=== PATIENT | male | born 1940 | race Caucasian/White ===

== ENCOUNTER 2016-04-23 06:00 | Outpatient (CLI) | payer MEDICARE ==
[~2016-04-23] VITALS: Ht 188 cm; Wt 103.0 kg
[~2016-04-23 06:00] MED LIST: ASP325T; ASP325TEC; ASP81TEC PO; ATOR80TA; CHOL2000; CLPD75T; CYCL10TA9 PO; ERGO400C; GLUC1CAP37 PO; MULT1TAB63; NAPR-243 PO; NEBI5TAB8 PO; TRM50T PO; WRF5T PO; [UNRECOGNIZED DRUG - CODE]; [UNRECOGNIZED DRUG - OTHER] TP
[2016-04-23] MEDS ORDERED: CHOL500050 PO (12:24)
[2016-04-23] MEDS ORDERED: APIX2.5T PO (12:24)
== END 2016-04-23 12:32 ==
LOC: PREOP 06:00
PROVIDERS: ATTEND Internal Medicine
DX: Z01.818 Encounter for other preprocedural examination (principal); Z12.11 Encounter for screening for malignant neoplasm of colon; Z86.010 Personal history of colon polyps

== ENCOUNTER 2016-04-25 07:14 | Day surgery (SDC) | payer MEDICARE ==
[~2016-04-25] VITALS: Ht 188 cm; Wt 103.0 kg
[~2016-04-25 07:14] MED LIST changes: +APIX2.5T PO; +CHOL500050 PO
[2016-04-25] MEDS ORDERED: 1/2 NS IV SOLUTION 1,000 ML IV STA (07:40)
--- NOTE | 2016-04-25 07:40 | Pre-Op Note & Conscious Sedat ---
Pre-Operative Progress Note H&P Reviewed The H&P was reviewed, patient examined and no changes noted. Date H&P Reviewed: Apr 25, 2016 Time H&P Reviewed: 07:39 Conscious Sedation Pre-Proced ASA Class: 2 Airway Mallampati Classification: ([place] appropriate class) I. II. III, IV Lungs Heart ASA score ASA 1: a normal healthy patient ASA 2: a patient with a mild systemic disease (mid diabetes, controlled hypertension, obesity ASA 3: a patient with a severe systemic disease that limits activity (angina , COPD, prior Myocardial infarction) ASA 4: a patient with an incapacitating disease that is a constant threat to life (CHF, renal failure) ASA 5: a moribund patient not expected to survive 24 hrs. (ruptured aneurysm) ASA 6: a declared brain patient whose organs are being harvested. For emergent operations, add the letter E after the classification Grade 2 Sedation Plan: Analgesia, Amnesia, Plan communicated to team members, Discussed options with patient/fam, Discussed risks with patient/fam Note The patient is an appropriate candidate to undergo the planned procedure, sedation, and anesthesia. The patient immediately re-assessed prior to indication. MARIO ESTEVEZ MD Apr 25, 2016 07:40
[2016-04-25] MEDS ORDERED: 1/2 NS IV SOLUTION 1,000 ML IV ONE (07:44)
[2016-04-25] MEDS ORDERED: FLUMAZENIL (ROMAZICON) 0.1 MG/ML 5 ML VIAL INJ PRN (07:45)
[2016-04-25] MEDS ORDERED: MIDAZOLAM 2 MG/2 ML (VERSED) VIAL IVP PRN (07:45)
[2016-04-25] MEDS ORDERED: NALOXONE 0.4 MG/ML 1 ML (NARCAN) VIAL IVP PRN (07:45)
[2016-04-25] MEDS ORDERED: LIDOCAINE JELLY 2% (XYLOCAINE) 5 ML TUBE MM PRN (07:45)
[2016-04-25 08:04] VITALS: BP 135/77
[2016-04-25] MEDS ORDERED: fentaNYL INJECTION 100 MCG/2 ML AMP ONE ×2 (08:48→09:23)
[2016-04-25] MEDS ORDERED: MIDAZOLAM 2 MG/2 ML (VERSED) VIAL ONE ×2 (08:48)
[2016-04-25] MEDS ORDERED: LIDOCAINE JELLY 2% (XYLOCAINE) 5 ML TUBE ONE (08:49)
[2016-04-25] MEDS: fentaNYL INJECTION 100 MCG/2 ML AMP IVP PRN ×3 (09:03→09:24)
[2016-04-25 09:45] VITALS: BP 145/79
[2016-04-25 10:10] VITALS: BP 141/95
[2016-04-25 10:21] VITALS: BP 141/95
--- NOTE | 2016-04-28 09:41 | PROCEDURE REPORT ---
PROCEDURE PHYSICIAN: MARIO ESTEVEZ DATE OF PROCEDURE: 04/25/2016 COLONOSCOPY SUMMARY: INDICATION FOR THE PROCEDURE: Screening colonoscopy deemed to be of higher than average risk due to a past history of prostate cancer and radiation therapy. PROCEDURE: The patient was placed in the lateral decubitus position. Prior to undergoing colonoscopy, digital rectal evaluation was performed. Anal sphincter tone was normal. No evidence for prostatic tissue was present and no nodularity was noted. No abnormalities were noted to digital inspection of the anal canal or distal rectal vault. The colonoscope was inserted into the rectum and under direct visualization, advanced to the cecum. The cecum was identified by identification of the ileocecal valve and cecal strap. Photographic documentation was obtained. A careful inspection was made as the colonoscope was withdrawn. The patient tolerated the procedure well. FINDINGS: There was no evidence for internal or external hemorrhoids. 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 No evidence for blood was noted in the colon and no evidence for neoplasia was noted. Moderate diverticular disease prominently noted the sigmoid colon was noted and several right-sided diverticulum were noted as well. No other abnormalities were noted on today's colonoscopy and no evidence for neoplasia was identified. ASSESSMENT: Moderate diverticular disease predominantly noted in the sigmoid colon but with several ascending colonic diverticulum and transverse colonic diverticulum being appreciated as well. 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 There was no palpable evidence for prostatic tissue or cancer. Job ID: [id number] Dictated Date: 04/25/2016 10:48:17 Bulk Mail Clerk Date: 04/28/2016 09:36:40 / ketan SALOMON
--- NOTE | 2016-04-30 07:28 | HISTORY AND PHYSICAL ---
DATE OF ADMISSION: 04/25/2016 DICTATING PHYSICIAN: Dr. Rubio COLONOSCOPY HISTORY AND PHYSICAL: Mr. Sosa is a 75-year-old a white male, in otherwise good health who is being set-up for preventative colonoscopy. He is deemed to be of higher than average risk due to past history of prostate cancer diagnosed in 2004 for which he underwent a radical prostatectomy. There has been no evidence for recurrence. He underwent colonoscopy in 2010, at which time he had evidence for mild diverticular disease. He did not have evidence for neoplasia at that time. He does have some intermittent abdominal pain, but has noted no evidence for rectal bleeding. He reports no bowel habit change and his weight has been stable. PAST MEDICAL HISTORY: Significant for: 1. Carotid endarterectomy in 2006 for critical disease. 2. Moderate coronary disease without history of acute coronary syndrome and has had no evidence for progression of the disease since starting statin therapy and antihypertensive therapy. He exercises on a regular basis. 3. He has had a history of DVT and persistent elevation in d-dimer therapy when he has been off of anticoagulant therapy so he has been on Eliquis 2.5 b.i.d. without evidence for recurrence. FAMILY HISTORY: Pertinent for colon polyps in several family members. He has not aware of any family history for colon cancer. PHYSICAL EXAMINATION: Reveals a white male, appearing younger than his stated age. Blood pressure was 146/80. HEENT EXAMINATION: Unremarkable. NECK: Reveals no JVD, adenopathy or bruits. CHEST: Clear. CV: Reveals regular rate and rhythm without murmur, S3 or S4. ABDOMEN: Soft, supple without masses, organomegaly or tenderness. RECTAL EXAM: Deferred to the time of colonoscopy scheduled for May 02. EXTREMITIES: Reveal trace bilateral edema. Chronic large vessel varicosities are noted bilaterally unchanged. Homans sign is negative. SKIN EVALUATION: Does reveal an actinic keratosis on the helix of the left ear. No other suspicious nevi are noted. He did undergo cryotherapy to this lesion and expectations for erythema, swelling and possible blistering were discussed with the patient. ASSESSMENT: The patient was set-up for colonoscopy for prevention. He has a past history of prostate cancer. He has a family history for colon polyps. He has a personal past history for colon polyps. He was set-up for April 25. Prep instructions were given and questions were answered. Job ID: [id number] Dictated Date: 04/21/2016 18:04:00 Grape Cutter Date: 04/22/2016 08:12:20/ketan
== END 2016-04-25 10:26 | disposition home or self-care (01) ==
LOC: ENDO 07:14
PROVIDERS: ATTEND Internal Medicine
DX: Z12.11 Encounter for screening for malignant neoplasm of colon (principal); K57.30 Diverticulosis of large intestine without perforation or abscess without bleeding; Z86.010 Personal history of colon polyps; Z85.46 Personal history of malignant neoplasm of prostate; Z92.3 Personal history of irradiation

== ENCOUNTER → 2018-01-21 | Outpatient (CLI) | payer MEDICARE ==
--- NOTE | 2018-01-21 15:14 | Diagnostic Imaging Report ---
INDICATION: Low back pain. TIME OF EXAM: 12:54 PM FINDINGS: Three views of the lumbar spine were obtained. Curvature and alignment are normal. Vertebral body heights are maintained. No acute compression fracture is seen. There is significant degenerative disc disease at all levels with significant variable disc space narrowing and marginal spurring. There is multilevel facet arthropathy. Abdominal aorta is heavily calcified. IMPRESSION: Lumbar spondylosis. No acute bony abnormality is detected. Dictated by: Dictated on workstation # [id number]
--- NOTE | 2018-01-21 15:15 | Diagnostic Imaging Report ---
INDICATION: Low back pain and leg weakness. TIME OF EXAM: 12:56 p.m. FINDINGS: The sacroiliac joints have a normal appearance. No sclerosis, ankylosis or osseous erosion is seen. There are multiple surgical clips in the pelvis. IMPRESSION: Unremarkable SI joints. Dictated by: Dictated on workstation # [id number]
== END ==
LOC: RAD 12:17
PROVIDERS: ATTEND Family Medicine
DX: M47.816 Spondylosis without myelopathy or radiculopathy, lumbar region (principal)
CPT/HCPCS: 72100; 72202

== ENCOUNTER → 2018-02-04 | Outpatient (CLI) | payer MEDICARE ==
--- NOTE | 2018-02-04 09:19 | Diagnostic Imaging Report ---
CLINICAL INDICATION: Patient with calcified aorta and back pain. EXAM: Ultrasound of the abdominal aorta. COMPARISON STUDY: None. FINDINGS: The abdominal aorta has smooth contour and caliber without evidence of aneurysms. The maximum AP and transverse diameters for the upper, mid, and distal abdominal aorta are 2.2 cm x 1.7 cm, 2.1 cm x 1.7 cm, and 1.8 cm x 1.7 cm, respectively. Both common iliac artery contours are smooth with normal caliber with the right and left measuring 1.1 cm and 1.1 cm in greatest AP dimension. IMPRESSION: There is no evidence of aneurysmal dilation of the abdominal aorta or bilateral common iliac arteries. Dictated by: Dictated on workstation # [id number]
--- NOTE | 2018-02-04 10:11 | Diagnostic Imaging Report ---
PROCEDURE: MRI lumbar spine. TECHNIQUE: Multiplanar, multisequence MRI of the lumbar spine was performed without contrast. INDICATION: Chronic low back pain. History of prostate cancer. COMPARISON: Lumbar spine radiographs 01/21/2018. FINDINGS: Transitional segment anatomy. For the purposes of this report, there are five lumbar type vertebral bodies with a vestigial disc at S1-S2. Normal alignment. Vertebral body heights are preserved. There are moderate to advanced diffuse degenerative endplate changes which are greatest at L5-S1 where there is fusion of the vertebral bodies. Bone marrow signal is otherwise unremarkable. No abnormal signal in the conus which terminates at L2. Normal morphology of the cauda equina. The visualized abdominal and pelvic contents are unremarkable. L1-L2: No spinal canal, lateral recess or neural foraminal narrowing. L2-L3: Posterior disc osteophyte complex and ligamentous hypertrophy result in mild spinal canal and bilateral lateral recess narrowing. There is also mild bilateral neural foraminal narrowing. L3-L4: Posterior disc osteophyte complex, ligamentous hypertrophy and facet arthropathy all contribute to moderate spinal canal and bilateral lateral recess narrowing. There is moderate right and advanced left neural foraminal narrowing. L4-L5: Posterior disc osteophyte complex, ligamentous hypertrophy and facet arthropathy result in advanced right and mild left lateral recess narrowing. There is mild spinal canal narrowing. Advanced bilateral neural foraminal narrowing. L5-S1: No spinal canal, lateral recess or neural foraminal narrowing. IMPRESSION: 1. Transitional segment anatomy. Please note the numbering on this report may differ from prior radiology or procedure reports. 2. Spondylotic changes result in moderate spinal canal narrowing at L3-L4. No other high-grade spinal canal narrowing. 3. Scattered moderate and advanced neural foraminal and lateral recess narrowing as above. 4. No acute osseous findings. Dictated by: Dictated on workstation # [id number]
--- NOTE | 2018-02-04 10:37 | Diagnostic Imaging Report ---
PROCEDURE: MRI pelvis without contrast. TECHNIQUE: Multiplanar, multisequence MRI of the pelvis was performed without contrast. INDICATION: Back pain. There is a small area of increased T2 signal identified in right aspect of the sacrum, approximately level of S2. This is nonspecific but could represent a very small area of insufficiency fracture. The primary abnormality is an area of the curvilinear low signal on T1-weighted images within the supra-acetabular location on the left. This shows moderate surrounding edema and is consistent with an insufficiency fracture. The superior and inferior pubic rami are unremarkable. Iliac bones appear unremarkable. Proximal femora are unremarkable. IMPRESSION: Findings consistent with pelvic insufficiency fracture in the left supra-acetabular location. There is also a small area of indeterminate edema in the right sacral ala which may represent a second location of insufficiency fracture. Left sacral ala is unremarkable. No other significant abnormality is seen. Dictated by: Dictated on workstation # [id number]
== END ==
LOC: RAD 07:45
PROVIDERS: ATTEND Nurse Practitioner Family
DX: M48.061 Spinal stenosis, lumbar region without neurogenic claudication (principal); M25.78 Osteophyte, vertebrae; M46.86 Other specified inflammatory spondylopathies, lumbar region; M99.73 Connective tissue and disc stenosis of intervertebral foramina of lumbar region; M47.817 Spondylosis without myelopathy or radiculopathy, lumbosacral region; I70.0 Atherosclerosis of aorta; M53.3 Sacrococcygeal disorders, not elsewhere classified; Z85.46 Personal history of malignant neoplasm of prostate; Z98.1 Arthrodesis status
CPT/HCPCS: 72148; 72195; 76775

== ENCOUNTER → 2018-03-04 | Outpatient (CLI) | payer MEDICARE ==
--- NOTE | 2018-03-04 14:43 | Diagnostic Imaging Report ---
INDICATION: Prostate cancer with radiation. COMPARISON: None. FINDINGS: AP Spine L1-L4: [BMD (g/cm2): 1.602] [T-Score: 3.0] [Z-Score: 2.9] [BMD Previous: ] [BMD % Change: ] LT Hip Neck: [BMD (g/cm2): .0879] [T-Score: -1.5] [Z-Score: -0.5] LT Hip Total: [BMD (g/cm2):1.079] [T-Score:-0.2] [Z-Score: 0.3] [BMD Previous: ] [BMD % Change: ] RT Hip Neck: [BMD (g/cm2):0.922] [T-Score:-1.1] [Z-Score:-0.2] RT Hip Total: [BMD (g/cm2):1.004] [T-score:-0.7] [Z-Score:-0.2] [BMD Previous: ] [BMD % Change: ] *Indicates significant change from prior examination based on 95% confidence level. World Health Organization criteria for BMD interpretation classify patients as Normal (T-score at or above -1.0), Osteopenic (T-score between -1.0 and -2.5) or Osteoporotic (T-score at or below -2.5). LIMITATIONS AND MODIFICATION: None. FRACTURE RISK (FRAX SCORE): The ten year probability of (%): Major Osteoporotic Fracture: [ ] Hip Fracture: [ ] IMPRESSION: 1. Normal bone mineral density. 2. Baseline examination. 3. See below National Osteoporosis Foundation guidelines on when to potentially initiate pharmacologic therapy. Based on the National Osteoporosis Foundation Guidelines, pharmacologic treatment should be initiated in any of the following, unless clinical conditions suggest otherwise: * Any patient with prior fragility fracture of the hip or vertebrae. A spine fracture indicates 5X risk for subsequent spine fracture and 2X risk for subsequent hip fracture. * Osteoporosis (T-score <-2.5). * Postmenopausal women and men age 50 and older with low bone mass/osteopenia (T-score between -1.0 and -2.5) by DXA and 10-year major osteoporotic fracture greater than 20% or a 10-year probability of hip fracture greater than 3%. These fracture risks are supplied above in the FRAX score, if applicable. * Clinician judgment and/or patient preferences may indicate treatment for people with 10-year fracture probabilities above or below these levels. Dictated by: Dictated on workstation # [id number]
== END ==
LOC: RAD 09:33
PROVIDERS: ATTEND Nurse Practitioner Family
DX: M89.9 Disorder of bone, unspecified (principal); C61 Malignant neoplasm of prostate; Z92.21 Personal history of antineoplastic chemotherapy
CPT/HCPCS: 36415; 77080; 82306

== ENCOUNTER 2018-10-26 09:28 | Inpatient (IN) | payer MEDICARE | END 2018-10-28 13:12 | disposition home or self-care (01) | LOC: 4TH 09:28 | DX: I48.0 Paroxysmal atrial fibrillation (principal); I50.21 Acute systolic (congestive) heart failure; D68.2 Hereditary deficiency of other clotting factors; C79.10 Secondary malignant neoplasm of unspecified urinary organs; I25.10 Atherosclerotic heart disease of native coronary artery without angina pectoris; I73.9 Peripheral vascular disease, unspecified; E78.00 Pure hypercholesterolemia, unspecified; I10 Essential (primary) hypertension; I07.1 Rheumatic tricuspid insufficiency; I65.23 Occlusion and stenosis of bilateral carotid arteries; R23.0 Cyanosis; M19.91 Primary osteoarthritis, unspecified site; Z90.79 Acquired absence of other genital organ(s); Z85.46 Personal history of malignant neoplasm of prostate; Z86.718 Personal history of other venous thrombosis and embolism; Z86.711 Personal history of pulmonary embolism; Z79.01 Long term (current) use of anticoagulants; Z97.4 Presence of external hearing-aid ==

== ENCOUNTER → 2018-10-26 | Outpatient (CLI) | payer MEDICARE ==
[~2018-10-26] MED LIST changes: +ACET-2650 PO; +APIX5TAB PO; +ATOR40TA70 PO; +DIGO250T15 PO; +DILT120C82 PO; +METO-395 PO; +TIZA2TAB4 PO; +TRAM50TA2 PO; +TRIA1CAP4 PO
== END ==
LOC: CARD 07:52
PROVIDERS: ATTEND Internal Medicine
DX: I08.1 Rheumatic disorders of both mitral and tricuspid valves (principal); I48.91 Unspecified atrial fibrillation
CPT/HCPCS: 93306

== ENCOUNTER 2018-12-15 07:15 | Observation (INO) | payer MEDICARE ==
[2018-12-15] VITALS (16 sets, daily range): BP systolic 94–161; BP diastolic 60–109
[~2018-12-15] VITALS: Ht 187 cm; Wt 91.2 kg
[2018-12-15] MEDS ORDERED: NS IV 1000 ML 1,000 ML IV SCH (07:21)
[2018-12-15] MEDS ORDERED: LIDOCAINE 2% VISCOUS 15 ML UDC ONE (07:26)
[2018-12-15] MEDS ORDERED: NS IV 1000 ML 1,000 ML ONE (07:26)
[2018-12-15 07:56] LABS: HEMOGLOBIN 14.1 G/DL (13.3-17.7); RED CELL DISTRIBUTION WIDTH 14.7 % (10.0-14.5); WHITE BLOOD COUNT 6.6 10^3/uL (4.3-11.0)
[2018-12-15 08:09] LABS: ALANINE AMINOTRANSFERASE 23 U/L (0-55); ALBUMIN 4.3 GM/DL (3.2-4.5); ALKALINE PHOSPHATASE 93 U/L (40-136); BUN/CREATININE RATIO 19; CALCIUM 9.4 MG/DL (8.5-10.1); CARBON DIOXIDE 28 MMOL/L (21-32); CHLORIDE 102 MMOL/L (98-107); GFR ESTIMATED > 60; GLUCOSE 100 MG/DL (70-105); POTASSIUM 3.9 MMOL/L (3.6-5.0); SODIUM 139 MMOL/L (135-145); TOTAL PROTEIN 7.2 GM/DL (6.4-8.2)
[2018-12-15] MEDS ORDERED: proPOfol 200 MG/20 ML (DIPRIVAN) VIAL IV ONE (08:17)
[2018-12-15] MEDS ORDERED: MIDAZOLAM 5 MG/5 ML (VERSED) VIAL ONE (08:18)
--- NOTE | 2018-12-15 08:18 | Diagnostic Imaging Report ---
Indication: Atrial fibrillation Frontal chest obtained at 747 hours am, and compared to 1:25 PM Heart and mediastinal silhouette are normal appearance. There are mild chronic appearing increased basilar markings which are similar to the prior study. There is no new consolidation or pneumothorax or pleural fluid. IMPRESSION: Chronic appearing increased basilar markings. No acute consolidation or pleural fluid. Dictated by: Dictated on workstation # [id number]
[2018-12-15] MEDS ORDERED: meTOprolol 5 MG/5 ML (LOPRESSOR) VIAL ONE (08:47)
--- NOTE | 2018-12-15 08:50 | NUR ---
SPOKE WITH PT, WENT THRU EXT MED HISTORY WELL CALLING RUBÉN TO COMPLETE THE MED REC. ALL MEDICATIONS HAVE GOOD FILL DATES AND PT WAS ABLE TO TELL ME HOW HE TAKES ALL HIS HOME MEDS. OTC MEDS: ACETAMINOPHEN 650M PRN
--- NOTE | 2018-12-15 08:54 | Anesthesia-General Post-Op ---
MAC Patient Condition Mental Status/LOC: Same as Preop Cardiovascular: Satisfactory Nausea/Vomiting: Absent Respiratory: Satisfactory Pain: Controlled Complications: Absent Post Op Complications Complications None Follow Up Care/Instructions Patient Instructions None needed. Anesthesiology Discharge Order Discharge Order Patient is doing well, no complaints, stable vital signs, no apparent adverse anesthesia problems. No complications reported per nursing. ANGEL MARTINEZ CRNA Dec 15, 2018 08:54
--- NOTE | 2018-12-15 08:54 | Anesthesia-Procedure Note ---
Procedures/Interventions Procedure Start/Stop/Diagnosis Date of Procedure: Dec 15, 2018 (0835) Start Time: 08:35 Referring Physician: Arlene Stop Time: 08:48 MIRACLE/Cardioversion Anesthesia Type: MAC ASA Class: 3 Medications Versed 2mg, Propofol 100mg Monitors and Equipment: BP Cuff - Right, Continuous EKG, End Tidal CO2, IV, Pulse Oximeter READING,ANGEL Mullins CRNA Dec 15, 2018 08:54
--- NOTE | 2018-12-15 08:56 | Cardiac Procedure Note-CS/ASA ---
Pre-Procedure Note Pre-Op Procedure Note H&P Reviewed The H&P was reviewed, patient examined and no changes noted. Date H&P Reviewed: Dec 15, 2018 (0835) Time H&P Reviewed: 08:56 Conscious Sedation Pre-Proced Time 08:56 ASA Score 3 For ASA 3 and 4: Consider anesthesia and medical clearance. Also, for patients with a history of failed moderate sedation consider anesthesia. Airway Lungs Heart ASA score ASA 1: a normal healthy patient ASA 2: a patient with a mild systemic disease (mid diabetes, controlled hypertension, obesity x ASA 3: a patient with a severe systemic disease that limits activity (angina, COPD, prior Myocardial infarction) ASA 4: a patient with an incapacitating disease that is a constant threat to life (CHF, renal failure) ASA 5: a moribund patient not expected to survive 24 hrs. (ruptured aneurysm) ASA 6: a declared brain- patient whose organs are being harvested. For emergent operations, add the letter E after the classification Mallampati Classification Grade 3 Sedation Plan Analgesia, Amnesia, Plan communicated to team members, Discussed options with patient/fam, Discussed risks with patient/fam The patient is an appropriate candidate to undergo the planned procedure, sedation, and anesthesia. The patient immediately re-assessed prior to indication. MOE SIMON MD Dec 15, 2018 08:56
--- NOTE | 2018-12-15 08:57 | Cardioversion ---
Cardioversion PROCEDURE PHYSICIAN: Moe Jacobs DATE OF PROCEDURE: 12/15/18 DIRECT EXTERNAL ELECTRICAL CARDIOVERSION: Indications: Atrial Fibrillation with rapid ventricular rate Preoperative diagnoses: Atrial Fibrillation with rapid ventricular rate Postoperative diagnosis: Sinus rhythm, Successful Electrical Cardioversion Anesthesia: By Anesthesia services Complications: None Specimen: None Contrast: 0 Flouroscopy: none Procedure Details: The patient was brought the slab stripper after informed consent was taken, all the risks and complications were explained including the risk of stroke. Electrical cardioversion was carried out with anesthesia support with propofol. 200 joules of synchronized shock was delivered through external patches which promptly restored sinus rhythm. The patient tolerated the procedure well. Conclusions: Successful MIRACLE with electrical cardioversion with no complication, patient stayed in sinus rhythm for a few minutes then went back to atrial fibrillation. Patient will be admitted and loaded with amiodarone and an attempt for cardioversion tomorrow morning Final Diagnosis: Paroxysmal atrial fibrillation Palpitation Hypertension Hyperlipidemia MOE JACOBS MD Dec 15, 2018 8:57 am
[2018-12-15] MEDS ORDERED: DRON400T2 PO (09:00)
[2018-12-15] MEDS ORDERED: DRONEDARONE TABLET 400 MG TABLET PO SCH (09:00)
[2018-12-15] MEDS ORDERED: AMIODARONE INJECTION 450 MG in D5W IV SOLUTION (EXCEL) 250 ML IV SCH (09:15)
[2018-12-15] MEDS ORDERED: AMIODARONE FOR BOLUS 150 MG in D5W 100 ML IVPB 100 ML IV ONE ×4 (09:15)
[2018-12-15] MEDS: AMIODARONE INJECTION 450 MG in D5W IV SOLUTION (EXCEL) 250 ML IV SCH ×2 (09:30→18:03)
--- NOTE | 2018-12-15 09:55 | NUR ---
DURING PROCEDURE VERSED 2MG IV AND PROPOFOL 100MG IV USED PER ANESTHESIA.
[2018-12-15] MEDS ORDERED: meTOprolol 5 MG/5 ML (LOPRESSOR) VIAL IV ONE (10:00)
[2018-12-15] MEDS: meTOprolol SUCCINATE 100 MG (TOPROL XL) TAB PO SCH (10:45)
[2018-12-15] MEDS: AMIODARONE 200 MG (CORDARONE) TAB PO SCH ×2 (10:45→20:07)
[2018-12-15] MEDS: DIGOXIN 0.25 MG (LANOXIN) TAB PO SCH (10:45)
[2018-12-15] MEDS: APIXABAN 5 MG (ELIQUIS) TABLET PO SCH ×2 (10:45→20:07)
[2018-12-15] MEDS: TRIAMTERENE/HCTZ 75-50 (MAXZIDE,DYAZIDE) TABLET PO SCH (11:24)
[2018-12-16] VITALS (8 sets, daily range): BP systolic 97–125; BP diastolic 53–78
[2018-12-16] MEDS ORDERED: NS IV 500 ML 500 ML ONE (07:31)
[2018-12-16] MEDS ORDERED: proPOfol 200 MG/20 ML (DIPRIVAN) VIAL IV ONE (07:37)
[2018-12-16] MEDS ORDERED: LIDOCAINE 2% VISCOUS 15 ML UDC ONE (07:37)
[2018-12-16] MEDS ORDERED: MIDAZOLAM 2 MG/2 ML (VERSED) VIAL ONE (07:37)
[2018-12-16] MEDS ORDERED: fentaNYL INJECTION 100 MCG/2 ML AMP ONE (07:38)
--- NOTE | 2018-12-16 08:23 | Cardiac Procedure Note-CS/ASA ---
Pre-Procedure Note Pre-Op Procedure Note H&P Reviewed The H&P was reviewed, patient examined and no changes noted. Date H&P Reviewed: Dec 16, 2018 (0835) Time H&P Reviewed: 08:00 Conscious Sedation Pre-Proced Time 08:00 ASA Score 3 For ASA 3 and 4: Consider anesthesia and medical clearance. Also, for patients with a history of failed moderate sedation consider anesthesia. Airway Lungs Heart ASA score ASA 1: a normal healthy patient ASA 2: a patient with a mild systemic disease (mid diabetes, controlled hypertension, obesity x ASA 3: a patient with a severe systemic disease that limits activity (angina, COPD, prior Myocardial infarction) ASA 4: a patient with an incapacitating disease that is a constant threat to life (CHF, renal failure) ASA 5: a moribund patient not expected to survive 24 hrs. (ruptured aneurysm) ASA 6: a declared brain- patient whose organs are being harvested. For emergent operations, add the letter E after the classification Mallampati Classification Grade 3 Sedation Plan Analgesia, Amnesia, Plan communicated to team members, Discussed options with patient/fam, Discussed risks with patient/fam The patient is an appropriate candidate to undergo the planned procedure, sedation, and anesthesia. The patient immediately re-assessed prior to indication. MOE SIMON MD Dec 16, 2018 08:23
--- NOTE | 2018-12-16 08:24 | Cardioversion ---
Cardioversion PROCEDURE PHYSICIAN: Moe Jacobs DATE OF PROCEDURE: 12/16/18 DIRECT EXTERNAL ELECTRICAL CARDIOVERSION: Indications: Atrial Fibrillation with rapid ventricular rate Preoperative diagnoses: Atrial Fibrillation with rapid ventricular rate Postoperative diagnosis: Sinus rhythm, Successful Electrical Cardioversion History: 78 years old gentleman with atrial fibrillation, underwent MIRACLE with electrical cardioversion yesterday, failed to maintain sinus rhythm, he was started on amiodarone bolus and a drip and scheduled for cardioversion today Anesthesia: By Anesthesia services Complications: None Specimen: None Contrast: 0 Flouroscopy: none Procedure Details: The patient was brought the geochemical laboratory technician after informed consent was taken, all the risks and complications were explained including the risk of stroke. Electrical cardioversion was carried out with anesthesia support with propofol. 200 joules of synchronized shock was delivered through external patches which promptly restored sinus rhythm. The patient tolerated the procedure well. Conclusions: Successful electrical cardioversion in terminating atrial fibrillation Final Diagnosis: Paroxysmal atrial fibrillation Frequent PVCs Hypertension Hyperlipidemia MOE JACOBS MD Dec 16, 2018 08:24
--- NOTE | 2018-12-16 08:26 | Cardiology Progress Note ---
Subjective Date Seen by Provider: Dec 16, 2018 Time Seen by Provider: 08:25 Subjective/Events-last exam Patient is laying down in bed, feeling better. No new complaint Review of Systems General: No Chills, No Night Sweats, No Fatigue, No Malaise, No Appetite, No Other HEENT: No Head Aches, No Visual Changes, No Eye Pain, No Ear Pain, No Dysphasia, No Sinus Congestion, No Post Nasal Drip, No Sore Throat, No Other Pulmonary: No Dyspnea, No Cough, No Pleuritic Chest Pain, No Other Cardiovascular: No: Chest Pain, Palpitations, Orthopnea, Paroxysmal Noc. Dyspnea, Edema, Lt Headedness, Other Objective-Cardiology Exam Last Set of Vital Signs Vital Signs 12/15/18 12/16/18 12/16/18 08:47 04:00 08:00 Temp 36.4 Pulse 66 Resp 26 B/P (MAP) 125/65 (85) O2 Delivery Room Air O2 Flow Rate 3.00 Capillary Refill : I&O Intake and Output 12/16/18 00:00 Intake Total 1400 ml Output Total 1320 ml Balance 80 ml Intake Oral 1050 ml IV Total 350 ml Output Urine Total 1320 ml # Bowel Movements 1 General: Alert, Oriented X3, Cooperative HEENT: Atraumatic, PERRLA Neck: Supple, No JVD, No Thyromegaly Lungs: Clear to Auscultation, Normal Air Movement Heart: Regular Rate, Normal S1, Normal S2, No Murmurs Abdomen: Normal Bowel Sounds, Soft, No Tenderness, No Hepatosplenomegaly, No Masses Extremities: No Clubbing, No Cyanosis, No Edema, Normal Pulses, No Tenderness/Swelling Skin: No Rashes, No Breakdown, No Significant Lesion Neuro: Normal Gait, Normal Speech, Strength at 5/5 X4 Ext, Normal Tone, Sensat ion Intact Psych/Mental Status: Mental Status NL, Mood NL A/P-Cardiology Admission Diagnosis Paroxysmal atrial fibrillation Premature ventricular contractions Hypertension Hyperlipidemia Assessment/Plan Paroxysmal atrial fibrillation, underwent MIRACLE with electrical cardioversion yesterday, failed to maintain sinus rhythm, I started him on amiodarone bolus and a drip and repeated cardioversion today and it was successful in terminating atrial fibrillation Hypertension, borderline hypotension with medication Frequent premature ventricular contractions. Hyperlipidemia. MOE SIMON MD Dec 16, 2018 08:26
[2018-12-16] MEDS ORDERED: AMIO200T4 PO (08:28)
[2018-12-16] MEDS ORDERED: DILTIAZEM 120 MG (CARDIZEM CD) CAP PO SCH (09:00)
[2018-12-16] MEDS: AMIODARONE 200 MG (CORDARONE) TAB PO SCH (09:04)
[2018-12-16] MEDS: meTOprolol SUCCINATE 100 MG (TOPROL XL) TAB PO SCH (09:05)
[2018-12-16] MEDS: TRIAMTERENE/HCTZ 75-50 (MAXZIDE,DYAZIDE) TABLET PO SCH (09:05)
[2018-12-16] MEDS: DIGOXIN 0.25 MG (LANOXIN) TAB PO SCH (09:05)
[2018-12-16] MEDS: APIXABAN 5 MG (ELIQUIS) TABLET PO SCH (09:05)
--- NOTE | 2018-12-16 09:45 | NUR ---
Pt is [employer] and involved with local [employer]. Associate Sales Manager provided prayer and blessing.
--- NOTE | 2018-12-16 10:27 | Progress Note ---
Standard Progress Note Progress Notes/Assess & Plan Date Seen by a Provider: Dec 16, 2018 Time Seen by a Provider: 08:00 Progress/Assessment & Plan consult for sedation for cardioversion. asa3. start time 0800 end time 804. 2mg versed given and 40mg propofol. tolerated procedure well NUPUR GREEN CRNA Dec 16, 2018 10:26
--- NOTE | 2018-12-16 16:22 | NUR ---
0745--LIDOCAINE GIVEN 075--TIME IN 756--1 SHOCK GIVEN@ 200 JOULES, PT IN SR 08--TIME OUT V/S: HR 62, RESP 13, BP 125/65, O2 100 2L NC, TEMP 36.3 ANESTHESIOLOGIST GAVE: 2 OF VERSED AND 40 OF PROPOFOL
== END 2018-12-16 11:17 | disposition home or self-care (01) ==
LOC: CATH 07:15 → ICU 09:30
PROVIDERS: ADMIT Internal Medicine Cardiovascular Disease; ATTEND Internal Medicine Cardiovascular Disease
DX: I48.0 Paroxysmal atrial fibrillation (principal); I25.10 Atherosclerotic heart disease of native coronary artery without angina pectoris; I65.29 Occlusion and stenosis of unspecified carotid artery; I11.9 Hypertensive heart disease without heart failure; E78.2 Mixed hyperlipidemia; Z79.899 Other long term (current) drug therapy; Z79.01 Long term (current) use of anticoagulants; Z86.718 Personal history of other venous thrombosis and embolism; Z85.46 Personal history of malignant neoplasm of prostate; Z90.79 Acquired absence of other genital organ(s); Z87.891 Personal history of nicotine dependence; Z83.3 Family history of diabetes mellitus; Z82.3 Family history of stroke; Z82.49 Family history of ischemic heart disease and other diseases of the circulatory system; Z80.9 Family history of malignant neoplasm, unspecified
CPT/HCPCS: 36415; 71045; 80053; 85027; 87081; 93005; 93312; 93320; 93325; 99211

== ENCOUNTER → 2019-05-30 | Outpatient (CLI) | payer MEDICARE ==
[~2019-05-30] VITALS: Ht 188 cm; Wt 97.0 kg
[~2019-05-30] MED LIST changes: +AMIO200T4 PO; +CATHETER FLUSH 10 ML SYR IV PRN; +DRON400T2 PO; -METO-395 PO; +MTP100TCR PO; +REGADENOSON 0.4 MG/5 ML SYR (LEXISCAN) IV ONE; -TRAM50TA2 PO
[2019-05-30 09:15] VITALS: BP 106/78
--- NOTE | 2019-05-30 15:08 | STRESS TEST ---
DATE OF SERVICE: 05/30/2019 EXERCISE AND LEXISCAN MYOVIEW STRESS REPORT REFERRING PHYSICIAN: Martin Rubio MD Baseline heart rate is 68, baseline blood pressure 135/88. Baseline EKG is sinus rhythm with no ischemic changes. In summary, the patient was injected with 10.92 mCi of technetium-99 Myoview and the resting images were obtained. Then, the patient started exercising with a baseline heart rate, blood pressure and EKG mentioned above. The patient was able to exercise for 6 minutes on standard Darren protocol, unable to achieve maximum heart rate. Test was terminated and converted to Lexiscan Myoview stress test. The patient received 0.4 mg of Lexiscan followed by 28.3 mCi of technetium-99 Myoview. Throughout the test, there were no EKG changes. The resting and stress images were reviewed and compared in the short axis, horizontal long axis, and vertical long axis views. Review of the images showed diaphragmatic attenuation with mild decreased uptake involving the inferoapical segment and inferolateral wall with subtle reversibility. SSS is 5, SDS 3, TID value 1.05. On the gated images, the left ventricle appeared to be normal size with normal contractility. Calculated ejection fraction 51%. CONCLUSION: 1. The patient tolerated Lexiscan well, unable to exercise beyond 6 minutes on standard Darren protocol. There are no EKG changes on exercise. 2. Diaphragmatic attenuation affecting the quality of the images with mild decreased uptake at the inferoapical segment and the apical segment of the inferolateral wall with no significant ischemia or infarction. 3. Normal left ventricular size with normal contractility. Calculated ejection fraction 51%. Job ID: [id number] DocumentID: [id number] Dictated Date: 05/30/2019 12:44:24 Investment Analyst Date: 05/30/2019 15:08:01 Dictated By: MOE SIMON MD
== END ==
LOC: CARD 07:53
PROVIDERS: ATTEND Internal Medicine Cardiovascular Disease
DX: I25.10 Atherosclerotic heart disease of native coronary artery without angina pectoris (principal); I65.29 Occlusion and stenosis of unspecified carotid artery; I10 Essential (primary) hypertension; E78.2 Mixed hyperlipidemia
CPT/HCPCS: 78452; 93017

== ENCOUNTER → 2019-06-10 | Outpatient (CLI) | payer MEDICARE ==
[~2019-06-10] MED LIST changes: -CATHETER FLUSH 10 ML SYR IV PRN; -REGADENOSON 0.4 MG/5 ML SYR (LEXISCAN) IV ONE
--- NOTE | 2019-06-10 12:52 | Diagnostic Imaging Report ---
PROCEDURE: CT abdomen and pelvis without contrast. TECHNIQUE: Multiple contiguous axial images were obtained through the abdomen and pelvis without the use of intravenous contrast. Auto Exposure Controls were utilized during the CT exam to meet ALARA standards for radiation dose reduction. INDICATION: Prostate carcinoma with increasing PSA. COMPARISON: Correlation is made with prior CT from 04/11/2014. FINDINGS: The lung bases are clear. No discrete liver mass is detected. Gallbladder is unremarkable. No biliary ductal dilatation is seen. Pancreas and spleen are unremarkable. No adrenal mass is detected. Kidneys contain tiny calcifications which may represent nonobstructing calculi. There is no hydronephrosis. Aorta is heavily calcified but nonaneurysmal. There is a soft tissue density in the left periaortic location, suggestive of an enlarged lymph node. This measures 2.2 x 1.3 cm. This was not present on prior exam. A second lymph node inferior to this, anterior to the left iliopsoas muscle at the level of the aortic bifurcation, is enlarged measuring 1.5 x 1.6 cm. This is new as well. Just inferior to this, another lymph node is seen anterior to left psoas muscle measuring 1.8 x 1.4 cm. This is new. No mesenteric lymphadenopathy is identified. The small and large bowel loops appear to be normal in caliber. There is no obstruction. There is no free fluid or fluid collection. There are postop changes of prostatectomy. A nodule to the right of the rectum and adjacent to the surgical clip has decreased in size measuring 1.3 cm compared with 1.8 cm. No inguinal lymphadenopathy is seen. The bladder is unremarkable. Evaluation of the bony structures does show development of a lytic lesion involving the right aspect of the L4 vertebral body as well as the right aspect of the L5 vertebral body. There is a lytic lesion of the right L4 transverse process and pedicle as well. A lytic lesion of the right iliac bone is noted. IMPRESSION: 1. Development of enlarged lymph nodes in the left periaortic location of the central retroperitoneum as well as left common iliac location when compared with prior CT from 04/11/2014. This is concerning for developing metastatic disease. Developing osteolytic lesions in the lower lumbar spine and right iliac bone are also noted, concerning for metastatic disease. Dictated by: Dictated on workstation # [id number]
--- NOTE | 2019-06-10 15:26 | Diagnostic Imaging Report ---
INDICATION: Prostate carcinoma and elevated PSA. COMPARISON: No prior bone scans are available for comparison. TECHNIQUE: Patient was administered 26.2 mCi technetium-99m MDP intravenously and whole-body imaging was performed after three-hour delay. FINDINGS: Uptake of activity by the axial and appendicular skeleton is noted. There is uptake by the kidneys with excretion into urinary bladder. There is some mild uptake in the upper right midline chest in the region of the sternoclavicular junction. This is indeterminate. There is also uptake in the lower lumbar spine on the right side. This likely accounts for activity within the lytic lesion noted on recent CT. No other suspicious abnormalities are seen. IMPRESSION: Findings suggestive of a metastatic lesion in the lower lumbar spine on the right side correlating with the lytic lesion on CT. There is an indeterminate lesion at the sternoclavicular junction on the right side. Dictated by: Dictated on workstation # [id number]
== END ==
LOC: CARD 11:39
PROVIDERS: ATTEND Urology
DX: R97.21 Rising PSA following treatment for malignant neoplasm of prostate (principal); Z85.46 Personal history of malignant neoplasm of prostate; R59.0 Localized enlarged lymph nodes; M89.9 Disorder of bone, unspecified
CPT/HCPCS: 74176; 78306

== ENCOUNTER 2019-06-23 07:17 | Outpatient (CLI) | payer MEDICARE ==
[2019-06-23] VITALS (15 sets, daily range): BP systolic 121–161; BP diastolic 72–92
[~2019-06-23] VITALS: Ht 188 cm; Wt 97.0 kg
[2019-06-23] MEDS ORDERED: NS IV 1000 ML 1,000 ML IV STA (08:04)
[2019-06-23 08:06] LABS: BASOPHILS % (AUTO) 0 % (0-10); EOSINOPHILS # (AUTO) 0.1 10^3/uL (0.0-0.3); EOSINOPHILS % (AUTO) 3 % (0-10); HEMATOCRIT 38 % (40-54); HEMOGLOBIN 12.3 G/DL (13.3-17.7); LYMPHOCYTES # (AUTO) 0.7 X 10^3 (1.0-4.0); LYMPHOCYTES % (AUTO) 14 % (12-44); MEAN CORPUSCULAR HEMOGLOBIN 30 PG (25-34); MEAN CORPUSCULAR HGB CONC 33 G/DL (32-36); MEAN CORPUSCULAR VOLUME 93 FL (80-99); MEAN PLATELET VOLUME 9.8 FL (7.4-10.4); MONOCYTES # (AUTO) 0.7 X 10^3 (0.0-1.0); MONOCYTES % (AUTO) 12 % (0-12); NEUTROPHILS # (AUTO) 3.7 X 10^3 (1.8-7.8); NEUTROPHILS % (AUTO) 71 % (42-75); PLATELET COUNT 222 10^3/uL (130-400); RED CELL DISTRIBUTION WIDTH 14.4 % (10.0-14.5); WHITE BLOOD COUNT 5.3 10^3/uL (4.3-11.0)
[2019-06-23] MEDS ORDERED: LIDOCAINE 1% INJ 20 ML 20 ML VIAL INJ ONE (08:15)
[2019-06-23] MEDS ORDERED: fentaNYL INJECTION 100 MCG/2 ML AMP IVP ONE (08:15)
[2019-06-23] MEDS ORDERED: MIDAZOLAM 2 MG/2 ML (VERSED) VIAL IVP ONE (08:15)
[2019-06-23 08:20] LABS: INR 1.1 (0.8-1.4); PROTHROMBIN TIME PATIENT 14.3 SEC (12.2-14.7)
[2019-06-23 08:40] LABS: BAND NEUTROPHILS 3 %; BASOPHILS % (MANUAL) 2 %; EOSINOPHILS % (MANUAL) 2 %; LYMPHOCYTES % (MANUAL) 19 %; MONOCYTES % (MANUAL) 12 %; NEUTROPHILS % (MANUAL) 62 %; RBC MORPH NORMAL
[2019-06-23] MEDS ORDERED: LIDOCAINE 1% INJ 20 ML 20 ML VIAL ONE (08:42)
[2019-06-23] MEDS ORDERED: NS IV 1000 ML 1,000 ML ONE (08:42)
[2019-06-23] MEDS ORDERED: fentaNYL INJECTION 100 MCG/2 ML AMP ONE (08:42)
[2019-06-23] MEDS ORDERED: MIDAZOLAM 2 MG/2 ML (VERSED) VIAL ONE (08:42)
--- NOTE | 2019-06-23 09:36 | Pre-Op Note & Conscious Sedat ---
Pre-Operative Progress Note H&P Reviewed The H&P was reviewed, patient examined and no changes noted. Date H&P Reviewed: Jun 23, 2019 Time H&P Reviewed: 08:00 Pre-Op Diagnosis: prostate cancer Conscious Sedation Pre-Proced Time 08:00 ASA Score 2 For ASA 3 and 4: Consider anesthesia and medical clearance. Also, for patients with a history of failed moderate sedation consider anesthesia. Airway Lungs Heart ASA score ASA 1: a normal healthy patient ASA 2: a patient with a mild systemic disease (mid diabetes, controlled hypertension, obesity ASA 3: a patient with a severe systemic disease that limits activity (angina, COPD, prior Myocardial infarction) ASA 4: a patient with an incapacitating disease that is a constant threat to life (CHF, renal failure) ASA 5: a moribund patient not expected to survive 24 hrs. (ruptured aneurysm) ASA 6: a declared brain- patient whose organs are being harvested. For emergent operations, add the letter E after the classification Mallampati Classification Grade 2 Sedation Plan Analgesia, Amnesia, Plan communicated to team members, Discussed options with patient/fam, Discussed risks with patient/fam The patient is an appropriate candidate to undergo the planned procedure, sedation, and anesthesia. The patient immediately re-assessed prior to indication. ISHMAEL CAPONE MD Jun 23, 2019 09:36
--- NOTE | 2019-06-23 09:42 | Diagnostic Imaging Report ---
INDICATION: Lytic lesion of the right iliac bone. Patient presents for CT-guided biopsy. TECHNIQUE: All CT scans use one or more of the following dose optimizing techniques: automated exposure control, MA and/or KvP adjustment based on a patient size and exam type, or iterative reconstruction. The patient was brought to the CT suite placed on table in the prone position. Axial imaging through the pelvis was performed to evaluate appropriate entry site. The procedure was performed utilizing conscious sedation with radiology nursing and constant patient monitoring. Patient was given 100 mg fentanyl intravenously and 1 mg of Versed intravenously. Total procedure time 19 minutes. Low back is prepped and draped in usual sterile fashion. A small amount of 1% lidocaine was utilized for local anesthesia. Bone marrow biopsy needle was advanced and placed with its tip along the posterior cortex of the right iliac bone. Bone marrow drill was utilized to advance the needle through the cortex. Needle was placed with its tip adjacent to the lytic lesion in the right iliac bone. Core biopsy was then obtained. The biopsy needle was then reinserted and placed with its tip along the posterior cortex right iliac bone. Needle was advanced through the cortex utilizing bone marrow drill. Tip was placed adjacent to the lytic lesion for a 2nd time. A 2nd core biopsy was obtained. Needle was withdrawn and hemostasis was obtained. Patient tolerated the procedure well and left the department in stable condition. IMPRESSION: Successful CT-guided right iliac lytic bone lesion biopsy, utilizing conscious sedation. Pathology results are currently pending. Dictated by: Dictated on workstation # [id number]
[2019-06-23] MEDS ORDERED: HYDROcodone/APAP 5 MG/325 MG (LORTAB) TAB PO PRN (09:45)
== END 2019-06-23 12:10 | disposition home or self-care (01) ==
LOC: SDC 07:17
PROVIDERS: ATTEND Internal Medicine Hematology & Oncology
DX: C79.51 Secondary malignant neoplasm of bone (principal); C61 Malignant neoplasm of prostate; C77.2 Secondary and unspecified malignant neoplasm of intra-abdominal lymph nodes; I65.23 Occlusion and stenosis of bilateral carotid arteries; I25.10 Atherosclerotic heart disease of native coronary artery without angina pectoris; I10 Essential (primary) hypertension; E78.2 Mixed hyperlipidemia; I73.9 Peripheral vascular disease, unspecified; I48.0 Paroxysmal atrial fibrillation; D68.51 Activated protein C resistance; Z86.718 Personal history of other venous thrombosis and embolism; Z79.899 Other long term (current) drug therapy; Z79.01 Long term (current) use of anticoagulants; Z96.659 Presence of unspecified artificial knee joint; Z87.891 Personal history of nicotine dependence
CPT/HCPCS: 36415; 77012; 85007; 85027; 85610; 85730; 99156; 99157

== ENCOUNTER 2019-06-24 22:22 | Emergency (ER) | payer MEDICARE ==
[~2019-06-24] VITALS: Ht 187 cm; Wt 96.4 kg
[2019-06-24] MEDS ORDERED: BISACODYL 10 MG SUPP (DULCOLAX) ONE (23:09)
[2019-06-24] MEDS ORDERED: BISACODYL 10 MG SUPP (DULCOLAX) PR ONE (23:15)
--- NOTE | 2019-06-24 23:23 | ED GI ---
General Chief Complaint: Rect Problems Stated Complaint: PAIN IN RECTUM Nursing Triage Note: Pt ambulates to RM 6 with c/o rectal pain/cramping/burning x 4 hrs, pt states his last bowel movement was this am. Pt has Hx of prostate Ca. Sepsis Screen: No Definite Risk Source of Information: Patient Exam Limitations: No Limitations History of Present Illness Date Seen by Provider: Jun 24, 2019 Time Seen by Provider: 22:57 Initial Comments Here with report of rectal pain and cramping for the last 4 hours. States his last bowel movement he thinks was this morning. Denies blood in the stool or urine currently. Had biopsy due to concerns of prostate cancer with metastasis a few days ago. Currently off his Eliquis. States that he feels like he has to go to have a bowel movement but can't get anything out. He tried soap and the rectum to see if he can get it to move but states that it felt hard there and he did not produce a bowel movement. Denies hemorrhoids. Denies fever or chills. Denies nausea or vomiting. Denies other complaint currently. Timing/Duration: 4-6 Hours Severity/Quality: Moderate, Aching Location: Other (rectal) Radiation: No Radiation Activities at Onset: None Modifying Factors: Improves With Other (has sensation of need to have bowel movement but can't go) Associated Symptoms: No Back Pain, No Chest Pain, No Fever/Chills, No Nausea/Vomiting, No Weakness Allergies and Home Medications Allergies Coded Allergies: No Known Drug Allergies (Unverified , 04/23/16) Home Medications Acetaminophen 650 Mg Tablet.er, 650 MG PO Q6H PRN for PAIN-MILD, (Reported) Amiodarone HCl 200 Mg Tablet, 200 MG PO UD Take 2 tablets twice daily for 2 weeks then Take one tablet twice daily Prescribed by: MOE SIMON on 12/16/18 0828 Apixaban 5 Mg Tablet, 5 MG PO BID Prescribed by: MARIO RUBIO on 10/28/18 08 Atorvastatin Calcium 40 Mg Tablet, 40 MG PO DAILY, (Reported) Digoxin 250 Mcg Tablet, 0.25 MG PO DAILY Prescribed by: MARIO RUBIO on 10/28/18 0841 Diltiazem HCl 120 Mg Cap.er.24h, 120 MG PO DAILY Prescribed by: MOE SIMON on 10/28/18 1301 Metoprolol Succinate 100 Mg Tab.er.24h, 100 MG PO DAILY, (Reported) Tizanidine HCl 2 Mg Tablet, 2-4 MG PO Q6H PRN for MUSCLE SPASMS, (Reported) Tramadol HCl 50 Mg Tablet, 50 MG PO QID PRN for PAIN-MODERATE, (Reported) Triamterene/Hydrochlorothiazid 1 Each Capsule, 1 CAP PO DAILY, (Reported) Patient Home Medication List Home Medication List Reviewed: Yes Review of Systems Review of Systems Constitutional: see HPI; No chills, No fever Respiratory: Denies Cough, Denies Wheezing Cardiovascular: Denies Chest Pain; Edema Gastrointestinal: Denies Abdominal Pain; Constipated; Denies Rectal Bleeding; Other (rectal pain) Genitourinary: Burning (chronic), Hematuria (intermittent but not recently) Musculoskeletal: no symptoms reported Skin: no symptoms reported Past Lkhqnrc-Pevztr-Ssvver Hx Past Med/Social Hx: Reviewed Nursing Past Med/Soc Hx Patient Social History Alcohol Use: Denies Use Number of Drinks Today: AA Alcohol Beverage of Choice: Beer Recreational Drug Use: No Smoking Status: Never a Smoker Recent Foreign Travel: No Contact w/Someone Who Travel: No Recent Infectious Disease Expo: No Recent Hopitalizations: No Immunizations Up To Date Date of Pneumonia Vaccine: Jun 21, 2018 Date of Influenza Vaccine: Dec 31, 2015 Seasonal Allergies Seasonal Allergies: No Past Medical History Surgeries: Yes (RIGHT KNEE REPLACEMENT, CAROTID ARTERY) Prostatectomy Respiratory: No Cardiac: Yes Deep Vein Thrombosis, High Cholesterol Neurological: No Reproductive Disorders: No Sexually Transmitted Disease: No HIV/AIDS: No Genitourinary: No Gastrointestinal: No Musculoskeletal: Yes (back ) Arthritis Endocrine: No HEENT: No 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 13.4oz. [id number]; 27.00 BMI Method: General Appearance: WD/WN, no apparent distress HEENT: PERRL/EOMI, pharynx normal Neck: full range of motion, supple Respiratory: lungs clear, normal breath sounds Cardiovascular: no murmur, bradycardia Gastrointestinal: normal bowel sounds, non tender, soft, no organomegaly, no pulsatile mass Rectal: heme positive stool (trace); No mass; other (normal rectal some with no hemorrhoids. Moderate sized stool ball noted in the rectum. No obvious gross blood.) Extremities: non-tender, no calf tenderness, pedal edema (1-2+ bilateral lower extremities to mid tibia) Neurologic/Psychiatric: alert, oriented x 3 Skin: normal color, warm/dry Progress/Results/Core Measures Results/Orders Lab Results Laboratory Tests Test 06/24/19 23:50 Range/Units Urine Color YELLOW Urine Clarity CLEAR Urine pH 5.5 5-9 Urine Specific [place] >=1.030 1.016-1.022 Urine Protein NEGATIVE NEGATIVE Urine Glucose (UA) NEGATIVE NEGATIVE Urine Ketones NEGATIVE NEGATIVE Urine Nitrite NEGATIVE NEGATIVE Urine Bilirubin NEGATIVE NEGATIVE Urine Urobilinogen 1.0 < = 1.0 MG/DL Urine Leukocyte Esterase NEGATIVE NEGATIVE Urine RBC (Auto) NEGATIVE NEGATIVE Urine RBC RARE /HPF Urine WBC 5-10 H /HPF Urine Crystals PRESENT H /LPF Urine Amorphous Sediment FEW DIMPLE URATES H /LPF Urine Bacteria TRACE /HPF Urine Casts NONE /LPF Urine Mucus MODERATE H /LPF Urine Culture Indicated NO My Orders Orders - LEVAR LAM MD Bisacodyl Suppository (Dulcolax Supposit (06/24/19 23:15) Bisacodyl Suppository (Dulcolax Supposit (06/24/19 23:09) Ua Culture If Indicated (06/24/19 23:25) Medications Given in ED Current Medications Medications Dose Ordered Sig/Tony Route Start Time Stop Time Status Last Admin Dose Admin Bisacodyl 20 mg ONCE ONCE ND 06/24/19 23:15 06/24/19 23:16 DC 06/24/19 23:19 20 MG Vital Signs/I&O 06/24/19 22:30 Temp 36.6 Pulse 50 Resp 20 B/P (MAP) 127/64 (85) Pulse Ox 97 O2 Delivery Room Air Blood Pressure Mean: 85 Progress Progress Note : Progress Note Seen and evaluated. Rectal exam performed and stool ball noted. Dulcolax suppository 2 placed. We will also try a UA. Monitor patient. 0015: Patient had large bowel movement and is actually feeling better. Urine shows a few white cells and trace bacteria. We will send for culture but hold antibiotics pending culture results. I will send a copy of the chart to Dr. Rubio. Patient did have trace heme positive stool. He has had negative colonoscopy for the patient in the past but this can be rechecked through his primary physician. He is on Eliquis although is off of that currently. Patient instructed to follow-up for this as well. Patient instructed on constipation instructions. Also instructed and return precautions. Discharged home with return precautions. Patient verbalize understanding instructions and agreement with plan. Departure Impression Primary Impression: Constipation Qualified Codes: K59.00 - Constipation, unspecified Disposition: HOME, SELF-CARE Condition: Improved Departure-Patient Inst. Decision time for Depature: 00:24 Referrals: MARIO RUBIO MD (PCP/Family) Primary Care Physician Patient Instructions: Constipation, Adult (DC) Add. Discharge Instructions: All discharge instructions reviewed with patient and/or family. Voiced understanding. You had a trace amount of blood in her stool. This should be followed up with your Dr. Follow-up with both Dr. Rubio and Dr. Portillo for recheck and further evaluation. Return for worse pain, fever, vomiting, weakness, breathing problems or other concerns as needed. You need to drink an adequate amount of fluid. You may take MiraLAX or the generic one capful once or twice daily as needed to keep stools soft. You may increase or decrease the dose as needed to keep stools in normal range. You should increase fiber in your diet. Copy Copies To 1: MARIO RUBIO MD Copies To 2: RUBIN PORTILLO MD, TIMOTHY D MD Jun 24, 2019 23:23
--- NOTE | 2019-06-24 23:40 | NUR ---
Pt assisted to bedside commode with standby assist. Call light in reach, privacy provided. Pt denies any further needs at this time.
[2019-06-25] LABS: BILIRUBIN,URINE NEGATIVE (NEGATIVE); CLARITY,URINE CLEAR; COLOR,URINE YELLOW; GLUCOSE, URINE (UA) NEGATIVE (NEGATIVE); KETONES,URINE NEGATIVE (NEGATIVE); LEUKOCYTE ESTERASE ,URINE NEGATIVE (NEGATIVE); NITRITE,URINE NEGATIVE (NEGATIVE); PH,URINE 5.5 (5-9); PROTEIN,URINE NEGATIVE (NEGATIVE)
[2019-06-25 00:07] LABS: AMORPHOUS SEDIMENT,UR FEW AMOR URATES /LPF; BACTERIA,URINE TRACE /HPF; RBC,URINE RARE /HPF
[2019-06-25 00:33] VITALS: BP 123/83
== END 2019-06-25 00:40 | disposition home or self-care (01) ==
LOC: EDUNIT# 22:22 → ER 22:24
DX: K59.00 Constipation, unspecified (principal); E78.00 Pure hypercholesterolemia, unspecified; M19.91 Primary osteoarthritis, unspecified site; Z85.46 Personal history of malignant neoplasm of prostate; Z92.3 Personal history of irradiation; Z86.718 Personal history of other venous thrombosis and embolism; Z96.651 Presence of right artificial knee joint; Z79.899 Other long term (current) drug therapy; Z97.4 Presence of external hearing-aid
CPT/HCPCS: 81000; 87088; 99282

== ENCOUNTER 2019-08-12 12:56 | Outpatient (RCR) | payer MEDICARE ==
[2019-08-08 08:58] LABS: BASOPHILS % (AUTO) 1 % (0-10); EOSINOPHILS # (AUTO) 0.1 10^3/uL (0.0-0.3); EOSINOPHILS % (AUTO) 2 % (0-10); HEMATOCRIT 39 % (40-54); HEMOGLOBIN 12.9 G/DL (13.3-17.7); LYMPHOCYTES # (AUTO) 0.9 X 10^3 (1.0-4.0); LYMPHOCYTES % (AUTO) 14 % (12-44); MEAN CORPUSCULAR HEMOGLOBIN 31 PG (25-34); MEAN CORPUSCULAR HGB CONC 33 G/DL (32-36); MEAN CORPUSCULAR VOLUME 93 FL (80-99); MEAN PLATELET VOLUME 9.6 FL (7.4-10.4); MONOCYTES # (AUTO) 0.8 X 10^3 (0.0-1.0); MONOCYTES % (AUTO) 12 % (0-12); NEUTROPHILS # (AUTO) 4.3 X 10^3 (1.8-7.8); NEUTROPHILS % (AUTO) 71 % (42-75); PLATELET COUNT 234 10^3/uL (130-400); WHITE BLOOD COUNT 6.1 10^3/uL (4.3-11.0)
[2019-08-08 09:22] LABS: ALANINE AMINOTRANSFERASE 32 U/L (0-55); ALBUMIN 4.2 GM/DL (3.2-4.5); ALKALINE PHOSPHATASE 98 U/L (40-136); BILIRUBIN,TOTAL 0.8 MG/DL (0.1-1.0); BUN/CREATININE RATIO 15; CALCIUM 9.3 MG/DL (8.5-10.1); CARBON DIOXIDE 25 MMOL/L (21-32); CHLORIDE 104 MMOL/L (98-107); CREATININE SERUM 1.03 MG/DL (0.60-1.30); GFR ESTIMATED > 60; GLUCOSE 87 MG/DL (70-105); POTASSIUM 4.3 MMOL/L (3.6-5.0); SODIUM 140 MMOL/L (135-145); TOTAL PROTEIN 7.3 GM/DL (6.4-8.2)
[~2019-08-12 12:56] MED LIST changes: -TIZA2TAB4 PO; +TIZA2TAB7 PO
== END 2019-09-15 | disposition home or self-care (01) ==
LOC: ONC 12:56
PROVIDERS: ATTEND Internal Medicine Hematology & Oncology
DX: C61 Malignant neoplasm of prostate (principal); C77.2 Secondary and unspecified malignant neoplasm of intra-abdominal lymph nodes; I73.9 Peripheral vascular disease, unspecified; I65.29 Occlusion and stenosis of unspecified carotid artery; I25.10 Atherosclerotic heart disease of native coronary artery without angina pectoris; I10 Essential (primary) hypertension; E78.5 Hyperlipidemia, unspecified; I48.0 Paroxysmal atrial fibrillation; I82.409 Acute embolism and thrombosis of unspecified deep veins of unspecified lower extremity; Z90.79 Acquired absence of other genital organ(s); Z98.890 Other specified postprocedural states
CPT/HCPCS: 80053; 84153; 85025; 99214

== ENCOUNTER → 2019-09-19 | Outpatient (CLI) | payer MEDICARE ==
--- NOTE | 2019-09-19 11:01 | Diagnostic Imaging Report ---
PROCEDURE: MRI lumbar spine. TECHNIQUE: Multiplanar, multisequence MRI of the lumbar spine was performed without contrast. INDICATION: Back pain, history of prostate cancer. Exam compared with lumbar MRI 02/04/[address] of the abdomen and pelvis 06/10/2019, the CT having sagittal and coronal reconstructions. Since the comparison study, T2 hyper and 1 hypointense bubbly lucent lytic-like changes involve the right L5 hemivertebral body extending into its posterior and into its right pedicle, corresponding with spondylitic changes as seen on earlier CT. The process extends into the base of the right L5 transverse process. No intracanalicular extension of abnormal soft tissue and no resultant high-grade stenosis. This is new from the comparison MRI, given its development and the history suspicious for metastatic disease. A small lesion involving the top of the posterior aspect of the right iliac bone noted. Small new T2 hyperintense lesion in the L3 vertebral body inferiorly present the remaining levels unremarkable aside from chronic degenerative changes to the discs endplates and facets. No paravertebral soft tissue mass or fluid collection. There is normal dispersal of the nerves of the cauda equina. IMPRESSION: Marrow lesion right in the L5 vertebral body pedicle and transverse process with partial involvement of the top of the right innominate bone not substantially changed when correlated with the CT of 05/2019 but all new from the study of 2017, suspicious for multifocal bony metastases. Dictated by: Dictated on workstation # [id number]
== END ==
LOC: RAD 08:30
PROVIDERS: ATTEND Physician Assistant
DX: G95.9 Disease of spinal cord, unspecified (principal); M54.9 Dorsalgia, unspecified
CPT/HCPCS: 72148

== ENCOUNTER → 2019-09-29 | Outpatient (CLI) | payer MEDICARE ==
[~2019-09-29] MED LIST changes: +DIATRIZOATE 30% 300 ML (CYSTOGRAFIN) VIAL UR ONE
--- NOTE | 2019-09-29 14:15 | Diagnostic Imaging Report ---
INDICATION: Urethral stricture. Patient brought to the fluoroscopy suite placed on table in the supine position slightly rolled to the right. Cystografin contrast was injected into the penile urethra in retrograde fashion under fluoroscopic observation. Spot films were obtained. A total of 27 seconds of fluoroscopic time was utilized. Images demonstrate focal fairly short segment narrowing of the anterior urethra. This appears to be near the junction of the penile and bulbous urethra. Contrast does pass beyond the stricture. Contrast is seen within the posterior urethra with reflux into the urinary bladder. 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 Dictated by: Dictated on workstation # [id number]
== END ==
LOC: RAD 12:41
PROVIDERS: ATTEND Urology
DX: N35.919 Unspecified urethral stricture, male, unspecified site (principal)
CPT/HCPCS: 74450

== ENCOUNTER 2019-10-06 07:15 | Outpatient (RCR) | payer MEDICARE ==
[~2019-10-06] VITALS: Ht 187 cm; Wt 102.2 kg
[~2019-10-06 07:15] MED LIST changes: -DIATRIZOATE 30% 300 ML (CYSTOGRAFIN) VIAL UR ONE
== END 2019-10-06 10:38 | disposition home or self-care (01) ==
LOC: PREOP 07:15
PROVIDERS: ATTEND Urology
DX: Z01.818 Encounter for other preprocedural examination (principal); N35.919 Unspecified urethral stricture, male, unspecified site; R31.0 Gross hematuria; Z20.828 Contact with and (suspected) exposure to other viral communicable diseases
CPT/HCPCS: 87635

== ENCOUNTER 2019-10-11 06:17 | Day surgery (SDC) | payer MEDICARE ==
[~2019-10-11] VITALS: Ht 187 cm; Wt 102.2 kg
[2019-10-11] VITALS (9 sets, daily range): BP systolic 111–146; BP diastolic 63–84
[2019-10-11] MEDS ORDERED: cefTRIAXone FOR IV USE 1,000 MG in WATER (STERILE) FOR INJECTION 10 ML IV ONE (06:45)
[2019-10-11] MEDS ORDERED: ONDANSETRON 4 MG/2 ML (SDV) Z0FRAN ONE (06:54)
[2019-10-11] MEDS ORDERED: LIDOCAINE PF 2% 5 ML (XYLOCAINE) VIAL ONE (06:54)
[2019-10-11] MEDS ORDERED: fentaNYL INJECTION 100 MCG/2 ML AMP ONE (06:54)
[2019-10-11] MEDS ORDERED: SEVOFLURANE (ULTANE) 15 ML INHAL SOLN ONE ×3 (06:54→08:15)
[2019-10-11] MEDS ORDERED: proPOfol 200 MG/20 ML (DIPRIVAN) VIAL IV ONE (06:54)
--- NOTE | 2019-10-11 07:05 | Progress Note-Pre Operative ---
Pre-Operative Progress Note H&P Reviewed The H&P was reviewed, patient examined and no changes noted. Date Seen by Provider: Oct 11, 2019 Time Seen by Provider: 07:05 Date H&P Reviewed: Oct 11, 2019 Time H&P Reviewed: 07:05 Pre-Operative Diagnosis: URETHRAL STRICTURE RUBIN PORTILLO MD Oct 11, 2019 07:05
--- NOTE | 2019-10-11 07:06 | Progress Note-Post Operative ---
Post-Operative Progess Note Surgeon (s)/Railroad Car Inspector (s) Surgeon RUBIN PORTILLO MD Railroad Car Inspector: NONE Pre-Operative Diagnosis URETHRAL STRICTURE Post-Operative Diagnosis SAME Procedure & Operative Findings Date of Procedure 10/11/19 Procedure Performed/Findings F&F UD AND CYSTOSCOPY Anesthesia Type GENERAL Estimated Blood Loss Estimated blood loss (mL): NEGLIGIBLE Specimens/Packing Specimens Removed NONE Packing: NONE RUBIN PORTILLO MD Oct 11, 2019 07:06
--- NOTE | 2019-10-11 07:08 | Discharge Inst-Urology ---
Discharge Inst-Urology Reconcile Patient Problems Problems Reviewed?: Yes Final Diagnosis URETHRAL STRICTURE Patient Instructions/Follow Up Plan/Assessment/Instructions Discharge with [place] and leg bag day time and large bag night time with instructions Come to office 9 am to change [place] Stay off Eliquis Please make appointment to been seen in office in 2 weeks for cystoscopy Increase oral fluids for 48 hours and then as needed. Diet and Activity as tolerated. If questions or concerns contact your physician Or seek help at emergency department. RUBIN PORTILLO MD Oct 11, 2019 07:08
[2019-10-11] MEDS: LACTATED RINGERS 1,000 ML IV PRN ×2 (07:45→08:45)
[2019-10-11] MEDS ORDERED: PHEN-640 PO (07:52)
[2019-10-11] MEDS ORDERED: SULF1TAB35 PO (07:52)
[2019-10-11] MEDS ORDERED: ATROPINE INJ 0.4 MG/ML SDV ONE (08:05)
[2019-10-11] MEDS ORDERED: DEXAMETHASONE 10 MG/ML (DECADRON) 1 ML VIAL ONE (08:15)
[2019-10-11] MEDS ORDERED: ONDANSETRON 4 MG/2 ML (SDV) Z0FRAN IVP PRN (09:15)
[2019-10-11] MEDS ORDERED: morphine INJ 10 MG/ML 1ML (SYR OR VIAL) IVP ONE (09:15)
--- NOTE | 2019-10-11 10:09 | OPERATIVE REPORT ---
DATE OF SERVICE: 10/11/2019 PREOPERATIVE DIAGNOSIS: Urethral stricture. POSTOPERATIVE DIAGNOSIS: Urethral stricture. OPERATION PERFORMED: Cystoscopy with filiform and follower dilatation of stricture and insertion of catheter. SURGEON: Barrett Portillo MD ANESTHESIA: General. COMPLICATIONS: None. DESCRIPTION OF PROCEDURE: Under satisfactory general anesthesia, the patient in lithotomy position, genitalia were prepped and draped in the usual sterile fashion. A 23-Malian cystoscope was introduced in the bladder. Again, visualized a pinpoint stricture anterior urethra. I went ahead and passed a 6-Malian filiform through it under vision, followed by an 8-Malian follower and removed the cystoscope, dilated the stricture to #22-Malian, then inserted a 18-Malian [place] catheter over a [place]cill guide into the bladder, removed the guide and the filiform, inflated the balloon to 10 mL, connected the catheter to leg bag the return of which was pink. Estimated blood loss was less than 50 mL, none of which was replaced. The patient tolerated the procedure and anesthesia well and was sent to recovery room in stable condition. PLAN: We will have him come in the office for soft dilatation, hopefully up to at least a 22-Malian and then we will scope him again at the office in 2 weeks to check on the stricture as well as the bladder for his history of gross hematuria since I could not scope him totally today. The stricture would not admit the rigid scope, even 17, and I did not want to take any chances. Job ID: [id number] DocumentID: [id number] Dictated Date: 10/11/2019 08:44:05 Business Continuity Director Date: 10/11/2019 10:08:25 Dictated By: BARRETT PORTILLO MD [facility]
--- NOTE | 2019-10-11 10:37 | Anesthesia-General Post-Op ---
General Patient Condition Mental Status/LOC: Same as Preop Cardiovascular: Satisfactory Nausea/Vomiting: Absent Respiratory: Satisfactory Pain: Controlled Complications: Absent Post Op Complications Complications None Follow Up Care/Instructions Patient Instructions None needed. Anesthesia/Patient Condition Patient Condition Patient is doing well, no complaints, stable vital signs, no apparent adverse anesthesia problems. MARIELLA MIRELES DO Oct 11, 2019 10:37
== END 2019-10-11 10:35 | disposition home or self-care (01) ==
LOC: SDC 06:17
PROVIDERS: ATTEND Urology
DX: N35.914 Unspecified anterior urethral stricture, male (principal); I10 Essential (primary) hypertension; I25.10 Atherosclerotic heart disease of native coronary artery without angina pectoris; I73.9 Peripheral vascular disease, unspecified; M19.90 Unspecified osteoarthritis, unspecified site; Z86.718 Personal history of other venous thrombosis and embolism; R31.0 Gross hematuria; I48.91 Unspecified atrial fibrillation; E78.5 Hyperlipidemia, unspecified; M06.9 Rheumatoid arthritis, unspecified; Z11.2 Encounter for screening for other bacterial diseases; Z79.01 Long term (current) use of anticoagulants; Z79.899 Other long term (current) drug therapy
CPT/HCPCS: 87081

== ENCOUNTER 2019-11-11 08:38 | Outpatient (RCR) | payer MEDICARE ==
[2019-10-12 10:05] LABS: BASOPHILS % (AUTO) 0 % (0-10); EOSINOPHILS % (AUTO) 0 % (0-10); HEMATOCRIT 38 % (40-54); HEMOGLOBIN 12.7 G/DL (13.3-17.7); LYMPHOCYTES # (AUTO) 0.8 X 10^3 (1.0-4.0); LYMPHOCYTES % (AUTO) 4 % (12-44); MEAN CORPUSCULAR HEMOGLOBIN 31 PG (25-34); MEAN CORPUSCULAR HGB CONC 33 G/DL (32-36); MEAN CORPUSCULAR VOLUME 94 FL (80-99); MEAN PLATELET VOLUME 9.7 FL (7.4-10.4); MONOCYTES # (AUTO) 1.7 X 10^3 (0.0-1.0); MONOCYTES % (AUTO) 8 % (0-12); NEUTROPHILS # (AUTO) 17.9 X 10^3 (1.8-7.8); NEUTROPHILS % (AUTO) 88 % (42-75); PLATELET COUNT 230 10^3/uL (130-400); WHITE BLOOD COUNT 20.4 10^3/uL (4.3-11.0)
[2019-10-12 10:25] LABS: ALANINE AMINOTRANSFERASE 38 U/L (0-55); ALKALINE PHOSPHATASE 89 U/L (40-136); BILIRUBIN,TOTAL 0.7 MG/DL (0.1-1.0); BUN/CREATININE RATIO 21; CALCIUM 9.5 MG/DL (8.5-10.1); CARBON DIOXIDE 23 MMOL/L (21-32); CHLORIDE 106 MMOL/L (98-107); CREATININE SERUM 1.12 MG/DL (0.60-1.30); GFR ESTIMATED > 60; GLUCOSE 93 MG/DL (70-105); POTASSIUM 4.4 MMOL/L (3.6-5.0); SODIUM 139 MMOL/L (135-145); TOTAL PROTEIN 6.9 GM/DL (6.4-8.2)
[~2019-11-11 08:38] MED LIST changes: +PHEN-640 PO; +SULF1TAB35 PO
[2019-11-11] MEDS ORDERED: ZOLEDRONIC ACID (CANCER CTR) 4 MG in NS (IVPB) CANCER CENTER 100 ML IV NR (09:21)
== END 2019-12-12 15:15 | disposition home or self-care (01) ==
LOC: ONC 08:38
PROVIDERS: ATTEND Internal Medicine Hematology & Oncology
DX: C61 Malignant neoplasm of prostate (principal); C77.2 Secondary and unspecified malignant neoplasm of intra-abdominal lymph nodes; I73.9 Peripheral vascular disease, unspecified; I65.29 Occlusion and stenosis of unspecified carotid artery; I25.10 Atherosclerotic heart disease of native coronary artery without angina pectoris; E78.2 Mixed hyperlipidemia; I10 Essential (primary) hypertension; I48.0 Paroxysmal atrial fibrillation; I82.409 Acute embolism and thrombosis of unspecified deep veins of unspecified lower extremity; Z90.79 Acquired absence of other genital organ(s); Z98.890 Other specified postprocedural states
CPT/HCPCS: 80053; 84153; 85025; 96365; 99213

== ENCOUNTER 2020-01-10 10:45 | Inpatient (IN) | payer MEDICARE ==
[~2020-01-10] VITALS: Ht 185 cm; Wt 101.0 kg
--- NOTE | 2020-01-10 11:00 | ED Cardiac General ---
History of Present Illness General Stated Complaint: CP Source: patient Exam Limitations: no limitations History of Present Illness Date Seen by Provider: Jan 10, 2020 Time Seen by Provider: 10:48 Initial Comments Patient is a 79-year-old male who presents to the emergency room today with a chief complaint of shortness of breath with exertion, feeling lightheaded and dizzy with exertion. Patient states that he takes metoprolol with a history of A. fib. He is chronically anticoagulated on Eliquis as well. Patient ran out of his metoprolol a few days ago and refilled it yesterday and started taking it again. Patient denies any alterations or changes in his dosing. Patient states that when he walks he has pain in his bilateral shoulders with exertion. He states this is relieved when he is at rest. He does not have a history of coronary artery disease however has a history of a previous carotid endarterectomy. Patient denies any recent fevers, chills, productive cough or other illness. He denies any problems with bowel or bladder. Arrives to the emergency room alert oriented in no acute distress. All other review of systems reviewed and negative except as stated above. Allergies and Home Medications Allergies Coded Allergies: No Known Drug Allergies (Unverified , 10/05/19) Home Medications Amiodarone HCl 200 Mg Tablet, 200 MG PO BID, (Reported) Apixaban 5 Mg Tablet, 5 MG PO BID, (Reported) Atorvastatin Calcium 40 Mg Tablet, 40 MG PO DAILY, (Reported) Diltiazem HCl 120 Mg Cap.er.24h, 125 MG PO DAILY, (Reported) Metoprolol Succinate 100 Mg Tab.er.24h, 100 MG PO DAILY, (Reported) Tizanidine HCl 2 Mg Tablet, 2-4 MG PO Q6H PRN for MUSCLE SPASMS, (Reported) Triamterene/Hydrochlorothiazid 1 Each Capsule, 1 CAP PO DAILY PRN for SWELLING, (Reported) Patient Home Medication List Home Medication List Reviewed: Yes Review of Systems Review of Systems Constitutional: dizziness EENTM: No Symptoms Reported Respiratory: Shortness of Air Cardiovascular: No Symptoms Reported Gastrointestinal: No Symptoms Reported Genitourinary: No Symptoms Reported Musculoskeletal: muscle cramps (bilateral shoulders) Past Luqrxrz-Iuuvej-Xftvby Hx Patient Social History Alcohol Beverage of Choice: Beer 2nd Hand Smoke Exposure: No Recent Foreign Travel: No Contact w/Someone Who Travel: No Recent Hopitalizations: No Immunizations Up To Date Date of Pneumonia Vaccine: Jun 21, 2018 Date of Influenza Vaccine: Dec 27, 2018 Seasonal Allergies Seasonal Allergies: No Past Medical History Surgeries: Yes (RIGHT KNEE REPLACEMENT, CAROTID ARTERY, ) Prostatectomy Respiratory: No Currently Using CPAP: No Currently Using BIPAP: No Cardiac: Yes (HX AFIB) Atrial Fibrillation, Deep Vein Thrombosis, High Cholesterol, Hypertension Neurological: No Reproductive Disorders: No Sexually Transmitted Disease: No HIV/AIDS: No Genitourinary: Yes Prostate Problems Gastrointestinal: No Musculoskeletal: Yes (back ) Arthritis Endocrine: No HEENT: Yes (GLASSES) Loss of Vision: Denies Hearing Impairment: Hard of Hearing, Bilateral Hearing Aide Cancer: Yes Prostate Did You Recieve Any Treatments: Yes What Type of Treatment Did You: Radiation Psychosocial: No Integumentary: No Blood Disorders: No Adverse Reaction/Blood Tranf: No (N/A) Family Medical History Cardiomyopathy 19 FATHER Diabetes mellitus paternal grandmother maternal grandmother FH: breast cancer 19 MOTHER Physical Exam Vital Signs Vital Signs - First Documented 01/10/20 10:45 Temp 36.3 Pulse 36 Resp 17 B/P (MAP) 102/62 (75) Pulse Ox 97 Capillary Refill : Height, Weight, BMI Height: 6'2.00" Weight: 213lbs. 13.4oz. 96.470222rt; 29.22 BMI Method: General Appearance: No Apparent Distress, WD/WN HEENT: PERRL/EOMI Neck: Full Range of Motion Respiratory: Chest Non Tender, Lungs Clear, Normal Breath Sounds, No Accessory Muscle Use, No Respiratory Distress Cardiovascular: Regular Rate, Rhythm, Normal Peripheral Pulses, Bradycardia Gastrointestinal: Normal Bowel Sounds, Non Tender, Soft Extremity: Normal Capillary Refill, Pedal Edema Neurologic/Psychiatric: Alert, Oriented x3, No Motor/Sensory Deficits, Normal Mood/Affect Skin: Normal Color, Warm/Dry Progress/Results/Core Measures Results/Orders Lab Results Laboratory Tests Test 01/10/20 10:50 Range/Units White Blood Count 7.4 4.3-11.0 10^3/uL Red Blood Count 3.58 L 4.30-5.52 10^6/uL Hemoglobin 11.0 L 13.3-17.7 g/dL Hematocrit 35 L 40-54 % Mean Corpuscular Volume 98 80-99 fL Mean Corpuscular Hemoglobin 31 25-34 pg Mean Corpuscular Hemoglobin Concent 32 32-36 g/dL Red Cell Distribution Width 14.2 10.0-14.5 % Platelet Count 203 130-400 10^3/uL Mean Platelet Volume 10.0 9.0-12.2 fL Immature Granulocyte % (Auto) 1 % Neutrophils (%) (Auto) 78 H 42-75 % Lymphocytes (%) (Auto) 11 L 12-44 % Monocytes (%) (Auto) 9 0-12 % Eosinophils (%) (Auto) 1 0-10 % Basophils (%) (Auto) 0 0-10 % Neutrophils # (Auto) 5.8 1.8-7.8 10^3/uL Lymphocytes # (Auto) 0.8 L 1.0-4.0 10^3/uL Monocytes # (Auto) 0.6 0.0-1.0 10^3/uL Eosinophils # (Auto) 0.1 0.0-0.3 10^3/uL Basophils # (Auto) 0.0 0.0-0.1 10^3/uL Immature Granulocyte # (Auto) 0.1 0.0-0.1 10^3/uL Sodium Level 138 135-145 MMOL/L Potassium Level 4.4 3.6-5.0 MMOL/L Chloride Level 105 98-107 MMOL/L Carbon Dioxide Level 24 21-32 MMOL/L Anion Gap 9 5-14 MMOL/L Blood Urea Nitrogen 24 H 7-18 MG/DL Creatinine 1.12 0.60-1.30 MG/DL Estimat Glomerular Filtration Rate > 60 BUN/Creatinine Ratio 21 Glucose Level 123 H 70-105 MG/DL Calcium Level 8.4 L 8.5-10.1 MG/DL Creatine Kinase MB 2.4 <6.6 NG/ML Troponin I 0.038 H <0.028 NG/ML Thyroid Stimulating Hormone (TSH) 2.49 0.35-4.94 UIU/ML My Orders Orders - TODD HYDE MD Cbc With Automated Diff (01/10/20 10:54) Basic Metabolic Panel (01/10/20 10:54) Chest 1 View, Ap/Pa Only (01/10/20 10:54) Ed Iv/Invasive Line Start (01/10/20 10:54) Oxygen-Administer 07,19 (01/10/20 10:54) Continuous Ekg Monitoring (01/10/20 10:54) Ekg Tracing (01/10/20 10:54) Troponin I (01/10/20 11:37) Creatine Kinase Mb (01/10/20 11:37) Vital Signs/I&O 01/10/20 10:45 Temp 36.3 Pulse 36 Resp 17 B/P (MAP) 102/62 (75) Pulse Ox 97 Progress Progress Note : Time: 11:46 (I spoke with Dr. Jacobs regarding this patient he asked me to finally call Dr. Hamm for admission.) Progress Note I spoke with Dr. Macedo regarding this patient he kindly asks to contact Dr. Fan who is also on-call for cardiology for admission 1209 will admit to Primary Care with consult to cardiology Initial ECG Rhythm: S.Albaro Initial ECG Impression: Sinus Bradycardia, 3rd Degree AV Block (38bpm) Diagnostic Imaging Diagonstic Imaging: Xray Plain Films/CT/US/NM/MRI: chest Comments [facility], [place] NAME: ARIEL BARAKAT [facility] REC#: [id number] PT STATUS: REG ER : 1940 PHYSICIAN: TODD HYDE MD ADMIT DATE: 01/10/20/ER Signed Date of Exam:01/10/20 CHEST 1 VIEW, AP/PA ONLY HISTORY: Shortness of breath and bradycardia. COMPARISON: 12/15/2018 TECHNIQUE: Frontal view of the chest. FINDINGS: Lung volumes are normal. There are chronic interstitial markings in the lung bases. No new consolidation is seen. There is no pleural effusion or pneumothorax. The cardiac silhouette is stable in size. There is an old left-sided rib fracture. There are degenerative changes in the shoulders and spine. IMPRESSION: 1. Stable chronic basilar interstitial markings with no acute pulmonary abnormality seen. Dictated by: Dictated on workstation # [id number] Dict: 01/10/20 1111 Trans: 01/10/20 1133 [id number] Interpreted by: ANGLELA CHESTER MD Electronically signed by: ANGELLA CHESTER MD 01/10/20 1133 Critical Care Note Critical Care Start Time: 10:48 Stop Time: 11:45 Total Time (minutes) Critical care time 45 minutes spent in the evaluation and management of this patient with symptomatic bradycardia, review of the medical records, discussion with the nuclear radiologist on-call as well as the patient's personal nuclear radiologist, discussion with hospitalist for admission Departure Communication (Admissions) Time/Spoke to Admitting Phy: 12:[address] Arnold who accepts the patient for admission Time/Spoke to Consulting Phy: 12:[address] Macedo as well as Dr. Fan who accepts the patient in consultation Impression Primary Impression: Symptomatic bradycardia Disposition: ADMITTED INPATIENT Condition: Stable Admissions Decision to Admit Reason: Admit from ER (General) Decision to Admit/Date: Jan 10, 2020 Time/Decision to Admit Time: 12:09 Departure-Patient Inst. Referrals: MARIO ESTEVEZ MD (PCP/Family) Primary Care Physician TODD HYDE MD Jan 10, 2020 11:00
[2020-01-10 11:01] LABS: BASOPHILS % (AUTO) 0 % (0-10); EOSINOPHILS # (AUTO) 0.1 10^3/uL (0.0-0.3); EOSINOPHILS % (AUTO) 1 % (0-10); HEMATOCRIT 35 % (40-54); LYMPHOCYTES # (AUTO) 0.8 10^3/uL (1.0-4.0); LYMPHOCYTES % (AUTO) 11 % (12-44); MEAN CORPUSCULAR HEMOGLOBIN 31 pg (25-34); MEAN CORPUSCULAR HGB CONC 32 g/dL (32-36); MEAN CORPUSCULAR VOLUME 98 fL (80-99); MONOCYTES # (AUTO) 0.6 10^3/uL (0.0-1.0); MONOCYTES % (AUTO) 9 % (0-12); NEUTROPHILS # (AUTO) 5.8 10^3/uL (1.8-7.8); NEUTROPHILS % (AUTO) 78 % (42-75); PLATELET COUNT 203 10^3/uL (130-400); WHITE BLOOD COUNT 7.4 10^3/uL (4.3-11.0)
[2020-01-10 11:12] LABS: CHLORIDE 105 MMOL/L (98-107); POTASSIUM 4.4 MMOL/L (3.6-5.0); SODIUM 138 MMOL/L (135-145)
[2020-01-10 11:13] LABS: CALCIUM 8.4 MG/DL (8.5-10.1); GLUCOSE 123 MG/DL (70-105)
--- NOTE | 2020-01-10 11:14 | Diagnostic Imaging Report ---
HISTORY: Shortness of breath and bradycardia. COMPARISON: 12/15/2018 TECHNIQUE: Frontal view of the chest. FINDINGS: Lung volumes are normal. There are chronic interstitial markings in the lung bases. No new consolidation is seen. There is no pleural effusion or pneumothorax. The cardiac silhouette is stable in size. There is an old left-sided rib fracture. There are degenerative changes in the shoulders and spine. IMPRESSION: 1. Stable chronic basilar interstitial markings with no acute pulmonary abnormality seen. Dictated by: Dictated on workstation # [id number]
[2020-01-10 11:15] LABS: CARBON DIOXIDE 24 MMOL/L (21-32)
[2020-01-10 11:17] LABS: CREATININE SERUM 1.12 MG/DL (0.60-1.30); GFR ESTIMATED > 60
[2020-01-10 11:18] LABS: BUN/CREATININE RATIO 21
[2020-01-10 11:58] LABS: CREATINE KINASE MB 2.4 NG/ML (<6.6)
--- NOTE | 2020-01-10 12:20 | Consultation-Cardiology ---
HPI-Cardiology Cardiology Consultation: Date of Consultation 01/10/20 Time Seen by a Provider: 13:30 Date of Admission 01-10-2020 Attending Physician Admitting Physician Mario Rubio MD Consulting Physician Primary Towboat Pilot: Rachel Rajan MD HPI: Chief Complaint: Symptomatic sinus bradycardia Mr. Sosa is a 79 year old male admitted to ICU 2 from the ED with symptomatic sinus bradycardia. He reports he takes Metoprolol, Cardizem CD and Amiodarone at home d/t a h/o PAF for which he had cardioversion last yr by Dr. Jacobs. He states he had been without his Metoprolol for a few days, but he had previously only been taking it every other day, he was able to get it refilled a couple days ago and started taking it again. His last dose was last night. He states he walked his dog this morning, but did feel SOB, which has been persistent for a couple days, but progressively getting worse. He does not report any CP. He reports he has been having back pain and going to the chiropractor in [place]. His took him today and dropped him off at the door. He reports feeling weak, dizzy, SOB, and very off balance. He denies any syncope or near syncope. He states after his appt he went to [facility] and was again very weak, SOB, dizzy, and was having discomfort radiating across his shoulders and into his arms bilat. His symptoms would improve with rest. He continued to feel unwell and went to Dr. Jacobs's office where he was directed to the ED. He currently reports no discomfort or SOB while lying in the bed. He has chronic mild bilat LE swelling which is least in the morning and worse at the end of the day. No c/o n/v/d. No c/o fever or chills. Review of Systems-Cardiology Review of Systems Constitutional: As described under HPI Eyes: No vision change Ears/Nose/Throat: No epistaxis Respiratory: As described under HPI Cardiovascular: As described under HPI Gastrointestinal: No diarrhea, No vomiting Genitourinary: No dysuria, No hematuria Musculoskeletal: As describe under HPI Skin: No rash on exposed areas, No ulcerations on exposed areas Psychiatric/Neurological: As described under HPI Hematologic: no symptoms reported KAP-Afdkgn-Xbjfqk Hx Patient Social History Alcohol Use: Occasionally Uses Recreational Drug Use: No Smoking Status: Never a Smoker 2nd Hand Smoke Exposure: No Recent Foreign Travel: No Recent Infectious Disease Expo: No Hospitalization with Isolation: Denies Immunizations Up To Date Date of Pneumonia Vaccine: Jun 21, 2018 Date of Influenza Vaccine: Dec 27, 2018 Past Medical History PMH As described under Assessment. Family Medical History Family Medical History: History of father having cardiomyopathy. Family History: 19 MOTHER FH: breast cancer 19 FATHER Cardiomyopathy paternal grandmother Diabetes mellitus maternal grandmother Diabetes mellitus Allergies and Home Medications Allergies Coded Allergies: No Known Drug Allergies (Unverified , 10/05/19) Home Medications Amiodarone HCl 200 Mg Tablet, 200 MG PO UD Take 2 tablets twice daily for 2 weeks then Take one tablet twice daily Prescribed by: MOE JACOBS on 12/16/18 0828 Atorvastatin Calcium 40 Mg Tablet, 40 MG PO DAILY, (Reported) Digoxin 250 Mcg Tablet, 0.25 MG PO DAILY Prescribed by: MARIO RUBIO on 10/28/18 0841 Diltiazem HCl 120 Mg Cap.er.24h, 120 MG PO DAILY Prescribed by: MOE JACOBS on 10/28/18 1301 Metoprolol Succinate 100 Mg Tab.er.24h, 100 MG PO DAILY, (Reported) Phenazopyridine HCl 200 Mg Tablet, 1 TAB PO BID Prescribed by: JONAS RHOADES on 10/11/19 0752 Sulfamethoxazole/Trimethoprim 1 Each Tablet, 1 EACH PO BID Prescribed by: JONAS RHOADES on 10/11/19 0752 Triamterene/Hydrochlorothiazid 1 Each Capsule, 1 CAP PO DAILY PRN for SWELLING, (Reported) Physical Exam-Cardiology Physical Exam Vital Signs/I&O 01/10/20 01/10/20 10:45 13:13 Temp 36.3 Pulse 36 36 Resp 17 17 B/P (MAP) 102/62 (75) 136/78 (75) Pulse Ox 97 99 Capillary Refill : Less Than 3 Seconds Constitutional: AAO x 3, well-developed, well-nourished HEENT: PERRL, hearing is well preserved Neck: No carotid bruit; carotid pulses are 2 + bilaterally Respiratory: No accessory muscle use, No respiratory distress; chest expansion is symmetric, chest is bilaterally symmetric, lungs clear to auscultation Cardiovascular: No JVD; bradycardia, S1 and S2 Gastrointestinal: No tender; soft, audible bowel sounds Extremities: other (mild bilat LE swelling) Neurologic/Psychiatric: grossly intact (moves all extremities) Skin: No rash on exposed areas, No ulcerations on exposed areas Data Review Labs Laboratory Tests 01/10/20 10:50: White Blood Count 7.4, Red Blood Count 3.58L, Hemoglobin 11.0L, Hematocrit 35L, Mean Corpuscular Volume 98, Mean Corpuscular Hemoglobin 31, Mean Corpuscular H emoglobin Concent 32, Red Cell Distribution Width 14.2, Platelet Count 203, Mean Platelet Volume 10.0, Immature Granulocyte % (Auto) 1, Neutrophils (%) (Auto) 78H, Lymphocytes (%) (Auto) 11L, Monocytes (%) (Auto) 9, Eosinophils (%) (Auto) 1, Basophils (%) (Auto) 0, Neutrophils # (Auto) 5.8, Lymphocytes # (Auto) 0.8L, Monocytes # (Auto) 0.6, Eosinophils # (Auto) 0.1, Basophils # (Auto) 0.0, Immature Granulocyte # (Auto) 0.1, Sodium Level 138, Potassium Level 4.4, Chloride Level 105, Carbon Dioxide Level 24, Anion Gap 9, Blood Urea Nitrogen 24H, Creatinine 1.12, Estimat Glomerular Filtration Rate > 60, BUN/Creatinine Ratio 21, Glucose Level 123H, Calcium Level 8.4L, Creatine Kinase MB 2.4, Troponin I 0.038H Radiology NAME: ARIEL SOSA [facility] REC#: [id number] PT STATUS: REG ER : 1940 PHYSICIAN: TODD HYDE MD ADMIT DATE: 01/10/20/ER Signed Date of Exam:01/10/20 CHEST 1 VIEW, AP/PA ONLY HISTORY: Shortness of breath and bradycardia. COMPARISON: 12/15/2018 TECHNIQUE: Frontal view of the chest. FINDINGS: Lung volumes are normal. There are chronic interstitial markings in the lung bases. No new consolidation is seen. There is no pleural effusion or pneumothorax. The cardiac silhouette is stable in size. There is an old left-sided rib fracture. There are degenerative changes in the shoulders and spine. IMPRESSION: 1. Stable chronic basilar interstitial markings with no acute pulmonary abnormality seen. Dictated by: Dictated on workstation # [id number] Dict: 01/10/20 1111 Trans: 01/10/20 1133 [id number] Interpreted by: ANGELLA CHESTER MD Electronically signed by: ANGELLA CHESTER MD 01/10/20 1133 ECG Impression ECG Initial ECG Rhythm: S.Albaro A/P-Cardiology Assessment/Admission Diagnosis Sinus bradycardia with 3rd degree AV block Coronary artery disease 40-50% mid right nonobstructive disease per cardiac cath of Dec 10, [address] Jacobs Stress test done May [address] Jacobs revealed no ischemia or infarct Echocardiogram of Dec 16, [address] Jacobs showed dilated LA or LA appendage; no clot or thrombus; LVEF 60%; mild MR H/O Paroxysmal atrial fibrillation with rapid ventricular response, was hospitalized in October 2018 with atrial fibrillation and rapid ventricular response. Had a MIRACLE showed dilated left atrium and left atrial appendage with echogenic density suggestive of thrombus normal left ventricular function. Repeat MIRACLE on December 16, 2018 showed resolution of the thrombus, underwent electrical cardioversion which was successful in terminating atrial fibrillation return to atrial fibrillation, loaded with amiodarone then had another cardioversion and was successful in resolving atrial fibrillation. Had been maintained on amiodarone, Toprol and Cardizem. OAC with Eliquis 5mg BID History of multiple DVT Status post hematuria, secondary to kidney stone Carotid stenosis, history of R CEA [facility] by [facility] in [place], [place] Normal [place], aorto screen was normal done by [facility] in 2017 Prostate cancer with recurrence, followed by Dr. 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 Discussion and Recomendations Symptomatic sinus bradycardia with 3rd degree AV block - hold all rate lowering agents May need to consider implant of PPM Continue OAC with Eliquis d/t h/o PAF Keep on tele Monitor lab - replace electrolytes as indicated We would like to thank medical services for this consult Further recs will be based on his hospital course TIFFANY BARAKAT Jan 10, 2020 12:20
--- NOTE | 2020-01-10 13:11 | History & Physical-Hospitalist ---
YUEJAZMYNLISET, 01/10/20 1311: History of Present Illness HPI/Chief Complaint Mr. Sosa is a 79-year-old male who presented to the ED for increasing shortness of breath over the past 2-3 days. He noticed that he had increasing shortness of breath when climbing steps or walking to his car. He went to the chiropractor today in [place] and noticed that he had shortness of breath again along with being lightheaded, dizzy, and losing his balance. He was helped to the office and the treatment was completed. Then, he and his went to [facility] and he had the same symptoms there but had increasing muscle aches in his shoulders. He left [facility] and went directly to Dr. Jacobs's office and was sent to the ED. Source: patient Exam Limitations: no limitations Date Seen 01/10/20 Time Seen by a Provider: 13:00 Attending Physician PCP Martin Rubio MD Referring Physician Date of Admission Home Medications & Allergies Home Medications Reviewed patient Home Medication Reconciliation performed by pharmacy medication reconciliations sound effects technician and/or nursing. Patients Allergies have been reviewed. Allergies Allergies Coded Allergies No Known Drug Allergies (Unverified10/05/19) Past Hbtgkzw-Xyumwr-Kraota Hx Patient Social History Alcohol Use: Denies Use Recreational Drug Use: No Smoking Status: Never a Smoker 2nd Hand Smoke Exposure: No Recent Foreign Travel: No Contact w/other who traveled: No Recent Hopitalizations: No Recent Infectious Disease Expo: No Immunizations Up To Date Date of Pneumonia Vaccine: Jun 21, 2018 Date of Influenza Vaccine: Dec 27, 2018 Seasonal Allergies Seasonal Allergies: No Past Medical History Surgeries: Orthopedic (R total knee), Prostatectomy, Vascular Surgery (carotid endarterectomy) Currently Using CPAP: No Currently Using BIPAP: No Cardiac: Atrial Fibrillation (on Eliquis), Deep Vein Thrombosis, High Cholesterol, Hypertension Reproductive: No Sexually Transmitted Disease: No HIV/AIDS: No Musculoskeletal: Arthritis Loss of Vision: Denies Hearing Impairment: Hard of Hearing, Bilateral Hearing Aide Cancer: Prostate Did You Recieve Any Treatments: Yes What Type of Treatment Did You: Radiation History of Blood Disorders: No Adverse Reaction to Blood Escalera: No (N/A) Family History Cardiomyopathy 19 FATHER Diabetes mellitus paternal grandmother maternal grandmother FH: breast cancer 19 MOTHER Review of Systems Constitutional: dizziness, weakness EENTM: hearing loss (hearing aids); No blurred vision Respiratory: No cough; dyspnea on exertion Cardiovascular: No chest pain, No palpitations Gastrointestinal: No abdominal pain, No nausea, No vomiting Genitourinary: No dysuria, No hematuria Musculoskeletal: back pain, muscle cramps Skin: No dryness, No rash Psychiatric/Neurological: Denies Anxiety, Denies Depressed; Numbness (bilateral feet) Physical Exam Physical Exam Vital Signs Vital Signs - First Documented 01/10/20 10:45 Temp 36.3 Pulse 36 Resp 17 B/P (MAP) 102/62 (75) Pulse Ox 97 Capillary Refill : Less Than 3 Seconds Height, Weight, BMI Height: 6'2.00" Weight: 213lbs. 13.4oz. 96.901902om; 29.00 BMI Method: General Appearance: No Apparent Distress, WD/WN Eyes: Bilateral Eye PERRL, Bilateral Eye EOMI HEENT: No Pale Conjunctivae (L), No Pale Conjunctivae (R) Neck: Non Tender, Supple Respiratory: Lungs Clear, Normal Breath Sounds Cardiovascular: No Murmur, Bradycardia Gastrointestinal: Normal Bowel Sounds, Non Tender, Soft Extremity: Normal Capillary Refill, Pedal Edema, Swelling (2+ pitting edema bilateral lower extremities) Neurologic/Psychiatric: Alert, Oriented x3, Normal Mood/Affect Skin: Normal Color, Warm/Dry Results Results/Procedures Labs Laboratory Tests 01/10/20 10:50 Patient resulted labs reviewed. Imaging: Reviewed Imaging Report Imaging Date of Exam:01/10/20 CHEST 1 VIEW, AP/PA ONLY HISTORY: Shortness of breath and bradycardia. COMPARISON: 12/15/2018 TECHNIQUE: Frontal view of the chest. FINDINGS: Lung volumes are normal. There are chronic interstitial markings in the lung bases. No new consolidation is seen. There is no pleural effusion or pneumothorax. The cardiac silhouette is stable in size. There is an old left-sided rib fracture. There are degenerative changes in the shoulders and spine. IMPRESSION: 1. Stable chronic basilar interstitial markings with no acute pulmonary abnormality seen. Dictated by: Dictated on workstation # [id number] Dict: 01/10/20 1111 Trans: 01/10/20 1133 [id number] Interpreted by: ANGELLA CHESTER MD Electronically signed by: ANGELLA CHESTER MD 01/10/20 1133 Assessment/Plan Assessment and Plan 1. Symptomatic bradycardia * Patient having increasing shortness of breath, lightheadedness, and dizziness for 2-3 days * On arrival, HR 36 * EKG revealed bradycardia and 3rd degree AV block * Cardiology consulted, appreciate their assistance * On tele 2. Elevated troponin, likely NSTEMI Type 2 secondary to bradycardia * Troponin in ED 0.038, will trend * EKG revealed bradycardia and 3rd degree AV block * Cardiology consulted, appreciate their assistance 3. Atrial fibrillation * CHADsVASc 6 * HASBLED 3 * Diagnosed 1 year ago and required cardioversion * Currently taking diltiazem, amiodarone, and metoprolol succinate * Will hold metoprolol due to symptomatic bradycardia * On Eliquis for anticoagulation * On tele 4. Hypertension * Currently normotensive * Patient takes metoprolol, will hold due to symptomatic bradycardia 5. Hyperlipidemia * Continue home medication 6. 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 Blum Diet: cardiac FULL CODE PPx: VANDANA Banks MD 01/10/202140: Past Njrscur-Vnevdp-Weoexh Hx Past Med/Social Hx: Reviewed Nursing Past Med/Soc Hx Family History Cardiomyopathy 19 FATHER Diabetes mellitus paternal grandmother maternal grandmother FH: breast cancer 19 MOTHER Assessment/Plan Admission Diagnosis Bradycardia Admission Status: Inpatient Order (span 2 midnights) Reason for Inpatient Admission: see below Assessment and Plan Patient admitted with symptomatic bradycardia. Likely iatrogenic from rate controlling meds. Will hold all of them for now and monitor on telemetry. Cardiology consulted, appreciate assistance. Continue OAC. Diagnosis/Problems Diagnosis/Problems (1) Symptomatic bradycardia Status: Acute (2) A-fib Qualifiers: Atrial fibrillation type: paroxysmal Qualified Codes: I48.0 - Paroxysmal atrial fibrillation Supervisory-Addendum Brief Verification & Attestation Participated in pt care: history, MDM, physical Personally performed: exam, history, MDM, supervision of care Care discussed with: Medical Student Procedures: n/a Results interpretation: Verified all documentation Verification and Attestation of Medical Student E/M Service A medical student performed and documented this service in my presence. I reviewed and verified all information documented by the medical student and made modifications to such information, when appropriate. I personally performed the physical exam and medical decision making. Vandana Paiz, Jan 10, 2020,21:41 LISET ARMENTA, Jan 10, 2020 13:11 VANDANA PAIZ MD Jan 10, 2020 21:41
[2020-01-10] MEDS ORDERED: CATHETER FLUSH 10 ML SYR IV PRN ×2 (13:45→14:00)
[2020-01-10] MEDS: NS IV 1000 ML 1,000 ML IV SCH (13:57)
--- NOTE | 2020-01-10 13:57 | NUR ---
ARIEL BARAKAT admitted to room CU2-1, with an admitting diagnosis of BRADYCARDIA, on 01/10/20 from [place] via WHEELCHAIR, accompanied by STAFF.ARIEL BARAKAT introduced to surroundings, call light, bed controls, phone, TV, temperature control, lights, meal times, smoking policy, visitor policy, side rail policy, bathrooms and showers. Patient Rights given to patient in the handbook. ARIEL BARAKAT verbalizes understanding that [facility] is not responsible for the loss or damage to any personal effects or valuables that are kept in the patients posession during their hospitalization. The following Patient Care Plans were discussed with the PT: Discharge Planning. ARIEL BARAKAT verbalizes understanding of Interdisciplinary Patient Education. Patient and/or family were informed about the Rapid Response Team and its purpose.
[2020-01-10] MEDS ORDERED: DILT-27 PO (15:01)
[2020-01-10] MEDS ORDERED: AMIO200T4 PO (15:01)
[2020-01-10] MEDS ORDERED: APIX5TAB PO (15:01)
[2020-01-10] MEDS ORDERED: TIZA2TAB7 PO (15:07)
--- NOTE | 2020-01-10 15:41 | Consultation-Cardiology ---
HPI-Cardiology Cardiology Consultation: Date of Consultation 01/10/20 Time Seen by a Provider: 14:30 Date of Admission Attending Physician Valencia Paiz MD Admitting Physician Martin Rubio MD Consulting Physician PAMELLA WHITTINGTON MD, MA, FACP, FACC, FSCAI, CCDS HPI: Chief Complaint: Reason for cardiology consult: Symptomatic bradycardia HPI Mr. Sosa is a 79 year old male admitted to ICU 2 from the ED with symptomatic sinus bradycardia. He reports he takes Metoprolol, Cardizem CD and Amiodarone at home d/t a h/o PAF for which he had cardioversion last yr by Dr. Jacobs. He states he had been without his Metoprolol for a few days, but he had previously only been taking it every other day, he was able to get it refilled a couple days ago and started taking it again. His last dose was last night. He states he walked his dog this morning, but did feel SOB, which has been persistent for a couple days, but progressively getting worse. He does not report any CP. He reports he has been having back pain and going to the chiropractor in [place]. His took him today and dropped him off at the door. He reports feeling weak, dizzy, SOB, and very off balance. He denies any syncope or near syncope. He states after his appt he went to [facility] and was again very weak, SOB, dizzy, and was having discomfort radiating across his shoulders and into his arms bilat. His symptoms would improve with rest. He continued to feel unwell and went to Dr. Jacobs's office where he was directed to the ED. He currently reports no discomfort or SOB while lying in the bed. He has chronic mild bilat LE swelling which is least in the morning and worse at the end of the day. No c/o n/v/d. No c/o fever or chills. Review of Systems-Cardiology Review of Systems Constitutional: As described under HPI Eyes: No vision change Ears/Nose/Throat: No epistaxis Respiratory: As described under HPI Cardiovascular: As described under HPI Gastrointestinal: No diarrhea, No vomiting Genitourinary: No dysuria, No hematuria Musculoskeletal: As describe under HPI Skin: No rash on exposed areas, No ulcerations on exposed areas Psychiatric/Neurological: As described under HPI Hematologic: no symptoms reported RVN-Trkutj-Wozwil Hx Patient Social History Alcohol Use: Denies Use Recreational Drug Use: No Smoking Status: Never a Smoker 2nd Hand Smoke Exposure: No Recent Foreign Travel: No Recent Infectious Disease Expo: No Hospitalization with Isolation: Denies Immunizations Up To Date Date of Pneumonia Vaccine: Jun 21, 2018 Date of Influenza Vaccine: Dec 28, 2019 Past Medical History PMH As described under Assessment. Family Medical History Family Medical History: History of father having cardiomyopathy. Family History: Cardiomyopathy 19 FATHER Diabetes mellitus paternal grandmother maternal grandmother FH: breast cancer 19 MOTHER Allergies and Home Medications Allergies Coded Allergies: No Known Drug Allergies (Unverified , 10/05/19) Home Medications Amiodarone HCl 200 Mg Tablet, 200 MG PO BID, (Reported) Apixaban 5 Mg Tablet, 5 MG PO BID, (Reported) Atorvastatin Calcium 40 Mg Tablet, 40 MG PO DAILY, (Reported) Diltiazem HCl 120 Mg Cap.er.24h, 125 MG PO DAILY, (Reported) Metoprolol Succinate 100 Mg Tab.er.24h, 100 MG PO DAILY, (Reported) Tizanidine HCl 2 Mg Tablet, 2-4 MG PO Q6H PRN for MUSCLE SPASMS, (Reported) Triamterene/Hydrochlorothiazid 1 Each Capsule, 1 CAP PO DAILY PRN for SWELLING, (Reported) Patient Home Medication List Home Medication List Reviewed: Yes Physical Exam-Cardiology Physical Exam Vital Signs/I&O 01/10/20 01/10/20 01/10/20 01/10/20 10:45 13:13 13:53 14:00 Temp 36.3 Pulse 36 36 48 Resp 17 17 B/P (MAP) 102/62 (75) 136/78 (75) Pulse Ox 97 99 99 O2 Delivery Room Air Capillary Refill : Less Than 3 Seconds Constitutional: AAO x 3, well-developed, well-nourished HEENT: PERRL, hearing is well preserved Neck: No carotid bruit; carotid pulses are 2 + bilaterally Respiratory: No accessory muscle use, No respiratory distress; chest expansion is symmetric, chest is bilaterally symmetric, lungs clear to auscultation Cardiovascular: No JVD; bradycardia, S1 and S2 Gastrointestinal: No tender; soft, audible bowel sounds Extremities: other (mild bilat LE swelling) Neurologic/Psychiatric: grossly intact (moves all extremities) Skin: No rash on exposed areas, No ulcerations on exposed areas Data Review Labs Laboratory Tests 01/10/20 10:50: White Blood Count 7.4, Red Blood Count 3.58L, Hemoglobin 11.0L, Hematocrit 35L, Mean Corpuscular Volume 98, Mean Corpuscular Hemoglobin 31, Mean Corpuscular Hemoglobin Concent 32, Red Cell Distribution Width 14.2, Platelet Count 203, Mean Platelet Volume 10.0, Immature Granulocyte % (Auto) 1, Neutrophils (%) (Auto) 78H, Lymphocytes (%) (Auto) 11L, Monocytes (%) (Auto) 9, Eosinophils (%) (Auto) 1, Basophils (%) (Auto) 0, Neutrophils # (Auto) 5.8, Lymphocytes # (Auto) 0.8L, Monocytes # (Auto) 0.6, Eosinophils # (Auto) 0.1, Basophils # (Auto) 0.0, Immature Granulocyte # (Auto) 0.1, Sodium Level 138, Potassium Level 4.4, Chloride Level 105, Carbon Dioxide Level 24, Anion Gap 9, Blood Urea Nitrogen 24H, Creatinine 1.12, Estimat Glomerular Filtration Rate > 60, BUN/Creatinine Ratio 21, Glucose Level 123H, Calcium Level 8.4L, Creatine Kinase MB 2.4, Tropo renetta I 0.038H, Thyroid Stimulating Hormone (TSH) 2.49 A/P-Cardiology Assessment/Admission Diagnosis Profound bradycardia that appears to a junctional or low atrial rhythm, likely related to medications Coronary artery disease 40-50% mid right nonobstructive disease per cardiac cath of Dec 10, [address] Jacobs Stress test done May [address] Jacobs revealed no ischemia or infarct Echocardiogram of Dec 16, [address] Jacobs showed dilated LA or LA appendage; no clot or thrombus; LVEF 60%; mild MR H/O Paroxysmal atrial fibrillation with rapid ventricular response, was hospitalized in October 2018 with atrial fibrillation and rapid ventricular response. Had a MIRACLE showed dilated left atrium and left atrial appendage with echogenic density suggestive of thrombus normal left ventricular function. Repeat MIRACLE on December 16, 2018 showed resolution of the thrombus, underwent electrical cardioversion which was successful in terminating atrial fibrillation return to atrial fibrillation, loaded with amiodarone then had another cardioversion and was successful in resolving atrial fibrillation. Had been maintained on amiodarone, Toprol and Cardizem. OAC with Eliquis 5mg BID History of multiple DVT Status post hematuria, secondary to kidney stone Carotid stenosis, history of R CEA [facility] in [place], [place] Normal [place], aorto screen was normal done by [facility] in 2017 Prostate cancer with recurrence, followed by Dr. 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 Discussion and Recomendations Appears to be on metoprolol and diltiazem and amiodarone. We will stop them all. If and when heart rate recovers, some of these may be added back to the regimen Continue OAC with Eliquis d/t h/o PAF Keep on tele Monitor lab - replace electrolytes as indicated We would like to thank Medical services for this consult Further recs will be based on his hospital course Clinical Quality Measures DVT/VTE Risk/Contraindication: Risk Factor Score Per Nursin RFS Level Per Nursing on Admit: 3=High PAMELLA WHITTINGTON MD FACP [facility] CCDS Jan 10, 2020 15:41
[2020-01-10] MEDS ORDERED: CALC-823 PO (16:01)
[2020-01-10] MEDS ORDERED: ACET-2650 PO (16:01)
--- NOTE | 2020-01-10 16:04 | NUR ---
SPOKE WITH THE PT (I CALLED HIS ROOM PHONE), THERE WAS A MEDICATION LIST ON HIS CHART, I WENT THRU THE EXT MED HISTORY AND CALLED RUBÉN TO COMPLETE THE MED REC PT WAS ABLE TO TELL ME HOW/WHEN HE TAKES EACH MEDICATION ACCORDING TO THE PT HE TAKES TRIAMTERENE/ HCTZ NEEDED ON THE MEDICATION LIST IT HAS TRAMADOL 50MG AND THE PT ALSO MENTIONED THAT HE TAKES IT PRN, HOWEVER THE LAST TIME THIS MEDICATION WAS FILLED WAS DECEMBER 2018- DUE TO THE PRESCRIPTION BEING I DID NOT INCLUDE IT ON THE MED REC OTC MEDS: CALCIUM TYLENOL
[2020-01-10] MEDS: APIXABAN 5 MG (ELIQUIS) TABLET PO SCH (19:30)
[2020-01-11] MEDS: NS IV 1000 ML 1,000 ML IV SCH (03:05)
[2020-01-11 04:00] LABS: BASOPHILS % (AUTO) 1 % (0-10); EOSINOPHILS # (AUTO) 0.1 10^3/uL (0.0-0.3); EOSINOPHILS % (AUTO) 1 % (0-10); HEMATOCRIT 35 % (40-54); HEMOGLOBIN 11.3 g/dL (13.3-17.7); LYMPHOCYTES # (AUTO) 0.8 10^3/uL (1.0-4.0); LYMPHOCYTES % (AUTO) 12 % (12-44); MEAN CORPUSCULAR HEMOGLOBIN 31 pg (25-34); MEAN CORPUSCULAR HGB CONC 32 g/dL (32-36); MEAN CORPUSCULAR VOLUME 95 fL (80-99); MEAN PLATELET VOLUME 10.1 fL (9.0-12.2); MONOCYTES # (AUTO) 0.6 10^3/uL (0.0-1.0); MONOCYTES % (AUTO) 9 % (0-12); NEUTROPHILS % (AUTO) 76 % (42-75); PLATELET COUNT 201 10^3/uL (130-400); WHITE BLOOD COUNT 6.6 10^3/uL (4.3-11.0)
[2020-01-11 04:11] LABS: CHLORIDE 108 MMOL/L (98-107); POTASSIUM 4.2 MMOL/L (3.6-5.0); SODIUM 140 MMOL/L (135-145)
[2020-01-11 04:12] LABS: CALCIUM 8.2 MG/DL (8.5-10.1); GLUCOSE 92 MG/DL (70-105)
[2020-01-11 04:14] LABS: CARBON DIOXIDE 24 MMOL/L (21-32)
[2020-01-11 04:16] LABS: CREATININE SERUM 0.89 MG/DL (0.60-1.30); GFR ESTIMATED > 60; PHOSPHORUS 3.3 MG/DL (2.3-4.7)
[2020-01-11 04:17] LABS: BUN/CREATININE RATIO 17
[2020-01-11 04:18] LABS: MAGNESIUM 2.1 MG/DL (1.6-2.4)
--- NOTE | 2020-01-11 04:37 | Pulmonary Consultation ---
AFIA SCHULZ MED STUDENT 01/11/20 0437: History of Present Illness History of Present Illness Date Seen by Provider: Jan 11, 2020 Time Seen by Provider: 04:33 Date of Admission History of Present Illness Mr. Phil Sosa, "Rolando" is a 79 y/o M presenting with a CC of SoB with activity and dizziness. Sx have been worsening slowly over the past few weeks, but peaked yday with him almost losing his balance and experiencing significant SoB before his chiropractor appointment. Sx continued to worsen and he decided to see Dr. Jacobs who he usually sees for his heart. Dr. Jacobs recommended he go to the ED, where he was found to have a 3rd degree AV block. SoB was worse with movement and activity, and better with rest. Sx were dependent on current activity. He admitted to some chest pain with activity in the past few weeks, but none recently. Allergies and Home Medications Allergies Coded Allergies: No Known Drug Allergies (Unverified , 10/05/19) Home Medications Acetaminophen 650 Mg Tablet.er, 650-1,300 MG PO Q8H PRN for PAIN-MILD (1-4), (Reported) Amiodarone HCl 200 Mg Tablet, 200 MG PO BID, (Reported) Apixaban 5 Mg Tablet, 5 MG PO BID, (Reported) Atorvastatin Calcium 40 Mg Tablet, 40 MG PO DAILY, (Reported) Calcium Carbonate 500 Mg Tablet, 500 MG PO DAILY, (Reported) Diltiazem HCl 120 Mg Cap.er.24h, 125 MG PO DAILY, (Reported) Metoprolol Succinate 100 Mg Tab.er.24h, 100 MG PO HS, (Reported) Tizanidine HCl 2 Mg Tablet, 2-4 MG PO Q6H PRN for MUSCLE SPASMS, (Reported) Triamterene/Hydrochlorothiazid 1 Each Capsule, 1 CAP PO DAILY PRN for SWELLING, (Reported) Past Fuxmjic-Kpfdyo-Xwdtkc Hx Past Med/Social Hx: Reviewed Nursing Past Med/Soc Hx Patient Social History Alcohol Use: Denies Use Number of Drinks Today: AA Recreational Drug Use: No Smoking Status: Never a Smoker 2nd Hand Smoke Exposure: No Recent Foreign Travel: No Contact w/Someone Who Travel: No Recent Infectious Disease Expo: No Recent Hopitalizations: No Physical Abuse: No Sexual Abuse: No Immunizations Up To Date Date of Pneumonia Vaccine: Jun 21, 2018 Date of Influenza Vaccine: Dec 28, 2019 Seasonal Allergies Seasonal Allergies: No Past Medical History Surgeries: Yes (RIGHT KNEE REPLACEMENT, CAROTID ARTERY, ) Orthopedic (R total knee), Prostatectomy, Vascular Surgery (carotid endarterectomy) Respiratory: No Currently Using CPAP: No Currently Using BIPAP: No Cardiac: Yes (HX AFIB) Atrial Fibrillation (on Eliquis, dx in 2019), Deep Vein Thrombosis, High Cholesterol, Hypertension Neurological: No Reproductive Disorders: No Sexually Transmitted Disease: No HIV/AIDS: No Genitourinary: Yes Gastrointestinal: No Musculoskeletal: Yes (back ) Arthritis Endocrine: No HEENT: Yes (GLASSES) Loss of Vision: Denies Hearing Impairment: Hard of Hearing, Bilateral Hearing Aide Cancer: Yes Prostate Did You Recieve Any Treatments: Yes What Type of Treatment Did You: Radiation Psychosocial: No Integumentary: No Blood Disorders: No Adverse Reaction/Blood Tranf: No (N/A) Family Medical History Cardiomyopathy 19 FATHER Diabetes mellitus paternal grandmother maternal grandmother FH: breast cancer 19 MOTHER Review of Systems Constitutional: No: Fever, Chills Respiratory: Shortness of breath; No: Wheezing Cardiovascular: Edema; No: Chest Pain Gastrointestinal: No: Nausea, Abdominal Pain Sepsis Event Evaluation Height, Weight, BMI Height: 6'2.00" Weight: 213lbs. 13.4oz. 96.964490rw; 29.51 BMI Method: Exam Exam Vital Signs Date Time Temp Pulse Resp B/P (MAP) Pulse Ox O2 Delivery O2 Flow Rate FiO2 01/11/20 03:06 37.0 01/11/20 02:00 60 138/79 89 Room Air 01/11/20 01:00 56 01/11/20 01:00 56 137/78 93 Room Air 01/11/20 00:00 53 127/82 91 Room Air 01/10/20 23:05 36.0 01/10/20 23:00 58 127/88 Room Air 01/10/20 22:00 49 112/67 93 Room Air 01/10/20 21:00 52 156/87 Room Air 01/10/20 20:07 100 Room Air 01/10/20 20:00 48 144/78 96 Room Air 01/10/20 19:24 37.0 01/10/20 19:00 52 120/68 98 Room Air 01/10/20 19:00 52 01/10/20 18:00 50 154/109 96 Room Air 01/10/20 17:00 49 139/71 97 Room Air 01/10/20 16:00 36.5 01/10/20 16:00 51 137/72 95 Room Air 01/10/20 15:00 49 135/77 96 Room Air 01/10/20 14:00 99 Room Air 01/10/20 13:53 48 01/10/20 13:45 42 125/78 98 Room Air 01/10/20 13:13 36 17 136/78 (75) 99 01/10/20 10:45 36.3 36 17 102/62 (75) 97 I & O 01/11/20 07:00 Intake Total 2100 ml Output Total 700 ml Balance 1400 ml Height & Weight Height: 6'2.00" Weight: 213lbs. 13.4oz. 96.838137yg; 29.51 BMI Method: General Appearance: No Apparent Distress, WD/WN HEENT: PERRL/EOMI Neck: Full Range of Motion Respiratory: Chest Non Tender, Lungs Clear, Normal Breath Sounds, No Accessory Muscle Use, No Respiratory Distress Cardiovascular: Regular Rate, Rhythm, Normal Peripheral Pulses, Bradycardia, Other (L carotid bruit) Capillary Refill: Less Than 3 Seconds Peripheral Pulses: 2+ Dorsalis Pedis (R), 2+ Left Dors-Pedis (L), 2+ Radial Pulses (R), 2+ Radial Pulses (L) Extremity: Normal Capillary Refill, Pedal Edema Neurologic/Psychiatric: Alert, Oriented x3, No Motor/Sensory Deficits, Normal Mood/Affect Skin: Normal Color, Warm/Dry Results Lab Laboratory Tests 01/10/20 10:50 01/11/20 03:44 PHILIP MURGUIA DO 01/11/20 0618: Allergies and Home Medications Allergies Coded Allergies: No Known Drug Allergies (Unverified , 10/05/19) Home Medications Acetaminophen 650 Mg Tablet.er, 650-1,300 MG PO Q8H PRN for PAIN-MILD (1-4), (Reported) Amiodarone HCl 200 Mg Tablet, 200 MG PO BID, (Reported) Apixaban 5 Mg Tablet, 5 MG PO BID, (Reported) Atorvastatin Calcium 40 Mg Tablet, 40 MG PO DAILY, (Reported) Calcium Carbonate 500 Mg Tablet, 500 MG PO DAILY, (Reported) Diltiazem HCl 120 Mg Cap.er.24h, 125 MG PO DAILY, (Reported) Metoprolol Succinate 100 Mg Tab.er.24h, 100 MG PO HS, (Reported) Tizanidine HCl 2 Mg Tablet, 2-4 MG PO Q6H PRN for MUSCLE SPASMS, (Reported) Triamterene/Hydrochlorothiazid 1 Each Capsule, 1 CAP PO DAILY PRN for SWELLING, (Reported) Past Lucwmsf-Cpkhpr-Jvskan Hx Family Medical History Cardiomyopathy 19 FATHER Diabetes mellitus paternal grandmother maternal grandmother FH: breast cancer 19 MOTHER Review of Systems Time Seen by Provider: 08:36 Exam Exam General Appearance: No Apparent Distress, WD/WN HEENT: PERRL/EOMI Neck: Full Range of Motion Respiratory: Chest Non Tender, Lungs Clear, Normal Breath Sounds, No Accessory Muscle Use, No Respiratory Distress Cardiovascular: Regular Rate, Rhythm, Normal Peripheral Pulses, Bradycardia Extremity: Normal Capillary Refill Neurologic/Psychiatric: Alert, Oriented x3, No Motor/Sensory Deficits, Normal Mood/Affect Skin: Normal Color, Warm/Dry Assessment/Plan Assessment/Plan Bradycardia -Cardiology following -Possible pacemaker CAD Hx of Afib -Coumadin Hx of prostate cancer with mets to bone Supervisory-Addendum Brief Verification & Attestation Participated in pt care: history, MDM, physical Personally performed: exam, history, MDM Care discussed with: Medical Student Procedures: n/a Verification and Attestation of Medical Student E/M Service A medical student performed and documented this service in my presence. I reviewed and verified all information documented by the medical student and made modifications to such information, when appropriate. I personally performed the physical exam and medical decision making. Philip Murguia, Jan 11, 2020,08:35 AFIA SCHULZ STUDENT Jan 11, 2020 04:37 PHILIP MURGUIA DO Jan 11, 2020 06:18
--- NOTE | 2020-01-11 07:32 | Diagnostic Imaging Report ---
INDICATION: Dyspnea Upright portable chest shows cardiomegaly with no failure. No infiltrates or effusions are seen. There is no significant change from 01/10/2020. IMPRESSION: Stable chest. Dictated by: Dictated on workstation # [id number]
[2020-01-11] MEDS: APIXABAN 5 MG (ELIQUIS) TABLET PO SCH (08:34)
[2020-01-11] MEDS ORDERED: TRIAMTERENE/HCTZ 75-50 (MAXZIDE,DYAZIDE) TABLET PO SCH (09:00)
[2020-01-11] MEDS ORDERED: dilTIAZem120 MG (CARDIZEM CD) CAP PO SCH (09:00)
--- NOTE | 2020-01-11 09:09 | Progress Note - Hospitalist ---
Subjective Subjective/Events-last exam Mr. Sosa is feeling well this am during interview. He denies chest pain or shortness of breath. Patient was sitting in chair during questioning and denies shortness of breath during transfer. He denies any bowel movements during hospital course, but believes he will. No other concerns voiced at this time. Objective Exam Vital Signs Vital Signs Date Time Temp Pulse Resp B/P (MAP) Pulse Ox O2 Delivery O2 Flow Rate FiO2 01/11/20 09:00 49 144/77 99 Room Air 01/11/20 03:06 37.0 01/10/20 13:13 17 Capillary Refill : Less Than 3 Seconds General Appearance: No Apparent Distress, WD/WN HEENT: PERRL/EOMI Neck: Non Tender, Supple Respiratory: Lungs Clear, Normal Breath Sounds Cardiovascular: No Murmur, Bradycardia Gastrointestinal: Normal Bowel Sounds, Non Tender, Soft Extremity: Normal Capillary Refill, Pedal Edema Neurologic/Psychiatric: Alert, Normal Mood/Affect Skin: Normal Color Results/Procedures Lab Laboratory Tests 01/11/20 03:44 Patient resulted labs reviewed. Imaging: Reviewed Imaging Report Radiology Date of Exam:01/11/20 CHEST 1 VIEW, AP/PA ONLY INDICATION: Dyspnea Upright portable chest shows cardiomegaly with no failure. No infiltrates or effusions are seen. There is no significant change from 01/10/2020. IMPRESSION: Stable chest. Dictated by: Dictated on workstation # [id number] Dict: 01/11/20 0726 Trans: 01/11/20 0737 [facility] [id number] Interpreted by: AVINASH ALMANZA MD Electronically signed by: AVINASH ALMANZA MD 01/11/20 0737 Assessment/Plan Assessment and Plan Assess & Plan/Chief Complaint 1. Symptomatic bradycardia * Patient having increasing shortness of breath, lightheadedness, and dizziness for 2-3 days * On arrival, HR 36 * EKG revealed bradycardia and 3rd degree AV block * Cardiology consulted, appreciate their assistance * Believed to be iatrogenic due to medications but will evaluate further * TSH 2.49 * On tele 2. Elevated troponin, likely NSTEMI Type 2 secondary to bradycardia, resolved * Troponin in ED 0.038 * 01/10 troponin down to <0.028 * EKG revealed bradycardia and 3rd degree AV block * Cardiology consulted, appreciate their assistance 3. Atrial fibrillation * CHADsVASc 6 * HASBLED 3 * Diagnosed 1 year ago and required cardioversion * Currently taking diltiazem, amiodarone, and metoprolol succinate * Will hold metoprolol due to symptomatic bradycardia * On Eliquis for anticoagulation * On tele * Cardiology consulted for #1, will evaluate medications for atrial fibrillation on d/c 4. Hypertension * Patient takes metoprolol, will hold due to symptomatic bradycardia * Given maxzide this am * Will monitor closely 5. Hyperlipidemia * Continue home medication 6. 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 Blum Diet: cardiac FULL CODE PPx: Eliquis Clinical Quality Measures DVT/VTE Risk/Contraindication: Risk Factor Score Per Nursin RFS Level Per Nursing on Admit: 3=High LISET ARMENTA, Jan 11, 2020 09:09
--- NOTE | 2020-01-11 12:34 | Cardiology Progress Note ---
Subjective Date Seen by Provider: Jan 11, 2020 Time Seen by Provider: 11:30 Subjective/Events-last exam Patient is sitting up in chair, denies any further episode of dizziness. Objective-Cardiology Exam Last Set of Vital Signs Vital Signs 01/10/20 01/11/20 01/11/20 13:13 03:06 09:00 Temp 37.0 Pulse 49 Resp 17 B/P (MAP) 144/77 Pulse Ox 99 O2 Delivery Room Air Capillary Refill : Less Than 3 Seconds I&O Intake and Output 01/11/20 00:00 Intake Total 900 ml Output Total 400 ml Balance 500 ml Intake Oral 900 ml Output Urine Total 400 ml Daily Weight Change No General: Alert, Oriented X3, Cooperative HEENT: Atraumatic, PERRLA Neck: Supple, No JVD, No Thyromegaly Lungs: Clear to Auscultation, Normal Air Movement Heart: Other (bradycardic) Abdomen: Normal Bowel Sounds, Soft, No Tenderness, No Hepatosplenomegaly, No Masses Extremities: No Clubbing, No Cyanosis, No Edema, Normal Pulses, No Tenderness/Swelling Skin: No Rashes, No Breakdown, No Significant Lesion Neuro: Normal Gait, Normal Speech, Strength at 5/5 X4 Ext, Normal Tone, Sensat ion Intact Psych/Mental Status: Mental Status NL, Mood NL Results Lab Laboratory Tests 01/11/20 03:44 A/P-Cardiology Admission Diagnosis Symptomatic bradycardia PAF CAD HTN Assessment/Plan Profound bradycardia that appears to a junctional or low atrial rhythm, likely related to medications, heart rate improving. Denies any further episode of dizziness. Currently off of Cardizem, Toprol XL and Amiodarone Coronary artery disease 40-50% mid right nonobstructive disease per cardiac cath of Dec 10, 2016 Stress test done May 2019 revealed no ischemia or infarct Echocardiogram of Dec 16, 2019 showed dilated LA or LA appendage; no clot or thrombus; LVEF 60%; mild MR H/O Paroxysmal atrial fibrillation with rapid ventricular response, was hospitalized in October 2018 with atrial fibrillation and rapid ventricular response. Had a MIRACLE showed dilated left atrium and left atrial appendage with echogenic density suggestive of thrombus normal left ventricular function. Repeat MIRACLE on December 16, 2018 showed resolution of the thrombus, underwent electrical cardioversion which was successful in terminating atrial fibrillation return to atrial fibrillation, loaded with amiodarone then had another cardioversion and was successful in resolving atrial fibrillation. Had been maintained on amiodarone, Toprol and Cardizem. OAC with Eliquis 5mg BID History of multiple DVT Status post hematuria, secondary to kidney stone Carotid stenosis, history of R CEA [facility] in [place], [place], aorto screen was normal [facility] by [facility] in 2017 Prostate cancer with recurrence, followed by Dr. Weller Hypertension, mildly elevated, continue to monitor. Hyperlipidemia, continue to monitor as outpatient. Heterozygous mutation for Factor V Leiden, was found per study October 26, 2011 with one positive allele. OK for discharge from cardiology standpoint. Continue to hold Amiodarone, Cardizem, Toprol XL. F/u as outpatient tomorrow. Clinical Quality Measures DVT/VTE Risk/Contraindication: Risk Factor Score Per Nursin RFS Level Per Nursing on Admit: 3=High NAVID FIELDS Jan 11, 2020 12:34
--- NOTE | 2020-01-11 13:42 | Discharge Inst-Simple/Standard ---
Discharge Inst-Standard Patient Instructions/Follow Up Plan of Care/Instructions/FU: Please continue to take your medications as written. Please follow up with Dr Jacobs tomorrow to follow up this hospital stay. Activity as Tolerated: Yes Discharge Diet: Cardiac Diet Return to The Hospital For: Chest pain, shortness of breath, confusion, weakness, if you feel you are getting worse. VANDANA BEEBE MD Jan 11, 2020 13:42
--- NOTE | 2020-01-11 13:42 | Cardiology Progress Note ---
Subjective Date Seen by Provider: Jan 11, 2020 Time Seen by Provider: 13:37 Subjective/Events-last exam Patient was seen and evaluated, sitting comfortably in bed, heart rate is better Denied any dizziness or lightheadedness. Has been feeling better. Asking to go home. Review of Systems General: No Chills, No Night Sweats, No Fatigue, No Malaise, No Appetite, No Other HEENT: No Head Aches, No Visual Changes, No Eye Pain, No Ear Pain, No Dysphasia, No Sinus Congestion, No Post Nasal Drip, No Sore Throat, No Other Pulmonary: No Dyspnea, No Cough, No Pleuritic Chest Pain, No Other Cardiovascular: No: Chest Pain, Palpitations, Orthopnea, Paroxysmal Noc. Dyspnea, Edema, Lt Headedness, Other Objective-Cardiology Exam Last Set of Vital Signs Vital Signs 01/10/20 01/11/20 01/11/20 13:13 03:06 09:00 Temp 37.0 Pulse 49 Resp 17 B/P (MAP) 144/77 Pulse Ox 99 O2 Delivery Room Air Capillary Refill : Less Than 3 Seconds I&O Intake and Output 01/11/20 00:00 Intake Total 900 ml Output Total 400 ml Balance 500 ml Intake Oral 900 ml Output Urine Total 400 ml Daily Weight Change No General: Alert, Oriented X3, Cooperative HEENT: Atraumatic, PERRLA Neck: Supple, No JVD, No Thyromegaly Lungs: Clear to Auscultation, Normal Air Movement Heart: Regular Rate, Normal S1, Normal S2, No Murmurs Abdomen: Normal Bowel Sounds, Soft, No Tenderness, No Hepatosplenomegaly, No Masses Extremities: No Clubbing, No Cyanosis, No Edema, Normal Pulses, No Tenderness/Swelling Skin: No Rashes, No Breakdown, No Significant Lesion Neuro: Normal Gait, Normal Speech, Strength at 5/5 X4 Ext, Normal Tone, Sensation Intact Psych/Mental Status: Mental Status NL, Mood NL Results Lab Laboratory Tests 01/11/20 03:44 A/P-Cardiology Admission Diagnosis Symptomatic bradycardia PAF CAD HTN Assessment/Plan Sinus node dysfunction, severe bradycardia with escape junctional rhythm, probably underlying sinus node dysfunction that was exacerbated by the combi [place] of diltiazem, Toprol and amiodarone. Currently better once she stopped those medication feeling better. I will discharge him home and keep him off those medication and planning to see him tomorrow in the office and initiate low-dose amiodarone or consider the use of class IC antiarrhythmic medication for his atrial fibrillation. I will avoid use beta blockers and/or calcium channel blockers for now Hypertension, poorly controlled. I'll keep him off his medication today and planning to consider the use of EH inhibitor or ARB tomorrow after evaluating his blood pressure. Coronary artery disease 40-50% mid right nonobstructive disease per cardiac cath of Dec 10, 2016 Stress test done May 2019 revealed no ischemia or infarct Echocardiogram of Dec 16, 2019 showed dilated LA or LA appendage; no clot or thrombus; LVEF 60%; mild MR H/O Paroxysmal atrial fibrillation with rapid ventricular response, was hospitalized in October 2018 with atrial fibrillation and rapid ventricular response. Had a MIRACLE showed dilated left atrium and left atrial appendage with echogenic density suggestive of thrombus normal left ventricular function. Repeat MIRACLE on December 16, 2018 showed resolution of the thrombus, underwent electrical cardioversion which was successful in terminating atrial fibrillation return to atrial fibrillation, loaded with amiodarone then had another cardioversion and was successful in resolving atrial fibrillation. Currently all these medication are on hold and I will see him in the office tomorrow and adjust his treatment plan OAC with Eliquis 5mg BID History of multiple DVT Status post hematuria, secondary to kidney stone Carotid stenosis, history of R CEA monitored by [facility] in [place], [place], aorto screen was normal done by [facility] in 2016 Prostate cancer with recurrence, followed by Dr. Weller Hypertension, mildly elevated, keep him off beta blockers and calcium channel blockers and monitor blood pressure, I will consider the use of EH inhibitor and/or ARB as an outpatient Hyperlipidemia, continue to monitor as outpatient. Heterozygous mutation for Factor V Leiden, was found per study October 26, 2011 with one positive allele. Clinical Quality Measures DVT/VTE Risk/Contraindication: Risk Factor Score Per Nursin RFS Level Per Nursing on Admit: 3=High MOE SIMON MD Jan 11, 2020 1:42 pm
--- NOTE | 2020-01-11 13:54 | Discharge Summary ---
LISET ARMENTA, 01/11/20 1354: Diagnosis/Chief Complaint Date of Admission Jan 10, 2020 at 12:14 Date of Discharge Discharge Date: Jan 11, 2020 Admission Diagnosis Bradycardia Primary Care Martin Rubio MD Discharge Diagnosis (1) Symptomatic bradycardia Status: Acute (2) A-fib Status: Chronic Discharge Summary Procedures/Consulations Dr. Jacobs, Cardiology Discharge Physical Exam Allergies: Coded Allergies: No Known Drug Allergies (Unverified , 10/05/19) Vitals & I&Os Vital Signs Date Time Temp Pulse Resp B/P (MAP) Pulse Ox O2 Delivery O2 Flow Rate FiO2 01/11/20 09:00 49 144/77 99 Room Air 01/11/20 03:06 37.0 01/10/20 13:13 17 General Appearance: No Apparent Distress, WD/WN HEENT: PERRL/EOMI Respiratory: Lungs Clear, Normal Breath Sounds Cardiovascular: No Murmur, Bradycardia Extremity: Normal Capillary Refill, Pedal Edema Skin: Normal Color, Warm/Dry Neurologic/Psychiatric: Alert, Oriented x3 Hospital Course Was the Problem List Reviewed?: Yes Admission Diagnosis: Symptomatic bradycardia Type 2 NSTEMI Paroxysmal atrial fibrillation Hypertension Hyperlipidemia Hx of prostate cancer with recurrence and bone metastasis Discharge Diagnosis: As above Hospital Course: Symptomatic bradycardia- Patient presented to the ED for increasing exertional dyspnea, lightheadedness and dizziness for 2-3 days. On admission, was noted to have HR of 36. EKG performed and revealed bradycardia. Patient has been taking metoprolol succinate, amiodraone, and diltiazem for paroxysmal atrial fibrillation. Home medications were stopped and cardiology was consulted. Plan is to continue holding medications and will discuss further treatment plan with Dr. Jacobs at follow-up appointment tomorrow, 01/11. Elevated troponin, likely NSTEMI Type 2 secondary to bradycardia- Elevated troponin on admission of 0.038. EKG revealed bradycardia. Troponin was trended and back to <0.028 on next check. Cardiology was consulted to evaluate. Paroxysmal atrial fibrillation- Patient has history of paroxysmal atrial fibrillation and being treated with metoprolol succinate, amiodarone, and dil tiazem. Diagnosed 1 year ago and required cardioversion at that time. Is on Eliquis for anticoagulation twice daily. Was placed on telemetry during stay. Cardiology consulted as above. Hypertension- History of hypertension but was normotensive throughout stay. Held metoprolol secondary to #1. Hyperlipidemia- Home medications were continued during stay. Hx of prostate cancer with recurrence and bone metastasis- Patient undergoing treatment at cancer center and sees Dr. Blum. Labs (last 24 hrs) Laboratory Tests 01/10/20 17:07: Troponin I < 0.028 01/11/20 03:44: White Blood Count 6.6, Red Blood Count 3.70L, Hemoglobin 11.3L, Hematocrit 35L, Mean Corpuscular Volume 95, Mean Corpuscular Hemoglobin 31, Mean Corpuscular Hemoglobin Concent 32, Red Cell Distribution Width 14.0, Platelet Count 201, Mean Platelet Volume 10.1, Immature Granulocyte % (Auto) 1, Neutrophils (%) (Auto) 76H, Lymphocytes (%) (Auto) 12, Monocytes (%) (Auto) 9, Eosinophils (%) (Auto) 1, Basophils (%) (Auto) 1, Neutrophils # (Auto) 5.0, Lymphocytes # (Auto) 0.8L, Monocytes # (Auto) 0.6, Eosinophils # (Auto) 0.1, Basophils # (Auto) 0.0, Immature Granulocyte # (Auto) 0.0, Sodium Level 140, Potassium Level 4.2, Chloride Level 108H, Carbon Dioxide Level 24, Anion Gap 8, Blood Urea Nitrogen 15, Creatinine 0.89, Estimat Glomerular Filtration Rate > 60, BUN/Creatinine Ratio 17, Glucose Level 92, Calcium Level 8.2L, Phosphorus Level 3.3, Magnesium Level 2.1 Microbiology 01/10/20 MRSA Screen - Final, Complete MRSA not isolated Patient resulted labs reviewed. Imaging: Reviewed Imaging Report Discharge Home Medications: Active Scripts Active Reported Tylenol Arthritis (Acetaminophen) 650 Mg Tablet.er 650-1,300 Mg PO Q8H PRN Calcium (Calcium Carbonate) 500 Mg Tablet 500 Mg PO DAILY Tizanidine HCl 2 Mg Tablet 2-4 Mg PO Q6H PRN Diltiazem 24Hr ER (Diltiazem HCl) 120 Mg Cap.er.24h 125 Mg PO DAILY Amiodarone HCl 200 Mg Tablet 200 Mg PO BID Eliquis (Apixaban) 5 Mg Tablet 5 Mg PO BID Triamterene-Hctz 37.5-25 mg Cp (Triamterene/Hydrochlorothiazid) 1 Each Capsule 1 Cap PO DAILY PRN Metoprolol Succinate 100 Mg Tab.er.24h 100 Mg PO HS Atorvastatin Calcium 40 Mg Tablet 40 Mg PO DAILY Instructions to patient/family Please see electronic discharge instructions given to patient. Clinical Quality Measures DVT/VTE Risk/Contraindication: Risk Factor Score Per Nursin RFS Level Per Nursing on Admit: 3=High VANDANA PAIZ MD 01/12/20 1625: Discharge Summary Discharge Physical Exam Allergies: Coded Allergies: No Known Drug Allergies (Unverified , 10/05/19) Discussion & Recommendations Discharge Planning: >30 minutes discharge planning Supervisory-Addendum Brief Verification & Attestation Participated in pt care: history, MDM, physical Personally performed: exam, history, MDM, supervision of care Care discussed with: Medical Student Procedures: n/a Results interpretation: Verified all documentation Verification and Attestation of Medical Student E/M Service A medical student performed and documented this service in my presence. I reviewed and verified all information documented by the medical student and made modifications to such information, when appropriate. I personally performed the physical exam and medical decision making. Vandana Paiz, Jan 12, 2020,16:25 Problem Qualifiers (1) A-fib: Atrial fibrillation type: paroxysmal Qualified Codes: I48.0 - Paroxysmal atrial fibrillation LISET ARMENTA, Jan 11, 2020 13:54 VANDANA PAIZ MD Jan 12, 2020 16:25
[2020-01-11 14:22] VITALS: BP 162/91
--- NOTE | 2020-01-11 14:22 | NUR ---
PT DISCHARGED HOME WITH ALL PERSONAL BELONGINGS. FOLLOW UP WITH DR SIMON TOMORROW. PT AWARE. NO FURTHER QUESTIONS VOICED.
== END 2020-01-11 14:22 | disposition home or self-care (01) | DRG 281 ==
LOC: EDUNIT# 10:45 → ER 10:47 → ICU 12:14
PROVIDERS: ADMIT Family Medicine; ATTEND Family Medicine
DX: I48.0 Paroxysmal atrial fibrillation (principal); I21.A1 Myocardial infarction type 2; C79.51 Secondary malignant neoplasm of bone; D68.51 Activated protein C resistance; C61 Malignant neoplasm of prostate; I10 Essential (primary) hypertension; E78.5 Hyperlipidemia, unspecified; I25.10 Atherosclerotic heart disease of native coronary artery without angina pectoris; I49.5 Sick sinus syndrome; Z86.718 Personal history of other venous thrombosis and embolism
CPT/HCPCS: 36415; 71045; 80048; 82553; 83735; 84100; 84443; 84484; 85025; 87081; 93005

== ENCOUNTER 2020-03-08 10:20 | Outpatient (RCR) | payer MEDICARE ==
[2019-12-14 09:56] LABS: BASOPHILS % (AUTO) 1 % (0-10); EOSINOPHILS # (AUTO) 0.1 10^3/uL (0.0-0.3); EOSINOPHILS % (AUTO) 2 % (0-10); HEMATOCRIT 38 % (40-54); HEMOGLOBIN 12.4 g/dL (13.3-17.7); LYMPHOCYTES % (AUTO) 15 % (12-44); MEAN CORPUSCULAR HEMOGLOBIN 31 pg (25-34); MEAN CORPUSCULAR HGB CONC 33 g/dL (32-36); MEAN CORPUSCULAR VOLUME 95 fL (80-99); MEAN PLATELET VOLUME 9.6 fL (9.0-12.2); MONOCYTES # (AUTO) 0.7 10^3/uL (0.0-1.0); MONOCYTES % (AUTO) 11 % (0-12); NEUTROPHILS # (AUTO) 4.5 10^3/uL (1.8-7.8); NEUTROPHILS % (AUTO) 71 % (42-75); PLATELET COUNT 219 10^3/uL (130-400); WHITE BLOOD COUNT 6.4 10^3/uL (4.3-11.0)
[2019-12-14 10:19] LABS: ALANINE AMINOTRANSFERASE 31 U/L (0-55); ALKALINE PHOSPHATASE 76 U/L (40-136); BILIRUBIN,TOTAL 0.8 MG/DL (0.1-1.0); BUN/CREATININE RATIO 22; CARBON DIOXIDE 25 MMOL/L (21-32); CHLORIDE 106 MMOL/L (98-107); CREATININE SERUM 0.89 MG/DL (0.60-1.30); GFR ESTIMATED > 60; GLUCOSE 77 MG/DL (70-105); POTASSIUM 4.5 MMOL/L (3.6-5.0); SODIUM 139 MMOL/L (135-145); TOTAL PROTEIN 6.7 GM/DL (6.4-8.2)
[2020-02-06 15:21] LABS: HEMATOCRIT 40 % (40-54); HEMOGLOBIN 13.1 G/DL (13.3-17.7); LYMPHOCYTES % (AUTO) 14 % (12-44); MEAN CORPUSCULAR HEMOGLOBIN 31 PG (25-34); MEAN CORPUSCULAR HGB CONC 33 G/DL (32-36); MEAN CORPUSCULAR VOLUME 93 FL (80-99); MEAN PLATELET VOLUME 9.6 FL (7.4-10.4); NEUTROPHILS % (AUTO) 73 % (42-75); PLATELET COUNT 265 10^3/uL (130-400); WHITE BLOOD COUNT 7.1 10^3/uL (4.3-11.0)
[2020-02-06 15:22] LABS: BASOPHILS % (AUTO) 0 % (0-10); EOSINOPHILS # (AUTO) 0.1 10^3/uL (0.0-0.3); EOSINOPHILS % (AUTO) 1 % (0-10); MONOCYTES # (AUTO) 0.8 X 10^3 (0.0-1.0); MONOCYTES % (AUTO) 11 % (0-12); NEUTROPHILS # (AUTO) 5.2 X 10^3 (1.8-7.8)
[2020-02-06 15:46] LABS: ALBUMIN 4.2 GM/DL (3.2-4.5); BILIRUBIN,TOTAL 0.8 MG/DL (0.1-1.0); CALCIUM 9.3 MG/DL (8.5-10.1); CREATININE SERUM 1.31 MG/DL (0.60-1.30); TOTAL PROTEIN 7.2 GM/DL (6.4-8.2)
[~2020-03-08 10:20] MED LIST changes: -AMIO200T4 PO; +AMIO200T6 PO; +CALC-823 PO; +DILT-27 PO; +ZOLEDRONIC ACID (CANCER CTR) 4 MG in NS (IVPB) CANCER CENTER 100 ML IV SCH
== END 2020-03-13 | disposition home or self-care (01) ==
LOC: ONC 10:20
PROVIDERS: ATTEND Internal Medicine Hematology & Oncology
DX: C61 Malignant neoplasm of prostate (principal); C77.2 Secondary and unspecified malignant neoplasm of intra-abdominal lymph nodes; I73.9 Peripheral vascular disease, unspecified; I65.29 Occlusion and stenosis of unspecified carotid artery; I25.10 Atherosclerotic heart disease of native coronary artery without angina pectoris; E78.2 Mixed hyperlipidemia; I10 Essential (primary) hypertension; I48.0 Paroxysmal atrial fibrillation; I82.409 Acute embolism and thrombosis of unspecified deep veins of unspecified lower extremity; Z90.79 Acquired absence of other genital organ(s); Z98.890 Other specified postprocedural states
CPT/HCPCS: 80053; 84153; 85025; 96365

== ENCOUNTER 2020-05-22 13:52 | Outpatient (RCR) | payer MEDICARE ==
[2020-04-04 09:27] LABS: BASOPHILS % (AUTO) 1 % (0-10); EOSINOPHILS # (AUTO) 0.1 10^3/uL (0.0-0.3); EOSINOPHILS % (AUTO) 2 % (0-10); HEMATOCRIT 39 % (40-54); HEMOGLOBIN 12.7 g/dL (13.3-17.7); LYMPHOCYTES # (AUTO) 1.3 10^3/uL (1.0-4.0); LYMPHOCYTES % (AUTO) 18 % (12-44); MEAN CORPUSCULAR HEMOGLOBIN 31 pg (25-34); MEAN CORPUSCULAR HGB CONC 33 g/dL (32-36); MEAN CORPUSCULAR VOLUME 94 fL (80-99); MEAN PLATELET VOLUME 9.4 fL (9.0-12.2); MONOCYTES # (AUTO) 0.9 10^3/uL (0.0-1.0); MONOCYTES % (AUTO) 13 % (0-12); NEUTROPHILS % (AUTO) 67 % (42-75); PLATELET COUNT 272 10^3/uL (130-400); WHITE BLOOD COUNT 7.4 10^3/uL (4.3-11.0)
[2020-04-04 09:46] LABS: ALANINE AMINOTRANSFERASE 23 U/L (0-55); ALBUMIN 4.1 GM/DL (3.2-4.5); ALKALINE PHOSPHATASE 81 U/L (40-136); BILIRUBIN,TOTAL 0.8 MG/DL (0.1-1.0); BUN/CREATININE RATIO 22; CALCIUM 9.5 MG/DL (8.5-10.1); CARBON DIOXIDE 30 MMOL/L (21-32); CHLORIDE 99 MMOL/L (98-107); CREATININE SERUM 1.04 MG/DL (0.60-1.30); GFR ESTIMATED > 60; GLUCOSE 83 MG/DL (70-105); POTASSIUM 3.9 MMOL/L (3.6-5.0); SODIUM 137 MMOL/L (135-145); TOTAL PROTEIN 7.2 GM/DL (6.4-8.2)
[~2020-05-22 13:52] MED LIST changes: +TIZA-169 PO; -TIZA2TAB7 PO
[2020-05-22 14:26] LABS: BASOPHILS % (AUTO) 0 % (0-10); EOSINOPHILS # (AUTO) 0.1 10^3/uL (0.0-0.3); EOSINOPHILS % (AUTO) 2 % (0-10); HEMATOCRIT 35 % (40-54); HEMOGLOBIN 11.3 g/dL (13.3-17.7); LYMPHOCYTES # (AUTO) 0.8 10^3/uL (1.0-4.0); LYMPHOCYTES % (AUTO) 13 % (12-44); MEAN CORPUSCULAR HEMOGLOBIN 31 pg (25-34); MEAN CORPUSCULAR HGB CONC 32 g/dL (32-36); MEAN CORPUSCULAR VOLUME 97 fL (80-99); MEAN PLATELET VOLUME 9.5 fL (9.0-12.2); MONOCYTES # (AUTO) 0.5 10^3/uL (0.0-1.0); MONOCYTES % (AUTO) 7 % (0-12); NEUTROPHILS # (AUTO) 4.8 10^3/uL (1.8-7.8); NEUTROPHILS % (AUTO) 78 % (42-75); PLATELET COUNT 247 10^3/uL (130-400); WHITE BLOOD COUNT 6.2 10^3/uL (4.3-11.0)
[2020-05-22 14:51] LABS: ALANINE AMINOTRANSFERASE 15 U/L (0-55); ALBUMIN 3.8 GM/DL (3.2-4.5); ALKALINE PHOSPHATASE 68 U/L (40-136); BILIRUBIN,TOTAL 0.5 MG/DL (0.1-1.0); BUN/CREATININE RATIO 18; CALCIUM 8.9 MG/DL (8.5-10.1); CARBON DIOXIDE 25 MMOL/L (21-32); CHLORIDE 104 MMOL/L (98-107); CREATININE SERUM 0.87 MG/DL (0.60-1.30); GFR ESTIMATED > 60; GLUCOSE 105 MG/DL (70-105); POTASSIUM 4.3 MMOL/L (3.6-5.0); SODIUM 137 MMOL/L (135-145); TOTAL PROTEIN 7.1 GM/DL (6.4-8.2)
== END 2020-07-03 | disposition home or self-care (01) ==
LOC: ONC 13:52
PROVIDERS: ATTEND Internal Medicine Hematology & Oncology
DX: C61 Malignant neoplasm of prostate (principal); C77.2 Secondary and unspecified malignant neoplasm of intra-abdominal lymph nodes; I73.9 Peripheral vascular disease, unspecified; I65.29 Occlusion and stenosis of unspecified carotid artery; I25.10 Atherosclerotic heart disease of native coronary artery without angina pectoris; E78.2 Mixed hyperlipidemia; I10 Essential (primary) hypertension; I48.0 Paroxysmal atrial fibrillation; I82.409 Acute embolism and thrombosis of unspecified deep veins of unspecified lower extremity; Z90.79 Acquired absence of other genital organ(s); Z98.890 Other specified postprocedural states
CPT/HCPCS: 80053; 84153; 85025; 96365; 99213

== ENCOUNTER → 2020-05-23 | Outpatient (CLI) | payer MEDICARE ==
[~2020-05-23] MED LIST changes: -ZOLEDRONIC ACID (CANCER CTR) 4 MG in NS (IVPB) CANCER CENTER 100 ML IV SCH
--- NOTE | 2020-05-23 12:05 | Diagnostic Imaging Report ---
PROCEDURE: CT head without contrast. TECHNIQUE: Multiple contiguous axial images were obtained through the brain without the use of intravenous contrast. Auto Exposure Controls were utilized during the CT exam to meet ALARA standards for radiation dose reduction. INDICATION: Posterior headache, prostate carcinoma. FINDINGS: There is no mass, shift of the midline or hemorrhage to suggest an acute intracranial abnormality. The ventricles are not abnormally dilated and stable in size when compared to the prior exam of 10/14/2008. The cortical atrophy and periventricular encephalomalacia seen on the prior study is again evident and not significantly changed. Bilateral basal ganglia calcifications are also again noted. The images through the skull base show that there is dense calcification involving the origin of the basilar artery. This finding was also present on the prior study. The bone windows show no sign of a fracture or of a destructive lesion. The orbits are symmetrical and within normal limits. The sinuses are generally clear. IMPRESSION: 1. There is no evidence for an acute intracranial abnormality. 2. If clinical concern regarding an underlying abnormality persists, then MRI would be recommended for further study. MRA of the intracranial contents may also provide additional information. Dictated by: Dictated on workstation # [id number]
== END ==
LOC: RAD 11:45
PROVIDERS: ATTEND Internal Medicine
DX: C61 Malignant neoplasm of prostate (principal); C79.51 Secondary malignant neoplasm of bone; R51.9 Headache, unspecified
CPT/HCPCS: 70450

== ENCOUNTER 2020-07-30 10:49 | Outpatient (RCR) | payer MEDICARE ==
[2020-07-24 11:00] LABS: BASOPHILS % (AUTO) 1 % (0-10); EOSINOPHILS # (AUTO) 0.1 10^3/uL (0.0-0.3); EOSINOPHILS % (AUTO) 1 % (0-10); HEMATOCRIT 42 % (40-54); HEMOGLOBIN 13.3 g/dL (13.3-17.7); LYMPHOCYTES % (AUTO) 14 % (12-44); MEAN CORPUSCULAR HEMOGLOBIN 31 pg (25-34); MEAN CORPUSCULAR HGB CONC 32 g/dL (32-36); MEAN CORPUSCULAR VOLUME 97 fL (80-99); MEAN PLATELET VOLUME 9.6 fL (9.0-12.2); MONOCYTES # (AUTO) 0.6 10^3/uL (0.0-1.0); MONOCYTES % (AUTO) 9 % (0-12); NEUTROPHILS # (AUTO) 5.1 10^3/uL (1.8-7.8); NEUTROPHILS % (AUTO) 75 % (42-75); PLATELET COUNT 256 10^3/uL (130-400); WHITE BLOOD COUNT 6.8 10^3/uL (4.3-11.0)
[2020-07-24 11:27] LABS: ALANINE AMINOTRANSFERASE 16 U/L (0-55); ALBUMIN 4.3 GM/DL (3.2-4.5); ALKALINE PHOSPHATASE 72 U/L (40-136); BILIRUBIN,TOTAL 0.9 MG/DL (0.1-1.0); BUN/CREATININE RATIO 14; CALCIUM 9.5 MG/DL (8.5-10.1); CARBON DIOXIDE 29 MMOL/L (21-32); CHLORIDE 103 MMOL/L (98-107); CREATININE SERUM 0.87 MG/DL (0.60-1.30); GFR ESTIMATED > 60; GLUCOSE 102 MG/DL (70-105); POTASSIUM 4.2 MMOL/L (3.6-5.0); SODIUM 139 MMOL/L (135-145); TOTAL PROTEIN 7.4 GM/DL (6.4-8.2)
[~2020-07-30 10:49] MED LIST changes: -DRON400T2 PO; +DRON400T6 PO; -SULF1TAB35 PO; +SULF1TAB38 PO; +ZOLEDRONIC ACID (CANCER CTR) 4 MG in NS (IVPB) CANCER CENTER 100 ML IV SCH
== END 2020-10-22 | disposition home or self-care (01) ==
LOC: ONC 10:49
PROVIDERS: ATTEND Internal Medicine Hematology & Oncology
DX: C61 Malignant neoplasm of prostate (principal); C79.51 Secondary malignant neoplasm of bone; D50.9 Iron deficiency anemia, unspecified; I73.9 Peripheral vascular disease, unspecified; I65.29 Occlusion and stenosis of unspecified carotid artery; I25.10 Atherosclerotic heart disease of native coronary artery without angina pectoris; E78.2 Mixed hyperlipidemia; I10 Essential (primary) hypertension; I48.0 Paroxysmal atrial fibrillation; I82.409 Acute embolism and thrombosis of unspecified deep veins of unspecified lower extremity; Z90.79 Acquired absence of other genital organ(s); Z98.890 Other specified postprocedural states; Z79.01 Long term (current) use of anticoagulants; Z79.891 Long term (current) use of opiate analgesic; Z79.899 Other long term (current) drug therapy; C77.2 Secondary and unspecified malignant neoplasm of intra-abdominal lymph nodes; Z87.891 Personal history of nicotine dependence
CPT/HCPCS: 80053; 84153; 85025; 99213

== ENCOUNTER 2021-01-10 15:04 | Emergency (ER) | payer MEDICARE ==
[~2021-01-10] VITALS: Ht 188 cm; Wt 99.0 kg
[~2021-01-10 15:04] MED LIST changes: -ZOLEDRONIC ACID (CANCER CTR) 4 MG in NS (IVPB) CANCER CENTER 100 ML IV SCH
[2021-01-10] MEDS ORDERED: LIDOCAINE UROJET 2% GEL 10 ML PKG TOP ONE (15:15)
[2021-01-10 15:58] LABS: CLARITY,URINE OTHER; COLOR,URINE RED; GLUCOSE, URINE (UA) 1+ (NEGATIVE); KETONES,URINE 2+ (NEGATIVE); LEUKOCYTE ESTERASE ,URINE 3+ (NEGATIVE); NITRITE,URINE POSITIVE (NEGATIVE); PROTEIN,URINE 3+ (NEGATIVE)
[2021-01-10 16:02] LABS: BASOPHILS % (AUTO) 1 % (0-10); EOSINOPHILS # (AUTO) 0.1 10^3/uL (0.0-0.3); EOSINOPHILS % (AUTO) 2 % (0-10); HEMATOCRIT 34 % (40-54); LYMPHOCYTES # (AUTO) 0.7 10^3/uL (1.0-4.0); LYMPHOCYTES % (AUTO) 15 % (12-44); MEAN CORPUSCULAR HEMOGLOBIN 31 pg (25-34); MEAN CORPUSCULAR HGB CONC 33 g/dL (32-36); MEAN CORPUSCULAR VOLUME 94 fL (80-99); MEAN PLATELET VOLUME 9.5 fL (9.0-12.2); MONOCYTES # (AUTO) 0.4 10^3/uL (0.0-1.0); MONOCYTES % (AUTO) 9 % (0-12); NEUTROPHILS # (AUTO) 3.6 10^3/uL (1.8-7.8); NEUTROPHILS % (AUTO) 73 % (42-75); PLATELET COUNT 240 10^3/uL (130-400); WHITE BLOOD COUNT 4.9 10^3/uL (4.3-11.0)
[2021-01-10 16:17] LABS: BACTERIA,URINE LARGE /HPF; RBC,URINE TNTC /HPF; WBC,URINE TNTC /HPF
[2021-01-10 16:19] LABS: CALCIUM 9.3 MG/DL (8.5-10.1)
[2021-01-10 16:19] LABS: BILIRUBIN,URINE 3+ (NEGATIVE)
[2021-01-10 16:24] LABS: CREATININE SERUM 0.92 MG/DL (0.60-1.30)
--- NOTE | 2021-01-10 16:27 | ED GU-Female ---
General Chief Complaint: - Reproductive Stated Complaint: UNABLE TO URINATE Nursing Triage Note: PT AMB TO RM 5 W REPORTS OF INABILITY TO URINATE SX 0200 THIS AM. PT APPEARS TO HAVE BEEN INCONTINENT ON HIS WAY HERE AND VOIDED APPROX 15CC DURING TRIAGE. PT HAS BEEN NOTICING BLOOD IN HIS URINE SX YESTERDAY EVENING. PT REPORTS BURNING AND PAIN IN HIS PENIS WHEN HE IS TRYING TO URINATE BUT DENIES PAIN AT THIS TIME. PT A&OX4. Source: patient Exam Limitations: no limitations (LONNIE JIMENEZ APRN) History of Present Illness Date Seen by Provider: Jan 10, 2021 Time Seen by Provider: 16:20 Initial Comments To ER with reports of inability to urinate since this morning. History of urethral stricture for which she follows with Dr. Portillo and has recently been referred to the [facility]. Today he noticed some bloody urine and inability to urinate. However he did urinate on the way to the hospital accidentally. He was then able to urinate here which was mostly blood. Post void residual bladder scan showed only 138 mL. He takes Eliquis 5mg po BID for afib. He has some intermittent spasm type pain of the bladder about every 5 minutes. Timing/Duration: constant Severity/Quality: moderate Location: suprapubic Radiation: none Activities at Onset: none Prior Genitourinary Problems: none (LONNIE JIMENEZ APRN) Allergies and Home Medications Allergies Coded Allergies: No Known Drug Allergies (Unverified , 10/05/19) Patient Home Medication List Home Medication List Reviewed: Yes (LONNIE JIMENEZ APRN) Acetaminophen (Tylenol Arthritis) 650 Mg Tablet.er, 650-1,300 MG PO Q8H PRN for PAIN-MILD (1-4), (Reported) Entered as Reported by: KAREN BROWN on 01/10/20 1601 Apixaban (Eliquis) 5 Mg Tablet, 5 MG PO BID, (Reported) Entered as Reported by: KAREN BROWN on 01/10/20 1501 Atorvastatin Calcium (Atorvastatin Calcium) 40 Mg Tablet, 40 MG PO DAILY, (Reported) Entered as Reported by: SOFI HURT on 10/26/18 1116 Calcium Carbonate (Calcium) 500 Mg Tablet, 500 MG PO DAILY, (Reported) Entered as Reported by: KAREN BROWN on 01/10/20 1601 Levofloxacin (Levofloxacin) 500 Mg Tablet, 500 MG PO DAILY Prescribed by: LONNIE JIMENEZ on 01/10/21 1819 Tizanidine HCl (Tizanidine HCl) 2 Mg Tablet, 2-4 MG PO Q6H PRN for MUSCLE SPASMS, (Reported) Entered as Reported by: KAREN BROWN on 01/10/20 1507 Triamterene/Hydrochlorothiazid (Triamterene-Hctz 37.5-25 mg Cp) 1 Each Capsule, 1 CAP PO DAILY PRN for SWELLING, (Reported) Entered as Reported by: SOFI HURT on 10/26/18 1116 Review of Systems Review of Systems Constitutional: see HPI EENTM: see HPI Respiratory: no symptoms reported Cardiovascular: no symptoms reported Genitourinary: see HPI Musculoskeletal: no symptoms reported Skin: no symptoms reported Psychiatric/Neurological: No Symptoms Reported Endocrine: No Symptoms Reported (LONNIE JIMENEZ APRN) Past Brkvbpw-Dpxean-Xqwcmf Hx Patient Social History Tobacco Use?: No Use of E-Cig and/or Vaping dev: No Substance use?: No Alcohol Use?: No (LONNIE JIMENEZ APRN) Immunizations Up To Date First/Initial COVID19 Vaccinat: 04/07/2020 Second COVID19 Vaccination Erasto: 04/28/2020 Third COVID19 Vaccination Date: 11/05/2020 COVID19 Vaccine Linotype Mechanic: [facility] (LONNIE JIMENEZ APRN) Seasonal Allergies Seasonal Allergies: No (LONNIE JIMENEZ APRN) Past Medical History Surgery/Hospitalization HX: SX: PROSTATE REMOVAL, CAROTID CATH 2006, RIGHT KNEE REPLACEMENT 2008, URETHRA SURGERY PMH: PROSTATE CANCER 2004, AFIB HX (SHOCKED INTO RHYTHM) Surgeries: Yes (RIGHT KNEE REPLACEMENT, CAROTID ARTERY, ) Orthopedic, Prostatectomy, Vascular Surgery Respiratory: No Currently Using CPAP: No Currently Using BIPAP: No Cardiac: Yes (HX AFIB) Atrial Fibrillation, Deep Vein Thrombosis, High Cholesterol, Hypertension Neurological: No Reproductive Disorders: No Sexually Transmitted Disease: No HIV/AIDS: No Genitourinary: Yes Gastrointestinal: No Musculoskeletal: Yes (back ) Arthritis Endocrine: No HEENT: Yes (GLASSES) Loss of Vision: Denies Hearing Impairment: Hard of Hearing, Bilateral Hearing Aide Cancer: Yes Prostate Did You Recieve Any Treatments: Yes What Type of Treatment Did You: Radiation Psychosocial: No Integumentary: No Blood Disorders: No Adverse Reaction/Blood Tranf: No (N/A) (LONNIE JIMENEZ APRN) Family Medical History Cardiomyopathy 19 FATHER Diabetes mellitus paternal grandmother maternal grandmother FH: breast cancer 19 MOTHER Physical Exam Vital Signs Vital Signs - First Documented 01/10/21 15:10 Temp 36.4 Pulse 81 Resp 20 B/P (MAP) 150/80 (103) Pulse Ox 99 O2 Delivery Room Air (MANE MERLOS MD) Vital Signs Capillary Refill : Less Than 3 Seconds (LONNIE JIMENEZ APRN) Height, Weight, BMI Height: 6'2.00" Weight: 213lbs. 13.4oz. 96.571462xm; 28.00 BMI Method: General Appearance: WD/WN, no apparent distress HEENT: PERRL/EOMI, normal ENT inspection Neck: non-tender, full range of motion Respiratory: no respiratory distress, no accessory muscle use Gastrointestinal: normal bowel sounds, non tender, soft Extremities: normal range of motion, non-tender Neurologic/Psychiatric: alert, normal mood/affect, oriented x 3 Skin: normal color, warm/dry (LONNIE JIMENEZ APRN) Progress/Results/Core Measures Suspected Sepsis SIRS Temperature: Pulse: 81 Respiratory Rate: 20 Laboratory Tests 01/10/21 15:50: White Blood Count 4.9 Blood Pressure 150 /80 Mean: 103 Laboratory Tests 01/10/21 15:50: Creatinine 0.92, Platelet Count 240 (LONNIE JIMENEZ APRN) Results/Orders Lab Results Laboratory Tests Test 01/10/21 15:20 01/10/21 15:50 Range/Units Urine Color RED H Urine Clarity OTHER Urine pH 7.0 5-9 Urine Specific [place] 1.020 1.016-1.022 Urine Protein 3+ H NEGATIVE Urine Glucose (UA) 1+ H NEGATIVE Urine Ketones 2+ H NEGATIVE Urine Nitrite POSITIVE H NEGATIVE Urine Bilirubin 3+ H NEGATIVE Urine Urobilinogen >=8.0 < = 1.0 MG/DL Urine Leukocyte Esterase 3+ H NEGATIVE Urine RBC (Auto) 3+ H NEGATIVE Urine RBC TNTC H /HPF Urine WBC TNTC H /HPF Urine Crystals NONE /LPF Urine Bacteria LARGE H /HPF Urine Casts NONE /LPF Urine Mucus NEGATIVE /LPF Urine Culture Indicated YES White Blood Count 4.9 4.3-11.0 10^3/uL Red Blood Count 3.58 L 4.30-5.52 10^6/uL Hemoglobin 11.0 L 13.3-17.7 g/dL Hematocrit 34 L 40-54 % Mean Corpuscular Volume 94 80-99 fL Mean Corpuscular Hemoglobin 31 25-34 pg Mean Corpuscular Hemoglobin Concent 33 32-36 g/dL Red Cell Distribution Width 14.5 10.0-14.5 % Platelet Count 240 130-400 10^3/uL Mean Platelet Volume 9.5 9.0-12.2 fL Immature Granulocyte % (Auto) 0 % Neutrophils (%) (Auto) 73 42-75 % Lymphocytes (%) (Auto) 15 12-44 % Monocytes (%) (Auto) 9 0-12 % Eosinophils (%) (Auto) 2 0-10 % Basophils (%) (Auto) 1 0-10 % Neutrophils # (Auto) 3.6 1.8-7.8 10^3/uL Lymphocytes # (Auto) 0.7 L 1.0-4.0 10^3/uL Monocytes # (Auto) 0.4 0.0-1.0 10^3/uL Eosinophils # (Auto) 0.1 0.0-0.3 10^3/uL Basophils # (Auto) 0.0 0.0-0.1 10^3/uL Immature Granulocyte # (Auto) 0.0 0.0-0.1 10^3/uL Sodium Level 142 135-145 MMOL/L Potassium Level 4.0 3.6-5.0 MMOL/L Chloride Level 107 98-107 MMOL/L Carbon Dioxide Level 24 21-32 MMOL/L Anion Gap 11 5-14 MMOL/L Blood Urea Nitrogen 16 7-18 MG/DL Creatinine 0.92 0.60-1.30 MG/DL Estimat Glomerular Filtration Rate 79 BUN/Creatinine Ratio 17 Glucose Level 118 H 70-105 MG/DL Calcium Level 9.3 8.5-10.1 MG/DL (MANE MERLOS MD) Medications Given in ED Current Medications Medications Dose Ordered Sig/Tony Route Start Time Stop Time Status Last Admin Dose Admin Ceftriaxone Sodium 1000 mg/ Sterile Water 10 ml @ 200 mls/hr ONCE ONCE IV 01/10/21 16:30 10/21/21 16:32 DC 01/10/21 16:31 200 MLS/HR Phenazopyridine HCl 100 mg ONCE ONCE PO 01/10/21 16:30 01/10/21 16:31 DC 01/10/21 16:31 100 MG (MANE MERLOS MD) Vital Signs/I&O 01/10/21 01/10/21 15:10 19:12 Temp 36.4 Pulse 81 80 Resp 20 18 B/P (MAP) 150/80 (103) 119/61 Pulse Ox 99 99 O2 Delivery Room Air Room Air (MANE MERLOS MD) Vital Signs/I&O Capillary Refill : Less Than 3 Seconds (LONNIE JIMENEZ APRN) Blood Pressure Mean: 103 Departure Communication (Admissions) Grossly bloody urine without obvious clot on urine sample. We will plan to hydrate, empirically give Rocephin, Pyridium and if he is unable to urinate we will have to discuss catheter placement. 1856-received the Rocephin and 1 L fluid bolus here. Then attempted to urinate in the bathroom but was unable to do so. Bladder scan revealed 394 mL in the bladder. He had severe bladder cramping but unable to urinate. Then suddenly h e was able to urinate and peed about 325 mL of grossly bloody urine without clots in it. He had an attempt at cystoscopy in the office with Dr. Portillo last week but he was unable to pass the scope due to a urethral stricture and the patient himself is hesitant to attempt catheter placement as it may not be successful. This is a reasonable concern. Since he is able to urinate he would prefer to go on home without a catheter and return for any worsening. I did send in some Levaquin to [facility] pharmacy that he will start tomorrow. He will return overnight for any worsening symptoms. (LONNIE JIMENEZ APRN) Impression Primary Impression: Urinary tract infection Additional Impression: Hematuria Disposition: 01 HOME, SELF-CARE Condition: Stable Departure-Patient Inst. Decision time for Depature: 18:18 (LONNIE JIMENEZ APRN) Referrals: MARIO ESTEVEZ MD (PCP/Family) Primary Care Physician Patient Instructions: Blood in Urine (Hematuria), Adult ED, Urinary Tract Infection, Adult (DC) Add. Discharge Instructions: . Increase water intake 2. Return to ER for any concerns 3. Antibiotic as directed starting tomorrow. All discharge instructions reviewed with patient and/or family. Voiced understanding. Scripts Levofloxacin (Levofloxacin) 500 Mg Tablet 500 MG PO DAILY, #7 TAB Prov: LONNIE JIMENEZ APRN 01/10/21 ATTENDING PHYSICIAN NOTE: I was physically present as attending physician in the emergency department during the care of this patient, but I was not directly involved in the decision making or delivery of care for this patient. (MANE MERLOS MD) Copy Copies To 1: RUBIN PORTILLO MD, PETER J APRN Jan 10, 2021 16:27 MANE MERLOS MD Jan 10, 2021 20:12
[2021-01-10] MEDS ORDERED: cefTRIAXone 1,000 MG in WATER (STERILE) FOR INJECTION 10 ML IV ONE (16:30)
[2021-01-10] MEDS ORDERED: PHENAZOPYRIDINE 100 MG (PYRIDIUM) TABLET PO ONE (16:30)
[2021-01-10] MEDS ORDERED: LACTATED RINGERS 1,000 ML IV SCH (16:30)
[2021-01-10] MEDS ORDERED: LEVO500T80 PO (18:19)
[2021-01-10 19:12] VITALS: BP 119/61
== END 2021-01-10 19:12 | disposition home or self-care (01) ==
LOC: EDUNIT# 15:04 → ER 15:05
DX: N39.0 Urinary tract infection, site not specified (principal); R31.9 Hematuria, unspecified; I10 Essential (primary) hypertension; I48.91 Unspecified atrial fibrillation; E78.00 Pure hypercholesterolemia, unspecified; Z79.01 Long term (current) use of anticoagulants; Z79.899 Other long term (current) drug therapy
CPT/HCPCS: 36415; 80048; 81000; 85025; 87088

== ENCOUNTER → 2021-01-30 | Outpatient (CLI) | payer MEDICARE ==
[~2021-01-30] MED LIST changes: +LEVO500T80 PO
[2021-01-30 14:34] LABS: ALBUMIN 3.9 GM/DL (3.2-4.5)
[2021-01-30 14:35] LABS: CALCIUM 9.2 MG/DL (8.5-10.1)
[2021-01-30 14:36] LABS: TOTAL PROTEIN 6.5 GM/DL (6.4-8.2)
[2021-01-30 14:38] LABS: BILIRUBIN,TOTAL 0.7 MG/DL (0.1-1.0)
[2021-01-30 14:40] LABS: CREATININE SERUM 0.84 MG/DL (0.60-1.30)
--- NOTE | 2021-01-30 14:50 | Diagnostic Imaging Report ---
INDICATION: Hyperlipidemia. TIME OF EXAM: 2:31 PM. COMPARISON: Correlation is made with the prior chest from 04/16/2009. FINDINGS: There appear to be calcified granulomas in the left base. The heart size is normal. The lungs are clear. No infiltrates are seen. There is no effusion or pneumothorax. IMPRESSION: No acute cardiopulmonary process is detected. Dictated by: Dictated on workstation # [id number]
== END ==
LOC: RAD 13:56
PROVIDERS: ATTEND Physician Assistant
DX: E78.2 Mixed hyperlipidemia (principal)
CPT/HCPCS: 36415; 71046; 80053; 80061; 84443

== ENCOUNTER → 2021-02-18 | Outpatient (CLI) | payer MEDICARE ==
[~2021-02-18] MED LIST changes: -AMIO200T6 PO; +AMIO200T65 PO; -LEVO500T80 PO; +LEVO500T81 PO
== END ==
LOC: CARD 15:00
PROVIDERS: ATTEND Physician Assistant
DX: I11.9 Hypertensive heart disease without heart failure (principal); I34.0 Nonrheumatic mitral (valve) insufficiency; I25.10 Atherosclerotic heart disease of native coronary artery without angina pectoris; E78.2 Mixed hyperlipidemia
CPT/HCPCS: 93306

== ENCOUNTER 2021-05-02 10:12 | Emergency (ER) | payer MEDICARE ==
[~2021-05-02] VITALS: Ht 185 cm; Wt 100.0 kg
--- NOTE | 2021-05-02 10:49 | ED Syncope ---
General Chief Complaint: Dizziness/Syncope Stated Complaint: SYNCOPAL EPISODE Nursing Triage Note: PT AMB TO RM 5 PT CO OF SYNCOPAL EPISODE, FELL BACK AND HIT WALL. STATES HEARD HIM FALL AND WENT UP STAIRS, WAS ON FLOOR. STATES SHE DID NOT FEEL A PULSE. PT AWAKE AND ALERT. CALLED NEIGHBOR AND BROUGHT TO HOSPITAL. PT CO OF WEAKNESS AND STATES HAS A LITTLE SORENESS OF NECK. C COLLAR APPLIED IN TRIAGE. PT ALSO HAS ABRASION ON TOP OF L FOOT Source of Information: Patient Exam Limitations: No Limitations History of Present Illness Date Seen by Provider: May 02, 2021 Time Seen by Provider: 10:44 Initial Comments To ER by private vehicle with reports of a syncopal event at about 10 AM this morning. He awakened at 5 AM and was feeling fine. He was upstairs sitting in his chair, his was downstairs. She heard a thud and went upstairs and found him on the floor. She states that he was clammy and had a very faint pulse. Patient himself does not recall what happened whether he stood up too fast or just passed out while sitting. He felt fine upon awakening this morning and currently has a little bit of a neck ache and some pain to his left great toe where there is an abrasion from striking it on something. He feels globally slightly weak but not concerning to him. He has a history of paroxysmal atrial fibrillation for which she underwent electrical cardioversion in 2023 an episode of rapid ventricular response. He has history of peripheral artery disease, coronary artery disease, hypertension, hyperlipidemia, recurrent DVT. He is maintained on Eliquis 5 mg twice daily. 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 Lopez. He follows with Dr. Jacobs from cardiology and Dr. Rubio from primary care. Timing/Prior Episodes: Recent History Precipitating Factors: Other (Unsure) Loss of Consciousness: Brief (Seconds) Current Symptoms: Weakness Allergies and Home Medications Allergies Coded Allergies: No Known Drug Allergies (Unverified , 10/05/19) Patient Home Medication List Home Medication List Reviewed: Yes Acetaminophen (Tylenol Arthritis) 650 Mg Tablet.er, 650-1,300 MG PO Q8H PRN for PAIN-MILD (1-4), (Reported) Entered as Reported by: KAREN BROWN on 01/10/20 1601 Apixaban (Eliquis) 5 Mg Tablet, 5 MG PO BID, (Reported) Entered as Reported by: KAREN BROWN on 01/10/20 1501 Atorvastatin Calcium (Atorvastatin Calcium) 40 Mg Tablet, 40 MG PO DAILY, (Reported) Entered as Reported by: SOFI HURT on 10/26/18 1116 Calcium Carbonate (Calcium) 500 Mg Tablet, 500 MG PO DAILY, (Reported) Entered as Reported by: KAREN BROWN on 01/10/20 1601 Levofloxacin (Levofloxacin) 500 Mg Tablet, 500 MG PO DAILY Prescribed by: LONNIE JIMENEZ on 01/10/21 1819 Tizanidine HCl (Tizanidine HCl) 2 Mg Tablet, 2-4 MG PO Q6H PRN for MUSCLE SPASMS, (Reported) Entered as Reported by: KAREN BROWN on 01/10/20 1507 Triamterene/Hydrochlorothiazid (Triamterene-Hctz 37.5-25 mg Cp) 1 Each Capsule, 1 CAP PO DAILY PRN for SWELLING, (Reported) Entered as Reported by: SOFI HURT on 10/26/18 1116 Review of Systems Constitutional: see HPI EENTM: see HPI Respiratory: no symptoms reported Cardiovascular: no symptoms reported Genitourinary: no symptoms reported Musculoskeletal: no symptoms reported; No back pain, No joint pain Skin: no symptoms reported Psychiatric/Neurological: No Symptoms Reported Past Iaqscxo-Kprqfz-Mgcfqr Hx Patient Social History Tobacco Use?: No Substance use?: No Alcohol Use?: No Pt feels they are or have been: No Immunizations Up To Date First/Initial COVID19 Vaccinat: 2020 Second COVID19 Vaccination Erasto: 2020 Third COVID19 Vaccination Date: 11/05/2020 Seasonal Allergies Seasonal Allergies: No Past Medical History Surgery/Hospitalization HX: SX: PROSTATE REMOVAL, CAROTID CATH 2006, RIGHT KNEE REPLACEMENT 2008, URETHRA SURGERY PMH: PROSTATE CANCER 2004, AFIB HX (SHOCKED INTO RHYTHM) Surgeries: Yes (RIGHT KNEE REPLACEMENT, CAROTID ARTERY, ) Orthopedic, Prostatectomy, Vascular Surgery Respiratory: No Currently Using CPAP: No Currently Using BIPAP: No Cardiac: Yes (HX AFIB) Atrial Fibrillation, Deep Vein Thrombosis, High Cholesterol, Hypertension Neurological: No Reproductive Disorders: No Sexually Transmitted Disease: No HIV/AIDS: No Genitourinary: Yes Gastrointestinal: No Musculoskeletal: Yes (back ) Arthritis Endocrine: No HEENT: Yes (GLASSES) Loss of Vision: Denies Hearing Impairment: Hard of Hearing, Bilateral Hearing Aide Cancer: Yes Prostate Did You Recieve Any Treatments: Yes What Type of Treatment Did You: Radiation Psychosocial: No Integumentary: No Blood Disorders: No Adverse Reaction/Blood Tranf: No (N/A) Family Medical History Cardiomyopathy 19 FATHER Diabetes mellitus paternal grandmother maternal grandmother FH: breast cancer 19 MOTHER Physical Exam Vital Signs Vital Signs - First Documented 05/02/21 10:25 Temp 36.7 Pulse 55 Resp 18 B/P (MAP) 103/62 (76) Pulse Ox 96 O2 Delivery Room Air Capillary Refill : Less Than 3 Seconds Height, Weight, BMI Height: 6'2.00" Weight: 213lbs. 13.4oz. 96.049871ln; 29.00 BMI Method: General Appearance: No Apparent Distress, WD/WN Neck: Full Range of Motion, Normal Inspection Cardiovascular: Normal Peripheral Pulses, Bradycardia (EKG shows atrial fibrillation rate of 66. Borderline prolonged QT interval at [address] segment changes. He is alert and oriented GCS 15 with a blood pressure of 100/60.), Irregularly Irregular Respiratory: No Accessory Muscle Use, No Respiratory Distress Gastrointestinal: Normal Bowel Sounds, Non Tender, Soft Extremities: Normal Capillary Refill, Normal Inspection Neurologic/Psychiatric: Alert, Oriented x3 Cranial Nerves: Normal Hearing, Normal Speech, PERRL Skin: Normal Color, Warm/Dry Progress/Results/Core Measures Results/Orders Lab Results Laboratory Tests Test 05/02/21 10:33 Range/Units White Blood Count 6.5 4.3-11.0 10^3/uL Red Blood Count 4.13 L 4.30-5.52 10^6/uL Hemoglobin 11.1 L 13.3-17.7 g/dL Hematocrit 36 L 40-54 % Mean Corpuscular Volume 87 80-99 fL Mean Corpuscular Hemoglobin 27 25-34 pg Mean Corpuscular Hemoglobin Concent 31 L 32-36 g/dL Red Cell Distribution Width 15.9 H 10.0-14.5 % Platelet Count 249 130-400 10^3/uL Mean Platelet Volume 9.9 9.0-12.2 fL Immature Granulocyte % (Auto) 1 % Neutrophils (%) (Auto) 74 42-75 % Lymphocytes (%) (Auto) 14 12-44 % Monocytes (%) (Auto) 10 0-12 % Eosinophils (%) (Auto) 2 0-10 % Basophils (%) (Auto) 1 0-10 % Neutrophils # (Auto) 4.8 1.8-7.8 10^3/uL Lymphocytes # (Auto) 0.9 L 1.0-4.0 10^3/uL Monocytes # (Auto) 0.6 0.0-1.0 10^3/uL Eosinophils # (Auto) 0.1 0.0-0.3 10^3/uL Basophils # (Auto) 0.1 0.0-0.1 10^3/uL Immature Granulocyte # (Auto) 0.0 0.0-0.1 10^3/uL Prothrombin Time 16.7 H 12.2-14.7 SEC INR Comment 1.3 0.8-1.4 Activated Partial Thromboplast Time 30 24-35 SEC Sodium Level 137 135-145 MMOL/L Potassium Level 4.5 3.6-5.0 MMOL/L Chloride Level 104 98-107 MMOL/L Carbon Dioxide Level 23 21-32 MMOL/L Anion Gap 10 5-14 MMOL/L Blood Urea Nitrogen 17 7-18 MG/DL Creatinine 0.95 0.60-1.30 MG/DL Estimat Glomerular Filtration Rate 81 BUN/Creatinine Ratio 18 Glucose Level 106 H 70-105 MG/DL Calcium Level 9.2 8.5-10.1 MG/DL Corrected Calcium 9.2 8.5-10.1 MG/DL Magnesium Level 2.1 1.6-2.4 MG/DL Total Bilirubin 0.6 0.1-1.0 MG/DL Aspartate Amino Transf (AST/SGOT) 17 5-34 U/L Alanine Aminotransferase (ALT/SGPT) 11 0-55 U/L Alkaline Phosphatase 79 40-136 U/L Myoglobin 496.9 H 10.0-92.0 NG/ML Troponin I < 0.028 <0.028 NG/ML B-Type Natriuretic Peptide 198.7 H <100.0 PG/ML Total Protein 6.9 6.4-8.2 GM/DL Albumin 4.0 3.2-4.5 GM/DL My Orders Orders - LONNIE JIMENEZ PENCIL MAKER Cbc With Automated Diff (05/02/21 10:39) Magnesium (05/02/21 10:39) Chest 1 View, Ap/Pa Only (05/02/21 10:39) Ekg Tracing (05/02/21 10:39) Comprehensive Metabolic Panel (05/02/21 10:39) Myoglobin Serum (05/02/21 10:39) Protime With Inr (05/02/21 10:39) Partial Thromboplastin Time (05/02/21 10:39) O2 (05/02/21 10:39) Monitor-Rhythm Ecg Trace Only (05/02/21 10:39) Lipid Panel (05/03/21 06:00) Ed Iv/Invasive Line Start (05/02/21 10:39) Bnp [place] (05/02/21 10:39) Troponin I [place] (05/02/21 10:39) Ct Head/Cervical Spine Wo (05/02/21 10:39) Vital Signs/I&O 05/02/21 05/02/21 10:25 11:52 Temp 36.7 Pulse 55 54 58 57 Resp 18 B/P (MAP) 103/62 (76) 116/79 (91) 107/63 (78) 111/61 (78) Pulse Ox 96 O2 Delivery Room Air Blood Pressure Mean: 76 Departure Communication (Admissions) 1148-asymptomatic still. Rigid cervical collar removed at this time. Orthostatic blood pressures checked without a change in heart rate or blood pressure. Spoke with Dr. Rubio, recommends follow-up with cardiology. Spoke with Dr. Jacobs and hed like to see the patient sometime next week. Family Conversation NAME: ARIEL BARAKAT [facility] REC#: [id number] PT STATUS: REG ER : 1940 PHYSICIAN: LONNIE JIMENEZ APRN ADMIT DATE: 05/02/21/ER Draft Date of Exam:05/02/21 CT HEAD/CERVICAL SPINE WO PROCEDURE: CT head and CT cervical spine without contrast. TECHNIQUE: Multiple contiguous axial images were obtained through the brain and cervical spine without the use of intravenous contrast. Sagittal and coronal reformations through the cervical spine were then performed. Auto Exposure Controls were utilized during the CT exam to meet ALARA standards for radiation dose reduction. INDICATION: Syncopal episode and fall with head and neck injury. Correlation is made with prior CT from 05/23/2020. CT HEAD: The ventricles and sulci are stable in appearance. There is extensive periventricular low-attenuation consistent with chronic microvascular ischemia. There is no sulcal effacement. No midline shift is identified. No acute intra-axial or extra-axial hemorrhage is detected. Cisterns are patent. Visualized paranasal sinuses are clear. IMPRESSION: Changes of chronic microvascular ischemia. No acute intracranial process is detected. CT CERVICAL SPINE: Curvature of the cervical spine is normal. There is minimal retrolisthesis of C3 on C4. There is multilevel degenerative disc disease with variable disc space narrowing and marginal spurring. No fractures are identified. Prevertebral tissues are within normal limits. Odontoid is intact. IMPRESSION: Cervical spondylosis. No acute bony abnormality is detected. Dictated on workstation # [id number] Dict: 05/02/21 1131 Trans: 05/02/21 1140 CVB [id number] Interpreted by: ISHMAEL CAPONE MD Electronically signed by: NAME: ARIEL BARAKAT [facility] REC#: [id number] PT STATUS: REG ER : 1940 PHYSICIAN: LONNIE JIMENEZ APRN ADMIT DATE: 05/02/21/ER Draft Date of Exam:05/02/21 CHEST 1 VIEW, AP/PA ONLY INDICATION: Syncope. Portable chest 11:14 AM FINDINGS: Heart size and pulmonary vascularity are normal. Lungs are clear. There are no effusions or pneumothoraces. IMPRESSION: Negative chest. Dictated on workstation # [id number] Dict: 05/02/21 1125 Trans: 05/02/21 1129 [id number] Interpreted by: LEVAR LEE MD Electronically signed by: Impression Primary Impression: Syncope Disposition: 01 HOME, SELF-CARE Condition: Stable Departure-Patient Inst. Decision time for Depature: 11:56 Referrals: MARIO RUBIO MD (PCP/Family) Primary Care Physician Patient Instructions: Fainting, Adult ED Add. Discharge Instructions: 1. Return to ER for any recurrent symptoms. Change positions slowly from lying to sitting to standing up. Call Dr. Jacobs's office today to make an appointment to be seen next week. All discharge instructions reviewed with patient and/or family. Voiced understanding. Copy Copies To 1: MARIO RUBIO MD; MOE JACOBS MD, PETER J APRN May 02, 2021 10:49
[2021-05-02 10:51] LABS: BASOPHILS # (AUTO) 0.1 10^3/uL (0.0-0.1); BASOPHILS % (AUTO) 1 % (0-10); EOSINOPHILS # (AUTO) 0.1 10^3/uL (0.0-0.3); EOSINOPHILS % (AUTO) 2 % (0-10); HEMATOCRIT 36 % (40-54); HEMOGLOBIN 11.1 g/dL (13.3-17.7); LYMPHOCYTES # (AUTO) 0.9 10^3/uL (1.0-4.0); LYMPHOCYTES % (AUTO) 14 % (12-44); MEAN CORPUSCULAR HEMOGLOBIN 27 pg (25-34); MEAN CORPUSCULAR HGB CONC 31 g/dL (32-36); MEAN CORPUSCULAR VOLUME 87 fL (80-99); MEAN PLATELET VOLUME 9.9 fL (9.0-12.2); MONOCYTES # (AUTO) 0.6 10^3/uL (0.0-1.0); MONOCYTES % (AUTO) 10 % (0-12); NEUTROPHILS # (AUTO) 4.8 10^3/uL (1.8-7.8); NEUTROPHILS % (AUTO) 74 % (42-75); PLATELET COUNT 249 10^3/uL (130-400); WHITE BLOOD COUNT 6.5 10^3/uL (4.3-11.0)
[2021-05-02 10:56] LABS: POTASSIUM 4.5 MMOL/L (3.6-5.0)
[2021-05-02 10:58] LABS: CALCIUM 9.2 MG/DL (8.5-10.1); INR 1.3 (0.8-1.4); PROTHROMBIN TIME PATIENT 16.7 SEC (12.2-14.7)
[2021-05-02 10:59] LABS: TOTAL PROTEIN 6.9 GM/DL (6.4-8.2)
[2021-05-02 11:00] LABS: BILIRUBIN,TOTAL 0.6 MG/DL (0.1-1.0)
[2021-05-02 11:02] LABS: CREATININE SERUM 0.95 MG/DL (0.60-1.30)
[2021-05-02 11:06] LABS: MAGNESIUM 2.1 MG/DL (1.6-2.4)
--- NOTE | 2021-05-02 11:30 | Diagnostic Imaging Report ---
INDICATION: Syncope. Portable chest 11:14 AM FINDINGS: Heart size and pulmonary vascularity are normal. Lungs are clear. There are no effusions or pneumothoraces. IMPRESSION: Negative chest. Dictated by: Dictated on workstation # [id number]
--- NOTE | 2021-05-02 11:40 | Diagnostic Imaging Report ---
PROCEDURE: CT head and CT cervical spine without contrast. TECHNIQUE: Multiple contiguous axial images were obtained through the brain and cervical spine without the use of intravenous contrast. Sagittal and coronal reformations through the cervical spine were then performed. Auto Exposure Controls were utilized during the CT exam to meet ALARA standards for radiation dose reduction. INDICATION: Syncopal episode and fall with head and neck injury. Correlation is made with prior CT from 05/23/2020. CT HEAD: The ventricles and sulci are stable in appearance. There is extensive periventricular low-attenuation consistent with chronic microvascular ischemia. There is no sulcal effacement. No midline shift is identified. No acute intra-axial or extra-axial hemorrhage is detected. Cisterns are patent. Visualized paranasal sinuses are clear. IMPRESSION: Changes of chronic microvascular ischemia. No acute intracranial process is detected. CT CERVICAL SPINE: Curvature of the cervical spine is normal. There is minimal retrolisthesis of C3 on C4. There is multilevel degenerative disc disease with variable disc space narrowing and marginal spurring. No fractures are identified. Prevertebral tissues are within normal limits. Odontoid is intact. IMPRESSION: Cervical spondylosis. No acute bony abnormality is detected. Dictated by: Dictated on workstation # [id number]
[2021-05-02 11:52] VITALS: BP_SYST 107; BP_SYST 111; BP_SYST 116; BP_DIAS 61; BP_DIAS 63; BP_DIAS 79
[2021-05-02 12:12] VITALS: BP 111/61
== END 2021-05-02 12:12 | disposition home or self-care (01) ==
LOC: EDUNIT# 10:12 → ER 10:14
DX: R55 Syncope and collapse (principal); I48.91 Unspecified atrial fibrillation; I10 Essential (primary) hypertension; I25.10 Atherosclerotic heart disease of native coronary artery without angina pectoris; E78.00 Pure hypercholesterolemia, unspecified; C61 Malignant neoplasm of prostate; C79.51 Secondary malignant neoplasm of bone; C77.5 Secondary and unspecified malignant neoplasm of intrapelvic lymph nodes; Z86.718 Personal history of other venous thrombosis and embolism; Z90.79 Acquired absence of other genital organ(s); Z79.01 Long term (current) use of anticoagulants; Z79.899 Other long term (current) drug therapy
CPT/HCPCS: 36415; 70450; 71045; 72125; 80053; 83735; 83874; 83880; 84484; 85025; 85610; 85730; 93005; 93041

== ENCOUNTER 2021-05-10 06:54 | Day surgery (SDC) | payer MEDICARE ==
[2021-05-10] MEDS ORDERED: NS IV 1000 ML 1,000 ML IV SCH (07:15)
[2021-05-10 07:38] LABS: HEMATOCRIT 34 % (40-54); HEMOGLOBIN 10.7 g/dL (13.3-17.7); MEAN CORPUSCULAR HEMOGLOBIN 27 pg (25-34); MEAN CORPUSCULAR HGB CONC 31 g/dL (32-36); MEAN CORPUSCULAR VOLUME 87 fL (80-99); MEAN PLATELET VOLUME 9.5 fL (9.0-12.2); PLATELET COUNT 241 10^3/uL (130-400); WHITE BLOOD COUNT 6.4 10^3/uL (4.3-11.0)
[2021-05-10 08:05] LABS: ALBUMIN 3.8 GM/DL (3.2-4.5); BILIRUBIN,TOTAL 0.3 MG/DL (0.1-1.0); CALCIUM 8.7 MG/DL (8.5-10.1); CREATININE SERUM 0.83 MG/DL (0.60-1.30); POTASSIUM 4.3 MMOL/L (3.6-5.0); TOTAL PROTEIN 6.8 GM/DL (6.4-8.2)
== END 2021-05-10 08:45 | disposition home or self-care (01) ==
LOC: SDC 06:54
PROVIDERS: ATTEND Internal Medicine Cardiovascular Disease
DX: I48.91 Unspecified atrial fibrillation (principal); Z53.09 Procedure and treatment not carried out because of other contraindication
CPT/HCPCS: 36415; 80053; 84443; 85027; 93005

== ENCOUNTER 2021-05-10 10:00 | Outpatient (RCR) | payer MEDICARE | END 2021-05-20 | LOC: CARD 10:00 | PROVIDERS: ATTEND Physician Assistant | DX: I48.91 Unspecified atrial fibrillation (principal) ==

== ENCOUNTER → 2021-06-17 | Outpatient (CLI) | payer MEDICARE ==
[~2021-06-17] VITALS: Ht 187 cm; Wt 103.0 kg
[~2021-06-17] MED LIST changes: +REGADENOSON 0.4 MG/5 ML SYR (LEXISCAN) IV ONE
[2021-06-17] MEDS: CATHETER FLUSH 10 ML SYR IVP PRN ×2 (08:23→09:52)
[2021-06-17 09:42] VITALS: BP 153/88
--- NOTE | 2021-06-17 11:48 | Cardiology Stress Test Report ---
Stress Test Report Date of Procedure/Referring: Date of Procedure: Jun 17, 2021 Marce Rodriguez Admitting Physician Martin Rubio MD Indications: A fib Baseline Heart Rate: 62 Baseline Blood Pressure: Blood Pressure Systolic: 153 Blood Pressure Diastolic: 88 Baseline Vitals Vital Signs Date Time Temp Pulse Resp B/P (MAP) Pulse Ox O2 Delivery O2 Flow Rate FiO2 06/17/21 09:42 63 16 153/88 (109) 98 Room Air Baseline EKG: Baseline EKG: NSR Summary After explaining the procedure to the patient, he signed a consent and then brought to the stress nuclear laboratory. Patient received 0.4 mg Lexiscan for stress test, ECG, heart rate and blood pressure were monitored continuously. Resting and stress dose of radio tracer were injected, imaging was acquired and reviewed in short axis, horizontal long axis and vertical long axis views. TID: 1.02 SSS: 5 SDS: 3 EF: 53 1. Patient tolerated Lexiscan well 2. Baseline sinus rhythm persisted during test 3. Diaphragmatic attenuation with mild reversible ischemia involving the mid to apical anterolateral wall 4. Normal left ventricular size, EF 53% MOE SMION MD Jun 17, 2021 11:48
== END ==
LOC: CARD 08:45
PROVIDERS: ATTEND Physician Assistant
DX: I48.91 Unspecified atrial fibrillation (principal)
CPT/HCPCS: 78452; 93017; A9502

== ENCOUNTER 2021-06-28 10:00 | Day surgery (SDC) | payer MEDICARE ==
[~2021-06-28] VITALS: Ht 189.2 cm; Wt 101.4 kg
[2021-06-28] VITALS (10 sets, daily range): BP systolic 106–165; BP diastolic 56–95
[2021-06-28 08:31] LABS: HEMATOCRIT 38 % (40-54); HEMOGLOBIN 11.9 g/dL (13.3-17.7); MEAN CORPUSCULAR HEMOGLOBIN 28 pg (25-34); MEAN CORPUSCULAR HGB CONC 31 g/dL (32-36); MEAN CORPUSCULAR VOLUME 90 fL (80-99); MEAN PLATELET VOLUME 9.6 fL (9.0-12.2); PLATELET COUNT 269 10^3/uL (130-400); WHITE BLOOD COUNT 6.2 10^3/uL (4.3-11.0)
[2021-06-28 08:32] LABS: BILIRUBIN,URINE NEGATIVE (NEGATIVE); CLARITY,URINE CLEAR; COLOR,URINE YELLOW; GLUCOSE, URINE (UA) NEGATIVE (NEGATIVE); KETONES,URINE NEGATIVE (NEGATIVE); LEUKOCYTE ESTERASE ,URINE NEGATIVE (NEGATIVE); NITRITE,URINE NEGATIVE (NEGATIVE); PH,URINE 5.5 (5-9); PROTEIN,URINE NEGATIVE (NEGATIVE)
[2021-06-28 08:44] LABS: BACTERIA,URINE NEGATIVE /HPF; SQUAMOUS EPITHELIAL CELL,UR 0-2 /HPF; WBC,URINE RARE /HPF
[2021-06-28 08:51] LABS: ALBUMIN 4.3 GM/DL (3.2-4.5); BILIRUBIN,TOTAL 0.6 MG/DL (0.1-1.0); CALCIUM 9.4 MG/DL (8.5-10.1); CREATININE SERUM 0.89 MG/DL (0.60-1.30); POTASSIUM 4.1 MMOL/L (3.6-5.0); TOTAL PROTEIN 7.3 GM/DL (6.4-8.2)
--- NOTE | 2021-06-28 08:55 | Diagnostic Imaging Report ---
EXAMINATION: Chest 1 view HISTORY: ABNORMAL STRESS TEST COMPARISON: 05/02/2021 FINDINGS: Heart size and pulmonary vasculature are normal. The lungs are clear without consolidation, pleural effusion, or pneumothorax. Degenerative changes of the thoracic spine. Osseous structures are otherwise intact. IMPRESSION: 1. No acute radiographic abnormality in the chest. Dictated by: Dictated on workstation # [id number]
[~2021-06-28 10:00] MED LIST changes: +HEParin (CATH LAB) 2,000 ML IV ONE; +LIDOCAINE 1% INJ 20 ML VIAL INJ ONE; +LIDOCAINE 1% INJ 20 ML VIAL ONE; +LIDOCAINE 1% INJ 50 ML (XYLOCAINE) VIAL ONE; +LOSA50TA63 PO; +NS IV 1000 ML 1,000 ML IV SCH; -REGADENOSON 0.4 MG/5 ML SYR (LEXISCAN) IV ONE
[2021-06-28] MEDS ORDERED: VERAPAMIL 5 MG/2 ML (CALAN) VIAL IV ONE (10:02)
[2021-06-28] MEDS ORDERED: MIDAZOLAM 5 MG/5 ML (VERSED) VIAL ONE (10:03)
[2021-06-28] MEDS ORDERED: NITRO DRIP 25000 MCG/D5W 250 ML IV ONE (10:03)
[2021-06-28] MEDS ORDERED: fentaNYL INJ 100 MCG/2 ML AMP ONE (10:03)
[2021-06-28] MEDS ORDERED: HEParin 1000 UNIT/ML (10ML VIAL) FOR BOLUS ONE (10:03)
--- NOTE | 2021-06-28 10:12 | Conscious Sedation/ASA ---
Conscious Sedation Pre-Proced Time 10:12 ASA Score 3 For ASA 3 and 4: Consider anesthesia and medical clearance. Also, for patients with a history of failed moderate sedation consider anesthesia. Airway Lungs Heart ASA score ASA 1: a normal healthy patient ASA 2: a patient with a mild systemic disease (mid diabetes, controlled hypertension, obesity x ASA 3: a patient with a severe systemic disease that limits activity (angina, COPD, prior Myocardial infarction) ASA 4: a patient with an incapacitating disease that is a constant threat to life (CHF, renal failure) ASA 5: a moribund patient not expected to survive 24 hrs. (ruptured aneurysm) ASA 6: a declared brain- patient whose organs are being harvested. For emergent operations, add the letter E after the classification Mallampati Classification Grade 3 Sedation Plan Analgesia, Amnesia, Plan communicated to team members, Discussed options with patient/fam, Discussed risks with patient/fam The patient is an appropriate candidate to undergo the planned procedure, sedation, and anesthesia. The patient immediately re-assessed prior to indication. MOE SIMON MD Jun 28, 2021 10:12
--- NOTE | 2021-06-28 10:14 | Implantation of Loop Monitor ---
Implant of Loop Monitior IMPLANTATION OF LOOP MONITOR REPORT DATE OF PROCEDURE: 06/28/21 PREOP DIAGNOSIS: Nonsustained ventricular tachycardia POSTOP DIAGNOSIS: Nonsustained ventricular tachycardia PROCEDURE DETAILS: The patient is a 80 male with history of syncope and nonsustained ventricular tachycardia requiring long-term surveillance. Therefore implantable loop recorder was discussed and agreed with the patient. Informed consent was taken. All risks and complications were discussed at length. The patient was draped and prepped in the usual sterile fashion. Local anesthesia was lidocaine, which was given in the substernal area close to the 4th intercostal space. Loop monitor [employer] with serial number [id number] was implanted according to the protocol. Steri-Strips were placed at the end of the procedure. There were no complications and the patient tolerated the procedure well. ANESTHESIA: Local anesthesia with lidocaine. COMPLICATIONS: None CONTRAST/FLUOROSCOPY: None CONCLUSION: Successful implantation of loop monitor with no complication FINAL DIAGNOSIS: Coronary artery disease Syncope Nonsustained ventricular tachycardia Palpitation MOE SIMON MD Jun 28, 2021 10:14
[2021-06-28 10:35] LABS: INR 0.9 (0.8-1.4); PROTHROMBIN TIME PATIENT 12.9 SEC (12.2-14.7)
[2021-06-28] MEDS ORDERED: ADENOSINE 90 MG/30 ML (ADENOSCAN) VIAL IV ONE (10:39)
--- NOTE | 2021-06-28 10:53 | Discharge Inst-Post CATH ---
Discharge Inst-CATH/EP Problems Reviewed?: Yes Post Cardiac Cath/EP D/C Inst Follow Up/Plan Appointment with Dr. Jacobs's office in 2 to 4 weeks <b>CARDIAC CATH/EP PROCEDURE DISCHARGE INSTRUCTIONS</b> ACTIVITY * Go Home directly and rest. * Limit activity of the leg (or wrist if it was used) for 7 days including aer obics, swimming, jogging, bicycling, etc. * Restrict stair-climbing for 7 days if possible, if not, climb up with your non-cath leg, then bring together on the same step. * Avoid lifting, pushing, pulling or excessive movement of the affected extremi ty for 7 days. * Customary sexual activity may be resumed after 2 days-use caution not to use a position that strains or causes pain to the affected extremity. * No driving for 24 hours. * NO SMOKING. * Avoid straining for bowel movements for 7 days. * Gentle walking on level ground is allowed. * Returning to work will depend on the type of procedure and the results. Your doctor will discuss this with you. CALL YOUR DOCTOR FOR ANY OF THE FOLLOWING: *If bleeding from the puncture site occurs- Apply gentle pressure to site with clean cloth and call your doctor or EMS. * If a knot or lump forms under the skin, increases in size, or causes pain. * If bruising appears to be worsening or moving further down your leg instead of disappearing. * Temperature above 101 F. CARE OF YOUR GROIN INCISION; * Bruising or purple discoloration of the skin near the puncture site is common. * You may shower only, no bathtub bathing for 5 days. Be careful to avoid slipping as your leg may feel stiff. * If a closure device was used on your femoral artery, please see the attached guide regarding care of the device and your leg. * Leave dressing on FOR 24 hours. CARE OF YOUR WRIST INCISION; * Bruising or purple discoloration of the skin near the puncture site is common. * You may shower. * DO NOT submerge wrist. * Leave dressing on FOR 24 hours. MOE JACOBS MD Jun 28, 2021 10:53
--- NOTE | 2021-06-28 10:56 | Cardiac Cath Report ---
Cardiac Cath Report Physician (s)/[employer]ator (s) Physician OME SIMON MD Pre-Procedure Diagnosis Pre-Procedure Diagnosis: Coronary artery disease Post-Procedure Note Procedure Start Date: Jun 28, 2021 Name of Procedure: Left heart catheterization Findings/Procedure Note PROCEDURE NOTE: 80-year-old gentleman with history of syncope, nonsustained ventricular tachycardia, abnormal stress test, scheduled for cardiac catheterization possible PTCA. After explaining the procedure to the patient, all pros and cons were explained, all questions were answered. The patient signed the consent and then he was placed on the cardiac catheterization laboratory. Groin was prepped SL fashion local anesthesia was used. Sheath placed in the right radial artery, Maskell catheter advanced to the left ventricular cavity, pressure was measured, pu llback LV to aorta was done, engaged the right and left coronary system and angiogram was done. Catheter was exchanged and used Derrek right guide advanced to the right coronary artery, pressure wire was advanced to the distal right coronary artery Baseline FFR was 0.98, adenosine challenge was done over 2 minutes and FFR was at the low was 0.90. Guide and wire were removed, no complication noted At the end of the procedure the sheath was removed. Vascular band was used FINDINGS: Hemodynamics LV 105/15, end-diastolic pressure of 15 Aorta 111/64 mean of 85 ANATOMY: Left Main is free of obstructive disease Left Anterior Descending has mild to moderate disease nonobstructive disease Left Circumflex has mild to moderate disease nonobstructive disease Right Coronary Artery has moderate stenosis at the mid to distal portion. FFR after adenosine was 0.90. LV Gram was not done, pressure was measured CONCLUSION: 1. Moderate stenosis at the mid right coronary artery FFR 0.90. Conservative management is recommended 2. Mild to moderate disease in the LAD and circumflex artery DISCUSSION AND RECOMMENDATION: Medical therapy is recommended no intervention is warranted Anesthesia Type: Conscious Sedation Estimated blood loss (mL): 20 ml Contrast Amount: 75 ml Total Radiation Dose: 568 mGy Post-Procedure Diagnosis Post-operative diagnosis: Syncope. Ventricular tachycardia Coronary artery disease Hypertension MOE SIMON MD Jun 28, 2021 10:56
[2021-06-28] MEDS ORDERED: NS IV 1000 ML 1,000 ML IV SCH (11:00)
== END 2021-06-28 14:05 | disposition home or self-care (01) ==
LOC: CATH 10:00 → CSD 11:14 → CATH 14:05
PROVIDERS: ATTEND Internal Medicine Cardiovascular Disease
DX: I25.10 Atherosclerotic heart disease of native coronary artery without angina pectoris (principal); R55 Syncope and collapse; I47.2 Ventricular tachycardia; I10 Essential (primary) hypertension; I48.0 Paroxysmal atrial fibrillation; I65.29 Occlusion and stenosis of unspecified carotid artery; C61 Malignant neoplasm of prostate; E78.5 Hyperlipidemia, unspecified; D68.51 Activated protein C resistance; E78.2 Mixed hyperlipidemia; I48.91 Unspecified atrial fibrillation; Z87.891 Personal history of nicotine dependence; Z79.01 Long term (current) use of anticoagulants
CPT/HCPCS: 33285; 71045; 80053; 80061; 81000; 85027; 85610; 85730; 87081; 93005; 93458; 93571; C1764; C1769; C1887; C1894; 36415

== ENCOUNTER → 2021-10-18 | Outpatient (CLI) | payer MEDICARE ==
[~2021-10-18] MED LIST changes: -HEParin (CATH LAB) 2,000 ML IV ONE; -LIDOCAINE 1% INJ 20 ML VIAL INJ ONE; -LIDOCAINE 1% INJ 20 ML VIAL ONE; -LIDOCAINE 1% INJ 50 ML (XYLOCAINE) VIAL ONE; -NS IV 1000 ML 1,000 ML IV SCH; -TRIA1CAP4 PO; +TRIA1CAP84 PO
== END ==
LOC: CARD 08:59
PROVIDERS: ATTEND Internal Medicine Cardiovascular Disease
DX: I49.3 Ventricular premature depolarization (principal)

== ENCOUNTER → 2022-07-28 | Outpatient (CLI) | payer MEDICARE ==
[~2022-07-28] MED LIST changes: +LEVO-55 PO; -LEVO500T81 PO
--- NOTE | 2022-07-28 18:28 | Diagnostic Imaging Report ---
INDICATION: Carcinoma of the prostate. The patient received an intravenous dose of 26 mCi technetium 99 MDP and after 3 hours, whole-body planar imaging was performed. COMPARISON with bone scan of 06/10/2019. There is elevated uptake involving the left sacral ala, most notably posteriorly. This is nonspecific and can be seen in the setting of insufficiency type fracture. This is new from prior. The contralateral right sacral ala may be mildly elevated in its activity. There is postoperative and degenerative pattern of uptake involving the right and left knees, respectively. Increased abnormal uptake about the right medial clavicle and sternoclavicular joint. The lower right lumbar uptake has diminished. Calvarium unremarkable. IMPRESSION: 1. Increased uptake about the right medial clavicle and sternoclavicular joint, indeterminate. 2. New uptake involves the left greater than right sacral ala which may be seen in insufficiency type fractures, correlate clinically and if warranted, pelvic MR may be of benefit for follow-up particularly if painful fractures are present. 3. Calvarium ribs and shafts of the long bones unremarkable. Decreased uptake in the lower lumbar spine, likely degenerative. Dictated by: Dictated on workstation # [id number]
== END ==
LOC: CARD 11:30
PROVIDERS: ATTEND Nurse Practitioner Adult Health
DX: C61 Malignant neoplasm of prostate (principal); Z79.818 Long term (current) use of other agents affecting estrogen receptors and estrogen levels
CPT/HCPCS: 78306; A9503

== ENCOUNTER 2022-08-25 14:11 | Emergency (ER) | payer MEDICARE ==
[~2022-08-25] VITALS: Ht 187.9 cm; Wt 101.4 kg
[2022-08-25 15:00] VITALS: BP_SYST 102; BP_SYST 127; BP_DIAS 55; BP_DIAS 68; BP_DIAS 79
[2022-08-25 15:14] LABS: BASOPHILS % (AUTO) 0 % (0-10); EOSINOPHILS % (AUTO) 0 % (0-10); HEMATOCRIT 35 % (40-54); HEMOGLOBIN 11.1 g/dL (13.3-17.7); LYMPHOCYTES # (AUTO) 0.6 10^3/uL (1.0-4.0); LYMPHOCYTES % (AUTO) 8 % (12-44); MEAN CORPUSCULAR HEMOGLOBIN 29 pg (25-34); MEAN CORPUSCULAR HGB CONC 32 g/dL (32-36); MEAN CORPUSCULAR VOLUME 89 fL (80-99); MEAN PLATELET VOLUME 9.5 fL (9.0-12.2); MONOCYTES # (AUTO) 0.7 10^3/uL (0.0-1.0); MONOCYTES % (AUTO) 11 % (0-12); NEUTROPHILS # (AUTO) 5.7 10^3/uL (1.8-7.8); NEUTROPHILS % (AUTO) 81 % (42-75); PLATELET COUNT 281 10^3/uL (130-400)
[2022-08-25 15:22] LABS: ALBUMIN 4.1 GM/DL (3.2-4.5)
[2022-08-25 15:23] LABS: POTASSIUM 3.6 MMOL/L (3.6-5.0)
[2022-08-25 15:24] LABS: CALCIUM 9.1 MG/DL (8.5-10.1)
[2022-08-25 15:25] LABS: TOTAL PROTEIN 7.5 GM/DL (6.4-8.2)
[2022-08-25 15:27] LABS: BILIRUBIN,TOTAL 0.5 MG/DL (0.1-1.0)
[2022-08-25 15:29] LABS: CREATININE SERUM 0.99 MG/DL (0.60-1.30)
[2022-08-25 15:32] LABS: MAGNESIUM 1.9 MG/DL (1.6-2.4)
--- NOTE | 2022-08-25 15:33 | Diagnostic Imaging Report ---
CLINICAL INDICATION: Patient fell this morning and hit nose area. Patient on blood thinners. EXAM: Axial CT scan of the brain without IV contrast with coronal and sagittal reformatted images. Auto Exposure Controls were utilized during the CT exam to meet ALARA standards for radiation dose reduction. COMPARISON: None. FINDINGS: There is no evidence of acute cerebral infarct, intracranial hemorrhage, or gross mass effect. The brain parenchymal volume appears appropriate for patient's age. Again seen are diffuse patchy confluent areas of low-attenuation white matter changes involving both cerebral hemispheres and periventricular regions, likely representing chronic small vessel ischemic disease and leukoaraiosis. There is normal mathew-white matter distinction. There is no significant midline shift or herniation. There is no evidence of hydrocephalus. The basal cisterns are unremarkable. There is no skull fracture. The skull, extracranial soft tissue, and orbits are unremarkable. The paranasal sinuses are unremarkable. Temporal bones show no significant abnormality. IMPRESSION: There is no interval CT evidence of acute intracranial process. There is no skull fracture. Dictated by: Dictated on workstation # [id number]
[2022-08-25] MEDS ORDERED: LACTATED RINGERS 1,000 ML IV ONE (16:15)
[2022-08-25] MEDS ORDERED: fentaNYL INJ 100 MCG/2 ML AMP IVP ONE (16:15)
--- NOTE | 2022-08-25 16:15 | ED Syncope ---
General Chief Complaint: Trauma-Non Activation Stated Complaint: FALL | DIZZY | RT SIDE PAIN Nursing Triage Note: PASSED OUT THIS AM AT 0500, WOKE UP ON THE FLOOR. DR TIPTON'S OFFICE ADVISED HI TO BE SEEN IN ED. HIT RIGHT KNEE WELL Source of Information: Patient Exam Limitations: Other (slow historian) History of Present Illness Date Seen by Provider: Aug 25, 2022 Time Seen by Provider: 14:28 Initial Comments This 82-year-old gentleman presents to the emergency room with primary complaint of a syncopal episode. He reports frequently being lightheaded upon standing. He has had multiple syncopal episodes over the past year. He reports a syncopal episode with a fall at about 0500. He awoke on the bathroom floor. He reports having some diarrhea yesterday and feeling dizzy all day. He has a history of prostate cancer for which he has been treated with Lupron. Dr. Locke is his oncologist and Dr. Rubio is his primary care provider. Dr. Jacobs is his bridge leverman. He was referred to the ER by Dr. Locke when they learned of his syncopal episode. Patient states Dr. Jacobs is not aware that he has been having syncopal episodes. He does have a loop recorder in place. He denies chest pain or shortness of breath. He is a bit of a difficult historian who lacks focus during the interview. He reports history of carotid artery stenosis with right carotid surgery. It is unclear if patient injured his head when he fell. He is anticoagulated. Patient reports significant pain in his knee and difficulty bending it as a result. He also reports significant pain in the right lower chest wall and right upper abdomen which he believes he struck on the toilet. He has splinting his respirations as a result. Allergies and Home Medications Allergies Coded Allergies: No Known Drug Allergies (Unverified , 10/05/19) Patient Home Medication List Home Medication List Reviewed: Yes Acetaminophen (Tylenol Arthritis) 650 Mg Tablet.er, 650-1,300 MG PO Q8H PRN for PAIN-MILD (1-4), (Reported) Entered as Reported by: KAREN BROWN on 01/10/20 1601 Amiodarone HCl (Amiodarone HCl) 200 Mg Tablet, 200 MG PO DAILY, (Reported) Entered as Reported by: KATELYNN GEE on 06/28/21 0835 Apixaban (Eliquis) 5 Mg Tablet, 5 MG PO BID, (Reported) Entered as Reported by: KAREN BROWN on 01/10/20 1501 Atorvastatin Calcium (Atorvastatin Calcium) 40 Mg Tablet, 40 MG PO DAILY, (Reported) Entered as Reported by: SOFI HURT on 10/26/18 1116 Calcium Carbonate (Calcium) 500 Mg Tablet, 500 MG PO DAILY, (Reported) Entered as Reported by: KAREN BROWN on 01/10/20 1601 Cefdinir (Cefdinir) 300 Mg Capsule, 300 MG PO BID Prescribed by: MANE WYNNE on 08/25/22 191 Losartan Potassium (Losartan Potassium) 50 Mg Tablet, 50 MG PO DAILY, (Reported) Entered as Reported by: KATELYNN GEE on 06/28/21 0835 Tizanidine HCl (Tizanidine HCl) 2 Mg Tablet, 2-4 MG PO Q6H PRN for MUSCLE SPASMS, (Reported) Entered as Reported by: KAREN BROWN on 01/10/20 1507 Review of Systems Constitutional: no symptoms reported EENTM: no symptoms reported Respiratory: no symptoms reported Cardiovascular: see HPI Gastrointestinal: see HPI Genitourinary: no symptoms reported Musculoskeletal: no symptoms reported Skin: no symptoms reported Psychiatric/Neurological: See HPI Past Auqtbqq-Xstzjv-Ywszgx Hx Patient Social History Tobacco Use?: No Use of E-Cig and/or Vaping dev: No Substance use?: No Alcohol Use?: No Pt feels they are or have been: No Immunizations Up To Date Influenza Vaccine Up-to-Date: Yes; Up-to-Date First/Initial COVID19 Vaccinat: 2020 Second COVID19 Vaccination Erasto: 2020 Third COVID19 Vaccination Date: 11/05/2020 Seasonal Allergies Seasonal Allergies: No Past Medical History Surgery/Hospitalization HX: SX: PROSTATE REMOVAL, CAROTID CATH 2006, RIGHT KNEE REPLACEMENT 2008, URETHRA SURGERY PMH: PROSTATE CANCER 2004, AFIB HX (SHOCKED INTO RHYTHM) Surgeries: Yes (RIGHT KNEE REPLACEMENT, CAROTID ARTERY, ) Cardiac (loop recorder), Joint Replacement, Orthopedic, Prostatectomy, Vascular Surgery (righ carotid) Respiratory: No Currently Using CPAP: No Currently Using BIPAP: No Cardiac: Yes (HX AFIB) Atrial Fibrillation, Deep Vein Thrombosis, High Cholesterol, Hypertension, Peripheral Vascular (carotid artery stenosis) Neurological: No Reproductive Disorders: No Sexually Transmitted Disease: No HIV/AIDS: No Genitourinary: Yes Prostate Problems Gastrointestinal: No Musculoskeletal: Yes (back ) Arthritis Endocrine: No HEENT: Yes (GLASSES) Loss of Vision: Denies Hearing Impairment: Hard of Hearing, Bilateral Hearing Aide Cancer: Yes Prostate Did You Recieve Any Treatments: Yes What Type of Treatment Did You: Radiation, Surgical Intervention Psychosocial: No Integumentary: No Blood Disorders: No Adverse Reaction/Blood Tranf: No (N/A) Family Medical History Cardiomyopathy 19 FATHER Diabetes mellitus paternal grandmother maternal grandmother FH: breast cancer 19 MOTHER Physical Exam Vital Signs Vital Signs - First Documented 08/25/22 14:15 Temp 37.0 Pulse 86 Resp 18 B/P (MAP) 131/80 (97) Pulse Ox 95 O2 Delivery Room Air Capillary Refill : Less Than 3 Seconds Height, Weight, BMI Height: 6'2.00" Weight: 213lbs. 13.4oz. 96.619527ul; 28.00 BMI Method: General Appearance: WD/WN, Mild Distress, Other (smells of urine) HEENT: PERRL/EOMI, Normal ENT Inspection Neck: Normal Inspection; No JVD Cardiovascular: Regular Rate, Rhythm, No Edema, No Murmur Respiratory: Lungs Clear, Normal Breath Sounds, No Accessory Muscle Use, Other (Tenderness along the right lower lateral and anterior chest wall) Gastrointestinal: Soft; No Distended; Tenderness (Right upper quadrant) Extremities: Normal Inspection, No Pedal Edema Neurologic/Psychiatric: Alert, Oriented x3, No Motor/Sensory Deficits, Normal Mood/Affect Cranial Nerves: Normal Speech, PERRL, Hearing Deficit (L), Hearing Deficit (R) Motor/Sensory: No Motor Deficit, No Sensory Deficit Skin: Normal Color, Warm/Dry Progress/Results/Core Measures Results/Orders Lab Results Laboratory Tests Test 08/25/22 15:00 08/25/22 16:56 Range/Units White Blood Count 7.0 4.3-11.0 10^3/uL Red Blood Count 3.88 L 4.30-5.52 10^6/uL Hemoglobin 11.1 L 13.3-17.7 g/dL Hematocrit 35 L 40-54 % Mean Corpuscular Volume 89 80-99 fL Mean Corpuscular Hemoglobin 29 25-34 pg Mean Corpuscular Hemoglobin Concent 32 32-36 g/dL Red Cell Distribution Width 17.2 H 10.0-14.5 % Platelet Count 281 130-400 10^3/uL Mean Platelet Volume 9.5 9.0-12.2 fL Immature Granulocyte % (Auto) 0 % Neutrophils (%) (Auto) 81 H 42-75 % Lymphocytes (%) (Auto) 8 L 12-44 % Monocytes (%) (Auto) 11 0-12 % Eosinophils (%) (Auto) 0 0-10 % Basophils (%) (Auto) 0 0-10 % Neutrophils # (Auto) 5.7 1.8-7.8 10^3/uL Lymphocytes # (Auto) 0.6 L 1.0-4.0 10^3/uL Monocytes # (Auto) 0.7 0.0-1.0 10^3/uL Eosinophils # (Auto) 0.0 0.0-0.3 10^3/uL Basophils # (Auto) 0.0 0.0-0.1 10^3/uL Immature Granulocyte # (Auto) 0.0 0.0-0.1 10^3/uL Sodium Level 137 135-145 MMOL/L Potassium Level 3.6 3.6-5.0 MMOL/L Chloride Level 105 98-107 MMOL/L Carbon Dioxide Level 21 21-32 MMOL/L Anion Gap 11 5-14 MMOL/L Blood Urea Nitrogen 23 H 7-18 MG/DL Creatinine 0.99 0.60-1.30 MG/DL Estimat Glomerular Filtration Rate 77 BUN/Creatinine Ratio 23 Glucose Level 123 H 70-105 MG/DL Calcium Level 9.1 8.5-10.1 MG/DL Corrected Calcium 9.0 8.5-10.1 MG/DL Magnesium Level 1.9 1.6-2.4 MG/DL Total Bilirubin 0.5 0.1-1.0 MG/DL Aspartate Amino Transf (AST/SGOT) 21 5-34 U/L Alanine Aminotransferase (ALT/SGPT) 14 0-55 U/L Alkaline Phosphatase 94 40-136 U/L Total Protein 7.5 6.4-8.2 GM/DL Albumin 4.1 3.2-4.5 GM/DL Urine Color YELLOW Urine Clarity SL CLOUDY Urine pH 5.5 5-9 Urine Specific [place] 1.015 L 1.016-1.022 Urine Protein 1+ H NEGATIVE Urine Glucose (UA) NEGATIVE NEGATIVE Urine Ketones NEGATIVE NEGATIVE Urine Nitrite POSITIVE H NEGATIVE Urine Bilirubin NEGATIVE NEGATIVE Urine Urobilinogen 0.2 < = 1.0 MG/DL Urine Leukocyte Esterase TRACE H NEGATIVE Urine RBC (Auto) 3+ H NEGATIVE Urine RBC 10-25 H /HPF Urine WBC 25-50 H /HPF Urine Crystals PRESENT H /LPF Urine Calcium Oxalate Crystals LARGE H /LPF Urine Bacteria MODERATE H /HPF Urine Casts PRESENT /LPF Urine Hyaline Casts 2-5 H /LPF Urine Mucus NEGATIVE /LPF Urine Culture Indicated YES Micro Results Microbiology 08/25/22 Urine Culture - Final, Complete Escherichia coli My Orders Orders - MANE MERLOS MD Cbc With Automated Diff (08/25/22 14:28) Comprehensive Metabolic Panel (08/25/22 14:28) Magnesium (08/25/22 14:28) Ua Culture If Indicated (08/25/22 14:28) Ed Iv/Invasive Line Start (08/25/22 14:28) Ekg Tracing (08/25/22 14:28) Monitor-Rhythm Ecg Trace Only (08/25/22 14:28) Orthostatic Vital Signs (Adult (08/25/22 14:28) Knee, Right, 3 Views (08/25/22 14:29) Ct Head Wo (08/25/22 14:29) Ct Chest/Abdomen/Pelvis W (08/25/22 16:08) Us Carotid Carlos Complete [id number] (08/25/22 16:08) Lactated Ringers (Lr 1000 Ml Iv Solution (08/25/22 16:15) Fentanyl Inj (Sublimaze Injection) (08/25/22 16:15) Iohexol Injection (Omnipaque 350 Mg/Ml 1 (08/25/22 16:45) Ns (Ivpb) (Sodium Chloride 0.9% Ivpb Bag (08/25/22 16:45) Urine Culture (08/25/22 16:56) Ns Iv 500 Ml (Sodium Chloride 0.9%) (08/25/22 17:45) Ceftriaxone Pre-Mix (Rocephin Pre-Mix) (08/25/22 18:43) Tramadol Tablet (Ultram Tablet) (08/25/22 19:00) Acetaminophen Tablet (Tylenol Tablet) (08/25/22 19:00) Medications Given in ED Vital Signs/I&O 08/25/22 08/25/22 08/25/22 14:15 15:00 19:14 Temp 37.0 37.1 Pulse 86 80 60 84 95 Resp 18 16 B/P (MAP) 131/80 (97) 127/79 (95) 145/83 102/68 (79) 102/55 (71) Pulse Ox 95 97 O2 Delivery Room Air Room Air Blood Pressure Mean: 71 Progress Progress Note : Progress Note Imaging studies were obtained to evaluate his trauma including CT of the head, chest, and abdomen. No injuries were identified with head CT. However, CT of the chest and abdomen was reviewed by me thoroughly. By my interpretation there was at least 1 rib fracture on rib 11 on the right. This was discussed directly with the radiologist. Radiologist agrees that there are multiple rib fractures. Right knee x-ray showed no acute injuries. No other injuries were identified. Labs were obtained, reviewed, and interpreted by me. Labs were grossly unremarkable. Urinalysis was reviewed and patient was found to have opal pyuria. Urinary tract infection was treated with Rocephin. Orthostatic blood pressures revealed orthostatic hypotension with a drop greater than 20 mmHg between lying and standing blood pressures. 1.5 L IV fluids were infused to treat the orthostasis. Patient's pain was treated with Ultram and Tylenol. Bilateral carotid ultrasound was obtained to evaluate the status of his carotid artery stenosis. No critical stenosis was identified. Patient was ultimately discharged in stable condition. Initial ECG Impression Date: Aug 25, 2022 Initial ECG Impression Time: 14:43 Initial ECG Rate: 80 Initial ECG Rhythm: Normal Sinus Comment Normal sinus rhythm with no ST elevation or depression. No abnormal intervals or axis deviation. Diagnostic Imaging Diagonstic Imaging: CT Plain Films/CT/US/NM/MRI: head Comments NAME: ARIEL BARAKAT MED REC#: [id number] PT STATUS: REG ER : 1940 PHYSICIAN: MANE MERLOS MD ADMIT DATE: 08/25/22/ER Signed Date of Exam:08/25/22 CT HEAD WO CLINICAL INDICATION: Patient fell this morning and hit nose area. Patient on blood thinners. EXAM: Axial CT scan of the brain without IV contrast with coronal and sagittal reformatted images. Auto Exposure Controls were utilized during the CT exam to meet ALARA standards for radiation dose reduction. COMPARISON: None. FINDINGS: There is no evidence of acute cerebral infarct, intracranial hemorrhage, or gross mass effect. The brain parenchymal volume appears appropriate for patient's age. Again seen are diffuse patchy confluent areas of low-attenuation white matter changes involving both cerebral hemispheres and periventricular regions, likely representing chronic small vessel ischemic disease and leukoaraiosis. There is normal mathew-white matter distinction. There is no significant midline shift or herniation. There is no evidence of hydrocephalus. The basal cisterns are unremarkable. There is no skull fracture. The skull, extracranial soft tissue, and orbits are unremarkable. The paranasal sinuses are unremarkable. Temporal bones show no significant abnormality. IMPRESSION: There is no interval CT evidence of acute intracranial process. There is no skull fracture. Dictated by: Dictated on workstation # [id number] Dict: 08/25/22 1527 Trans: 08/25/221809 [id number] Interpreted by: BUSTER AYERS MD Electronically signed by: BUSTER AYERS MD 08/25/221809 Reviewed: Reviewed by Pa Diagonstic Imaging: Xray Plain Films/CT/US/NM/MRI: knee Comments NAME: ARIEL BARAKAT [facility] REC#: [id number] PT STATUS: REG ER : 1940 PHYSICIAN: MANE MERLOS MD ADMIT DATE: 08/25/22/ER Signed Date of Exam:08/25/22 KNEE, RIGHT, 3 VIEWS INDICATION: Pain. FINDINGS: Three-view right knee shows total knee arthroplasty. No acute fracture, dislocation, or joint effusion. Vascular calcifications and chronic soft tissue calcifications noted. IMPRESSION: Knee arthroplasty. No acute-appearing abnormality. Dictated by: Dictated on workstation # [id number] Dict: 08/25/22 1642 Trans: 08/25/228 [facility] [id number] Interpreted by: HARRISON PRIETO Electronically signed by: HARRISON PRIETO 08/25/221717 Reviewed: Reviewed by Me Diagonstic Imaging: Ultrasound Comments NAME: ARIEL BARAKAT [facility] REC#: [id number] PT STATUS: REG ER : 1940 PHYSICIAN: MANE MERLOS MD ADMIT DATE: 08/25/22/ER Signed Date of Exam:08/25/22 US CAROTID CARLOS COMPLETE [id number] CLINICAL INDICATION: Patient is status post fall and dizzy. COMPARISON: None. EXAM: Real-time ultrasound carotid Doppler duplex imaging is performed bilaterally with multiple real-time grayscale images obtained in various projections. Additional spectral analysis and color Doppler duple images were also obtained. Peak systolic velocity, ICA/CCA peak systolic ratio, spectral analysis, and vascular morphology are studied. FINDINGS: ARTERY VELOCITY Right Left CCA 0.96 m/s 1.01 m/s ICA 0.77 m/s 1.35 m/s ECA 1.25 m/s 0.81 m/s ICA/CCA 0.80 1.34 VERT.ART Antegrade Antegrade There is moderate atherosclerotic disease and irregularity involving the bilateral carotid arteries with the ICA bulbs affected the most. IMPRESSION: There is bilateral carotid artery atherosclerotic disease with no grayscale or Doppler evidence of significant vascular stenosis. Dictated by: Dictated on workstation # [id number] Dict: 08/25/221741 Trans: 08/25/221756 AS6 [id number] Interpreted by: BUSTER AYERS MD Electronically signed by: BUSTER AYERS MD 08/25/221756 Diagonstic Imaging: CT Plain Films/CT/US/NM/MRI: chest, abdomen, pelvis Comments NAME: ARIEL BARAKAT [facility] REC#: [id number] PT STATUS: REG ER : 1940 PHYSICIAN: MANE MERLOS MD ADMIT DATE: 08/25/22/ER Signed Date of Exam:08/25/22 CT CHEST/ABDOMEN/PELVIS W Procedure: CT chest, abdomen, and pelvis with contrast. Technique: Multiple contiguous axial images were obtained through the chest, abdomen, and pelvis after the administration of intravenous contrast. Auto Exposure Controls were utilized during the CT exam to meet ALARA standards for radiation dose reduction. Date: August 25, 2022. Indication: 82-year-old male, fall this morning. Right-sided rib pain. Abdominal pain. History of prostate cancer. Comparisons: CT abdomen and pelvis June 10, 2019. Chest radiographs January 30, 2021. Findings: There are linear opacities in the right lower lobe consistent with atelectasis. There is no identified pulmonary nodule or lung mass. There is no additional focal airspace consolidation. There is no pneumothorax. There is no pleural effusion. The central airways are patent. There are coronary artery calcifications and additional areas of atherosclerotic disease. The heart is not enlarged. There is no identified pericardial effusion. There is no identified abnormally enlarged mediastinal, hilar, or axillary lymph node which meets CT size criteria for adenopathy. The left vertebral artery arises directly off the aortic arch. The liver is unremarkable in size and contour. There is no identified liver lesion. The main, right, and left portal veins are patent. The gallbladder is distended. There is no CT apparent gallstone or evidence of acute cholecystitis. There is no biliary ductal dilation. The main pancreatic duct is not abnormally dilated. Unremarkable appearance of the pancreatic parenchyma. The spleen is normal in size. The adrenal glands are unremarkable. There are nonobstructing renal stones bilaterally measuring up to approximately 3 mm in size. The urinary collecting systems are not distended. There is no identified ureteral stone. There is diffuse urinary bladder wall thickening which may reflect cystitis and/or chronic outlet obstruction. There are surgical clips in the expected location of the prostate which appears to be absent. There are fluid-filled dilated segments of small bowel which measure up to approximately 3.5 cm in diameter. There is small bowel wall thickening noted on axial image 202 and adjacent sequential images in the right lower quadrant. This is not particularly of long segment length. The fluid filled distended segments of small bowel are proximal to this level. There is no identified free intraperitoneal air. There is no identified drainable fluid collection. There is no sizable volume free fluid in the abdomen or pelvis. There are atherosclerotic calcifications. There is no identified abnormally enlarged lymph node in the abdomen or pelvis meeting CT size criteria for adenopathy. There are multilevel degenerative changes of the spine. There are mildly displaced fractures of the right 10th and 11th ribs laterally. Impression: 1. Focal wall thickening of small bowel in the right lower quadrant which could relate to a nonspecific enteritis. Infectious and inflammatory etiologies are considered. This is also not particularly long segment length. Malignancy would be in the differential diagnosis. 2. Fluid-filled mildly dilated segments of small bowel proximal to the area of wall thickening of the small bowel which may reflect small bowel obstruction. 3. No identified acute cardiopulmonary abnormality. 4. Mildly displaced fractures of the right 10th and 11th ribs laterally. Dictated by: Dictated on workstation # [id number] Dict: 08/25/221653 Trans: 08/25/221752 [facility] [id number] Interpreted by: YURIY DOUGHERTY MD Electronically signed by: YURIY DOUGHERTY MD 08/25/221752 Departure Impression Primary Impression: Right rib fracture Qualified Codes: S22.41XA - Multiple fractures of ribs, right side, initial encounter for closed fracture Additional Impressions: Syncope Qualified Codes: R55 - Syncope and collapse Urinary tract infection Qualified Codes: N39.0 - Urinary tract infection, site not specified; R31.9 - Hematuria, unspecified Hypovolemia Contusion of right knee Qualified Codes: S80.01XA - Contusion of right knee, initial encounter Disposition: HOME, SELF-CARE Condition: Improved Departure-Patient Inst. Decision time for Depature: 19:00 Referrals: MARIO RUBIO MD (PCP/Family) Primary Care Physician Patient Instructions: Rib fractures in adults, Urinary tract infections in adults Add. Discharge Instructions: Increase your fluid intake significantly. Complete your antibiotics as prescribed. Follow-up with Dr. Rubio in clinic or by phone on or Thursday to review urine culture results. Also asked Dr. Rubio about referral to a urologist. You need to have routine follow-up with a urologist given your history of recurrent prostate cancer and urinary tract infections. Take Ultram (tramadol) as previously prescribed. Add Tylenol (acetaminophen) up to 1000 mg every 6 hours as needed for additional pain relief. You may also try topical treatments such as lidocaine patches. Exercise deep breathing with the incentive spirometer at least once per hour while awake. Also schedule appointment with Dr. Jacobs to discuss your syncope (passing out episodes). Return to the ER if you have worsening symptoms despite following these instructions. All discharge instructions reviewed with patient and/or family. Voiced understanding. Scripts Cefdinir (Cefdinir) 300 Mg Capsule 300 MG PO BID, #14 CAP 0 Refills Prov: MANE MERLOS MD 08/25/22 Copy Copies To 1: MARIO RUBIO MD Copies To 2: MOE JACOBS MD; ANKITA LOCKE JOSHUA T MD Aug 25, 2022 16:15
[2022-08-25] MEDS ORDERED: NS 100 ML (IVPB) BAG IV ONE (16:45)
[2022-08-25] MEDS ORDERED: IOHEXOL 350 MG/ML 100 ML (OMNIPAQUE 350) VIAL IV ONE (16:45)
--- NOTE | 2022-08-25 16:48 | Diagnostic Imaging Report ---
INDICATION: Pain. FINDINGS: Three-view right knee shows total knee arthroplasty. No acute fracture, dislocation, or joint effusion. Vascular calcifications and chronic soft tissue calcifications noted. IMPRESSION: Knee arthroplasty. No acute-appearing abnormality. Dictated by: Dictated on workstation # [id number]
[2022-08-25 17:01] LABS: BILIRUBIN,URINE NEGATIVE (NEGATIVE); CLARITY,URINE SL CLOUDY; COLOR,URINE YELLOW; GLUCOSE, URINE (UA) NEGATIVE (NEGATIVE); KETONES,URINE NEGATIVE (NEGATIVE); LEUKOCYTE ESTERASE ,URINE TRACE (NEGATIVE); NITRITE,URINE POSITIVE (NEGATIVE); PH,URINE 5.5 (5-9); PROTEIN,URINE 1+ (NEGATIVE)
[2022-08-25 17:11] LABS: WBC,URINE 25-50 /HPF
[2022-08-25 17:12] LABS: BACTERIA,URINE MODERATE /HPF; CALCIUM OXALATE CRYSTALS,UR LARGE /LPF
--- NOTE | 2022-08-25 17:33 | Diagnostic Imaging Report ---
Procedure: CT chest, abdomen, and pelvis with contrast. Technique: Multiple contiguous axial images were obtained through the chest, abdomen, and pelvis after the administration of intravenous contrast. Auto Exposure Controls were utilized during the CT exam to meet ALARA standards for radiation dose reduction. Date: August 25, 2022. Indication: 82-year-old male, fall this morning. Right-sided rib pain. Abdominal pain. History of prostate cancer. Comparisons: CT abdomen and pelvis June 10, 2019. Chest radiographs January 30, 2021. Findings: There are linear opacities in the right lower lobe consistent with atelectasis. There is no identified pulmonary nodule or lung mass. There is no additional focal airspace consolidation. There is no pneumothorax. There is no pleural effusion. The central airways are patent. There are coronary artery calcifications and additional areas of atherosclerotic disease. The heart is not enlarged. There is no identified pericardial effusion. There is no identified abnormally enlarged mediastinal, hilar, or axillary lymph node which meets CT size criteria for adenopathy. The left vertebral artery arises directly off the aortic arch. The liver is unremarkable in size and contour. There is no identified liver lesion. The main, right, and left portal veins are patent. The gallbladder is distended. There is no CT apparent gallstone or evidence of acute cholecystitis. There is no biliary ductal dilation. The main pancreatic duct is not abnormally dilated. Unremarkable appearance of the pancreatic parenchyma. The spleen is normal in size. The adrenal glands are unremarkable. There are nonobstructing renal stones bilaterally measuring up to approximately 3 mm in size. The urinary collecting systems are not distended. There is no identified ureteral stone. There is diffuse urinary bladder wall thickening which may reflect cystitis and/or chronic outlet obstruction. There are surgical clips in the expected location of the prostate which appears to be absent. There are fluid-filled dilated segments of small bowel which measure up to approximately 3.5 cm in diameter. There is small bowel wall thickening noted on axial image 202 and adjacent sequential images in the right lower quadrant. This is not particularly of long segment length. The fluid filled distended segments of small bowel are proximal to this level. There is no identified free intraperitoneal air. There is no identified drainable fluid collection. There is no sizable volume free fluid in the abdomen or pelvis. There are atherosclerotic calcifications. There is no identified abnormally enlarged lymph node in the abdomen or pelvis meeting CT size criteria for adenopathy. There are multilevel degenerative changes of the spine. There are mildly displaced fractures of the right 10th and 11th ribs laterally. Impression: 1. Focal wall thickening of small bowel in the right lower quadrant which could relate to a nonspecific enteritis. Infectious and inflammatory etiologies are considered. This is also not particularly long segment length. Malignancy would be in the differential diagnosis. 2. Fluid-filled mildly dilated segments of small bowel proximal to the area of wall thickening of the small bowel which may reflect small bowel obstruction. 3. No identified acute cardiopulmonary abnormality. 4. Mildly displaced fractures of the right 10th and 11th ribs laterally. Dictated by: Dictated on workstation # [id number]
[2022-08-25] MEDS ORDERED: NS IV 500 ML 500 ML IV ONE (17:45)
--- NOTE | 2022-08-25 17:48 | Diagnostic Imaging Report ---
CLINICAL INDICATION: Patient is status post fall and dizzy. COMPARISON: None. EXAM: Real-time ultrasound carotid Doppler duplex imaging is performed bilaterally with multiple real-time grayscale images obtained in various projections. Additional spectral analysis and color Doppler duple images were also obtained. Peak systolic velocity, ICA/CCA peak systolic ratio, spectral analysis, and vascular morphology are studied. FINDINGS: ARTERY VELOCITY Right Left CCA 0.96 m/s 1.01 m/s ICA 0.77 m/s 1.35 m/s ECA 1.25 m/s 0.81 m/s ICA/CCA 0.80 1.34 VERT.ART Antegrade Antegrade There is moderate atherosclerotic disease and irregularity involving the bilateral carotid arteries with the ICA bulbs affected the most. IMPRESSION: There is bilateral carotid artery atherosclerotic disease with no grayscale or Doppler evidence of significant vascular stenosis. Dictated by: Dictated on workstation # [id number]
[2022-08-25] MEDS ORDERED: cefTRIAXone PRE-MIX 50 ML IV STA (18:43)
[2022-08-25] MEDS ORDERED: ACETAMINOPHEN 500 MG TAB (TYLENOL) PO ONE (19:00)
[2022-08-25] MEDS ORDERED: CEFD300C3 PO (19:12)
[2022-08-25 19:14] VITALS: BP 145/83
== END 2022-08-25 19:14 | disposition home or self-care (01) ==
LOC: EDUNIT# 14:11 → ER 14:13
DX: S22.41XA Multiple fractures of ribs, right side, initial encounter for closed fracture (principal); S80.01XA Contusion of right knee, initial encounter; N39.0 Urinary tract infection, site not specified; E86.1 Hypovolemia; W18.30XA Fall on same level, unspecified, initial encounter; W22.8XXA Striking against or struck by other objects, initial encounter
CPT/HCPCS: 36415; 70450; 71260; 73562; 74177; 80053; 81000; 83735; 85025; 87077; 87088; 87186; 93005; 93880